=== PATIENT | male | born 1940 | race African-American/Black ===

== ENCOUNTER → 2016-05-28 | Outpatient (CLI) | payer MEDICARE, OTHER | LOC: RAD 09:56 | PROVIDERS: ATTEND Family Medicine | DX: Z01.811 Encounter for preprocedural respiratory examination (principal) | CPT/HCPCS: 71020 ==

== ENCOUNTER 2018-01-29 22:33 | Inpatient (IN) | payer MEDICARE, OTHER ==
[2018-01-29] MEDS ORDERED: NORMAL SALINE 1000 ML 1,000 ML IV ONE (23:18)
--- NOTE | 2018-01-29 23:18 | ER Document Report ---
ED Medical Screen (RME) - General Chief Complaint: Abdominal Pain Stated Complaint: ABDOMINAL PAIN Time Seen by Provider: 01/29/18 23:16 Notes: 77-year-old male that comes to the emergency department for chief complaint of right lower quadrant abdominal pain, symptoms started yesterday and have worsened, he states he barely ate anything today because he has no appetite. Denies fevers, vomiting, flank pain, or any other locations of pain. No abdominal surgeries. TRAVEL OUTSIDE OF THE [place] IN LAST 30 DAYS: No - Related Data Allergies/Adverse Reactions: No Known Allergies Allergy (Verified 05/19/15 09:19) Past Medical History - Past Medical History Cardiac Medical History: Reports: Hx Hypertension Denies: Hx Coronary Artery Disease, Hx Heart Attack Pulmonary Medical History: Reports: Hx Asthma Denies: Hx Bronchitis, Hx COPD, Hx Pneumonia Neurological Medical History: Denies: Hx Cerebrovascular Accident, Hx Seizures Musculoskeltal Medical History: Denies Hx Arthritis - Immunizations Hx Diphtheria, Pertussis, Tetanus Vaccination: No Physical Exam - Vital signs Vitals: Temp Pulse Resp BP Pulse Ox 97.9 F 86 18 100/65 98 01/29/18 23:02 01/29/18 23:02 01/29/18 23:02 01/29/18 23:02 01/29/18 23:02 - Abdominal Tenderness: Tender - Tender in the mid right lower abdomen, exam limited by sitting position Course - Re-evaluation Re-evalutation: Patient is calm, well-appearing, however he does have right lower quadrant tenderness on exam although this is limited by sitting position. Initiating workup. Rechecked blood pressure in triage, systolic 104, diastolic 60s. - Vital Signs Vital signs: Temp Pulse Resp BP Pulse Ox 97.9 F 86 18 100/65 98 01/29/18 23:02 01/29/18 23:02 01/29/18 23:02 01/29/18 23:02 01/29/18 23:02 Doctor's Discharge - Discharge Referrals: YVON STANTON MD [Primary Care Provider] - Follow up as needed
[2018-01-30 00:06] LABS: ABSOLUTE LYMPHOCYTES (AUTO) 1.6 10^3/uL (0.5-4.7); ABSOLUTE MONOCYTES (AUTO) 1.6 10^3/uL (0.1-1.4); BASOPHILS % (AUTO) 0.2 % (0-2); EOSINOPHILS % (AUTO) 0.1 % (0-6); HEMATOCRIT 42.5 % (37.9-51.0); HEMOGLOBIN 14.7 g/dL (13.5-17.0); MEAN CORPUSCULAR HEMOGLOBIN 32.2 pg (27.0-33.4); MEAN CORPUSCULAR HGB CONC 34.6 g/dL (32.0-36.0); MEAN CORPUSCULAR VOLUME 93 fl (80-97); MONOCYTES % (AUTO) 15.4 % (3-13); PLATELET COUNT 197 10^3/uL (150-450); RED BLOOD COUNT 4.55 10^6/uL (4.35-5.55); RED CELL DISTRIBUTION WIDTH 13.7 % (11.5-14.0); SEGMENTED NEUTROPHILS % (AUTO) 68.3 % (42-78); TOTAL CELLS COUNTED % (AUTO) 100 %; WHITE BLOOD COUNT 10.2 10^3/uL (4.0-10.5)
[2018-01-30 00:19] LABS: ALANINE AMINOTRANSFERASE 39 U/L (21-72); ALBUMIN 4.3 g/dL (3.5-5.0); ALKALINE PHOSPHATASE 59 U/L (38-126); ANION GAP 12 (5-19); ASPARTATE AMINO TRANSFERASE 26 U/L (17-59); BILIRUBIN,DIRECT 0.5 mg/dL (0.0-0.4); BILIRUBIN,TOTAL 1.3 mg/dL (0.2-1.3); BLOOD UREA NITROGEN 12 mg/dL (7-20); CALCIUM 9.4 mg/dL (8.4-10.2); CARBON DIOXIDE 24 mmol/L (22-30); CHLORIDE 102 mmol/L (98-107); GLUCOSE 117 mg/dL (75-110); POTASSIUM 4.7 mmol/L (3.6-5.0); SODIUM 137.7 mmol/L (137-145)
[2018-01-30 00:20] LABS: APPEARANCE,URINE CLOUDY; BILIRUBIN,URINE NEGATIVE (NEGATIVE); COLOR,URINE YELLOW; GLUCOSE, URINE NEGATIVE (NEGATIVE); KETONES,URINE TRACE mg/dL (NEGATIVE); LEUKOCYTE ESTERASE,URINE LARGE (NEGATIVE); NITRITE,URINE NEGATIVE (NEGATIVE); PROTEIN,URINE NEGATIVE (NEGATIVE); URINE SPECIFIC GRAVITY 1.017; UROBILINOGEN,URINE NEGATIVE mg/dL (<2.0)
[2018-01-30] MEDS ORDERED: NORMAL SALINE 1000 ML 1,000 ML IV ONE (01:47)
[2018-01-30] MEDS ORDERED: ONDANSETRON HCL INJ/PF 4 MG/2 ML SDV IV ONE (01:47)
[2018-01-30] MEDS ORDERED: MORPHINE SULFATE 10 MG/ML INJ IV ONE (01:48)
--- NOTE | 2018-01-30 01:56 | ER Document Report ---
ED GI/ - General Chief Complaint: Abdominal Pain Stated Complaint: ABDOMINAL PAIN Time Seen by Provider: 01/29/18 23:16 Information source: Patient TRAVEL OUTSIDE OF THE [place] IN LAST 30 DAYS: No - HPI Notes: 01/30/18 01:51 77-year-old male with history of PE on Xarelto presents with right lower quadrant pain starting yesterday. He has a hard time describing it but he states it is not sharp. It presented in the right lower quadrant has not moved. There is no back or flank pain with it and no other radiation. Denies fever nausea or vomiting but he has had significant anorexia. Denies hematuria or dysuria. Denies diarrhea. He is blind so he has not sure if he has had any bleeding. - Related Data Allergies/Adverse Reactions: No Known Allergies Allergy (Verified 05/19/15 09:19) Past Medical History - Social History Smoking Status: Never Smoker Family History: Reviewed & Not Pertinent Patient has suicidal ideation: No Patient has homicidal ideation: No - Past Medical History Cardiac Medical History: Reports: Hx Hypertension Denies: Hx Coronary Artery Disease, Hx Heart Attack Pulmonary Medical History: Reports: Hx Asthma Denies: Hx Bronchitis, Hx COPD, Hx Pneumonia Neurological Medical History: Denies: Hx Cerebrovascular Accident, Hx Seizures Renal/ Medical History: Denies: Hx Peritoneal Dialysis Musculoskeletal Medical History: Denies Hx Arthritis - Immunizations Hx Diphtheria, Pertussis, Tetanus Vaccination: No Review of Systems - Review of Systems -: Yes All other systems reviewed and negative Physical Exam - Vital signs Vitals: Temp Pulse Resp BP Pulse Ox 97.9 F 86 18 100/65 98 01/29/18 23:02 01/29/18 23:02 01/29/18 23:02 01/29/18 23:02 01/29/18 23:02 Interpretation: Normal - Notes Notes: GENERAL: VS as per nursing doc. Well-appearing, well-nourished and in no acute distress. HEAD: Atraumatic, normocephalic. 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 NECK: Normal range of motion, supple without lymphadenopathy. LUNGS: Breath sounds clear to auscultation bilaterally and equal. No wheezes rales or rhonchi. HEART: Regular rate and rhythm without murmurs. ABDOMEN: Soft, No guarding, no rebound but positive Rovsing. No masses appreciated. No [place] sign. BACK: No CVA tenderness. EXTREMITIES: Normal range of motion, no calf tenderness, no edema. NEUROLOGICAL: Cranial nerves grossly intact. Normal speech. Normal sensory and motor exams. No gross cerebellar abnormalities. PSYCH: Normal mood, normal affect. SKIN: Warm, dry, normal turgor, no lesions noted. Course - Re-evaluation Re-evalutation: 01/30/18 02:03 - Vital Signs Vital signs: Temp Pulse Resp BP Pulse Ox 97.9 F 86 18 100/65 98 01/29/18 23:02 01/29/18 23:02 01/29/18 23:02 01/29/18 23:02 01/29/18 23:02 - Laboratory Result Diagrams: 01/29/18 23:40 01/29/18 23:40 Laboratory results interpreted by me: 01/29/18 01/29/18 01/29/18 23:40 23:40 23:40 Monocytes % 15.4 H Absolute Monocytes 1.6 H Creatinine 1.41 H Est GFR ( Amer) 59 L Est GFR (Non-Af Amer) 49 L Glucose 117 H Direct Bilirubin 0.5 H Urine Ketones TRACE H Urine Blood SMALL H Ur Leukocyte Esterase LARGE H Discharge - Discharge Clinical Impression: Diverticulitis large intestine w/o perforation or abscess w/o bleeding Condition: Fair Disposition: ADMITTED INPATIENT Admitting Provider: [facility] Admitted: Medical Floor
--- NOTE | 2018-01-30 02:53 | RADIOLOGY REPORT (SQ) ---
EXAM DESCRIPTION: CT ABDOMEN PELVIS WITH IV CONTRAST COMPLETED DATE/TME: 01/30/2018 00:00 CLINICAL HISTORY: RLQ pain, AFEBRILE, WBC 10.2 COMPARISON: None Available. TECHNIQUE: CT of the abdomen and pelvis performed following IV administration of 100 mL of Omnipaque 350. Portal venous and delayed phase imaging obtained. DLP: 1070.17 mGycm FINDINGS: Lung Bases: The visualized lung bases are clear. Bones: No destructive bone lesions identified. Degenerative change of the spine. Abdomen: Liver: The liver has normal size and density. No intrahepatic mass or biliary dilatation. Gallbladder: No calcified gallstones. Spleen, Pancreas, and Adrenal Glands: The spleen, pancreas, and adrenal glands are unremarkable. Kidneys: The kidneys have normal size and contour without evidence of solid mass or hydronephrosis. Vasculature: Aortoiliac atherosclerosis. IVC is unremarkable. The portal vein is patent. The proximal visceral and renal arteries are patent. Stomach: The stomach and duodenum have normal course. Other: No free intraperitoneal air. Tiny amount of free fluid. Pelvis: Bladder: Urinary bladder is unremarkable. Bowel: Scattered diverticula throughout the colon. There is a large diverticulum arising from the cecum with adjacent inflammatory change. No pericolic abscess formation. Appendix: There is inflammatory change in the proximal aspect of the appendix however the distal appendix is normal caliber and is filled with contrast. Pelvis: Prostate is not enlarged. IMPRESSION: 1. Inflammatory change of the cecum at the site of a cecal diverticulum. Findings most suggestive of cecal diverticulitis. The cecal diverticulum is near the origin of the appendix. The proximal appendix does appear mildly inflamed however the appendix distally has normal caliber and fills with oral contrast. Acute appendicitis is considered less likely. Continued CT follow-up may be helpful. Urgent finding reported to Dr. Kendrick at 01/30/2018 1:51 AM CDT This exam was performed according to our departmental dose-optimization program, which includes automated exposure control, adjustment of the mA and/or kV according to patient size and/or use of iterative reconstruction technique.
[2018-01-30] MEDS ORDERED: CIPROFLOXACIN 400 MG/D5W RTU 400 MG/200 ML RTUPB IV ONE (03:02)
[2018-01-30] MEDS ORDERED: ONDANSETRON HCL INJ/PF 4 MG/2 ML SDV IV PRN (03:07)
[2018-01-30] MEDS ORDERED: METRONIDAZOLE 500 MG/NS RTU 500 MG/100 ML RTUPB IV ONE (03:30)
[2018-01-30] MEDS: MORPHINE SULFATE 10 MG/ML INJ IV PRN ×3 (05:57→22:28)
[2018-01-30] MEDS: NORMAL SALINE 1000 ML 1,000 ML IV PRN (07:30)
[2018-01-30] MEDS: METRONIDAZOLE 500 MG/NS RTU 500 MG/100 ML RTUPB IV SCH ×3 (08:59→20:57)
--- NOTE | 2018-01-30 09:53 | PDOC H&P ---
History of Present Illness Admission Date/PCP: 01/30/18 03:33 YVON STANTON MD Patient complains of: Right lower quadrant pain History of Present Illness: EMELI DAMON is a 77 year old male This is a 77-year-old male with the history of the hypertensions history of postherpetic chronic pain and a history of the pulmonary embolism diagnosed in the May 2017 with Unprovoked Currently on Xarelto 20 mg p.o. dailyCame to the emergency department with a complaint of right lower quadrant pain started yesterday denied any nausea no vomiting denied any blood in the stools or any black stools Initial workup in the emergency department the CT abdomen and pelvis with a possible cecum diverticulitis no Sign of any acute appendicitis as per discussed with your physicians to the Dr. Stovall Suggest no need any surgical intervention at this point When I saw the patient in the emergency department patient was feeling better still having some pain but controlled with the pain medications denied any nausea no vomiting Patient's denied any chest pain denied any shortness of the breath Patient's denied any history of coronary disease in the past Since last colonoscopy was done 3 years back was all stable Past Medical History Cardiac Medical History: Reports: Hypertension Denies: Coronary Artery Disease, Myocardial Infarction Pulmonary Medical History: Reports: Asthma Denies: Bronchitis, Chronic Obstructive Pulmonary Disease (COPD), Pneumonia Neurological Medical History: Denies: Seizures Musculoskeltal Medical History: Denies: Arthritis Hematology: Denies: Anemia Social History Smoking Status: Never Smoker Frequency of Alcohol Use: None Hx Recreational Drug Use: No Hx Prescription Drug Abuse: No Family History Family History: Reviewed & Not Pertinent Parental Family History Reviewed: Yes Children Family History Reviewed: Yes Sibling(s) Family History Reviewed.: Yes Medication/Allergy Allergies/Adverse Reactions: No Known Allergies Allergy (Verified 05/19/15 09:19) Review of Systems Constitutional: ABSENT: chills, fever(s), headache(s), weight gain, weight loss Eyes: ABSENT: visual disturbances Ears: ABSENT: hearing changes Cardiovascular: ABSENT: chest pain, dyspnea on exertion, edema, orthropnea, palpitations Respiratory: ABSENT: cough, hemoptysis Gastrointestinal: PRESENT: abdominal pain. ABSENT: constipation, diarrhea, hematemesis, hematochezia, nausea, vomiting Genitourinary: ABSENT: dysuria, hematuria Musculoskeletal: ABSENT: joint swelling Integumentary: ABSENT: rash, wounds Neurological: ABSENT: abnormal gait, abnormal speech, confusion, dizziness, focal weakness, syncope Psychiatric: ABSENT: anxiety, depression, homidical ideation, suicidal ideation Endocrine: ABSENT: cold intolerance, heat intolerance, menstrual abnormalities, polydipsia, polyuria Hematologic/Lymphatic: ABSENT: easy bleeding, easy bruising, lymphadenopathy Physical Exam Vital Signs: Temp Pulse Resp BP Pulse Ox 98.1 F 74 11 L 116/57 L 97 01/30/18 06:03 01/30/18 06:03 01/30/18 06:03 01/30/18 06:03 01/30/18 06:03 Intake & Output 01/29/18 01/30/18 01/31/18 06:59 06:59 06:59 Intake Total 300 Output Total 400 Balance 300 -400 General appearance: PRESENT: no acute distress, well-developed, well-nourished Head exam: PRESENT: atraumatic, normocephalic Eye exam: PRESENT: conjunctiva pink, EOMI, PERRLA. ABSENT: scleral icterus Ear exam: PRESENT: normal external ear exam Mouth exam: PRESENT: moist, tongue midline Neck exam: PRESENT: full ROM. ABSENT: carotid bruit, JVD, lymphadenopathy, thyromegaly Respiratory exam: PRESENT: clear to auscultation [place] Cardiovascular exam: PRESENT: RRR. ABSENT: diastolic murmur, rubs, systolic murmur Pulses: PRESENT: normal dorsalis pedis pul, +2 pedal pulses bilateral Vascular exam: PRESENT: normal capillary refill GI/Abdominal exam: PRESENT: normal bowel sounds, soft, tenderness. ABSENT: distended, guarding, mass, organolmegaly, rebound Additonal comments: In the right lower quadrant area Rectal exam: PRESENT: deferred Extremities exam: ABSENT: pedal edema Musculoskeletal exam: PRESENT: ambulatory Neurological exam: PRESENT: alert, awake, oriented to person, oriented to place , oriented to time, oriented to situation, CN II-XII grossly intact. ABSENT: motor sensory deficit Psychiatric exam: PRESENT: appropriate affect, normal mood. ABSENT: homicidal ideation, suicidal ideation Skin exam: PRESENT: dry, intact, warm. ABSENT: cyanosis, rash Results Impressions: Abdomen/Pelvis CT 01/30/18 00:00 IMPRESSION: 1. Inflammatory change of the cecum at the site of a cecal diverticulum. Findings most suggestive of cecal diverticulitis. The cecal diverticulum is near the origin of the appendix. The proximal appendix does appear mildly inflamed however the appendix distally has normal caliber and fills with oral contrast. Acute appendicitis is considered less likely. Continued CT follow-up may be helpful. Urgent finding reported to Dr. Kendrick at 01/30/2018 1:51 AM CDT This exam was performed according to our departmental dose-optimization program, which includes automated exposure control, adjustment of the mA and/or kV according to patient size and/or use of iterative reconstruction technique. Assessment & Plan - Diagnosis (1) Diverticulitis large intestine w/o perforation or abscess w/o bleeding Is this a current diagnosis for this admission?: Yes Plan: Continues to IV Cipro and Flagyl continuous IV fluid keep her n.p.o. until the surgical evaluations completely done (2) Hypertension Qualifiers: Hypertension type: essential hypertension Qualified Code(s): I10 - Essential (primary) hypertension Is this a current diagnosis for this admission?: Yes Plan: Continues to current medications (3) Pulmonary embolism Qualifiers: Pulmonary embolism type: other Chronicity: chronic Acute cor pulmonale presence: without acute cor pulmonale Qualified Code(s): I27.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 Is this a current diagnosis for this admission?: Yes Plan: Currently hold the Xarelto and start the patient on Lovenox therapy Patient's first episode was in May 2017 but currently is not visible to stop the Xarelto completely due to the infections possible patients need to reevaluate to stop the medications after 6 week of this episodes (4) Neuralgia, post-herpetic Is this a current diagnosis for this admission?: Yes Plan: Continues to gabapentin - Time Time Spent: 30 to 50 Minutes Medications reviewed and adjusted accordingly: Yes Anticipated discharge: Home Within: Other - Inpatient Certification Based on my medical assessment, after consideration of the patient's comorbidities, presenting symptoms, or acuity I expect that the services needed warrant INPATIENT care.: Yes I certify that my determination is in accordance with my understanding of Medicare's requirements for reasonable and necessary INPATIENT services [42 CFR 412.3e].: Yes Medical Necessity: Need Close Monitoring Due to Risk of Patient Decompensation, Need For IV Fluids, Need for IV Antibiotics Post Hospital Care: D/C Tie Layer Documentation - Plan Summary Plan Summary: Admit in the medical floor see other MD orders consult the surgery continues to IV antibiotic
[2018-01-30] MEDS: FAMOTIDINE INJ/PF 20 MG/2 ML SDV IV SCH ×2 (10:28→21:18)
[2018-01-30] MEDS: CIPROFLOXACIN 400 MG/D5W RTU 400 MG/200 ML RTUPB IV SCH (17:33)
[2018-01-30 17:37] LABS: APPEARANCE,URINE SLIGHTLY-CLOUDY; BILIRUBIN,URINE NEGATIVE (NEGATIVE); COLOR,URINE YELLOW; GLUCOSE, URINE NEGATIVE (NEGATIVE); KETONES,URINE TRACE mg/dL (NEGATIVE); LEUKOCYTE ESTERASE,URINE LARGE (NEGATIVE); NITRITE,URINE NEGATIVE (NEGATIVE); PROTEIN,URINE NEGATIVE (NEGATIVE); UROBILINOGEN,URINE NEGATIVE mg/dL (<2.0)
[2018-01-30] MEDS ORDERED: DORZOLAMIDE OU SCH (18:00)
[2018-01-30] MEDS ORDERED: BRIMONIDINE OU SCH (18:00)
[2018-01-30] MEDS ORDERED: [UNRECOGNIZED DRUG - OTHER] OU SCH (18:00)
[2018-01-30] MEDS: TIMOLOL MALEATE 0.5% OPH SOLN 5 ML OU SCH (18:52)
[2018-01-30] MEDS: ACETAMINOPHEN 325 MG TABLET PO PRN (20:51)
[2018-01-30] MEDS: ENOXAPARIN SODIUM INJ 100 MG/1 ML DISP.SYRIN SUBCUT SCH (21:17)
[2018-01-31] MEDS: ACETAMINOPHEN 325 MG TABLET PO PRN ×2 (00:51→06:22)
[2018-01-31] MEDS: METRONIDAZOLE 500 MG/NS RTU 500 MG/100 ML RTUPB IV SCH ×4 (02:33→21:10)
[2018-01-31] MEDS: CIPROFLOXACIN 400 MG/D5W RTU 400 MG/200 ML RTUPB IV SCH ×2 (05:00→17:06)
[2018-01-31 05:52] LABS: ABSOLUTE LYMPHOCYTES (AUTO) 1.4 10^3/uL (0.5-4.7); ABSOLUTE NEUT (AUTO) 9.8 10^3/uL (1.7-8.2); BASOPHILS % (AUTO) 0.2 % (0-2); EOSINOPHILS % (AUTO) 0.1 % (0-6); HEMATOCRIT 36.9 % (37.9-51.0); LYMPHOCYTES % (AUTO) 10.9 % (13-45); MEAN CORPUSCULAR HEMOGLOBIN 31.8 pg (27.0-33.4); MEAN CORPUSCULAR HGB CONC 33.5 g/dL (32.0-36.0); MEAN CORPUSCULAR VOLUME 95 fl (80-97); MONOCYTES % (AUTO) 14.8 % (3-13); PLATELET COUNT 147 10^3/uL (150-450); RED CELL DISTRIBUTION WIDTH 14.1 % (11.5-14.0); TOTAL CELLS COUNTED % (AUTO) 100 %; WHITE BLOOD COUNT 13.2 10^3/uL (4.0-10.5)
[2018-01-31 06:11] LABS: HEMOGLOBIN 12.4 g/dL (13.5-17.0)
[2018-01-31 06:20] LABS: ALANINE AMINOTRANSFERASE 25 U/L (21-72); ALBUMIN 2.9 g/dL (3.5-5.0); ALKALINE PHOSPHATASE 43 U/L (38-126); ANION GAP 8 (5-19); ASPARTATE AMINO TRANSFERASE 15 U/L (17-59); BILIRUBIN,DIRECT 1.1 mg/dL (0.0-0.4); BILIRUBIN,TOTAL 1.6 mg/dL (0.2-1.3); BLOOD UREA NITROGEN 10 mg/dL (7-20); CALCIUM 7.8 mg/dL (8.4-10.2); CARBON DIOXIDE 22 mmol/L (22-30); CHLORIDE 106 mmol/L (98-107); GLUCOSE 96 mg/dL (75-110); POTASSIUM 3.8 mmol/L (3.6-5.0); SODIUM 135.6 mmol/L (137-145); TOTAL PROTEIN 5.8 g/dL (6.3-8.2)
[2018-01-31] MEDS: ENOXAPARIN SODIUM INJ 100 MG/1 ML DISP.SYRIN SUBCUT SCH ×2 (09:13→21:16)
[2018-01-31] MEDS: AMLODIPINE BESYLATE 5 MG TABLET PO SCH (09:14)
[2018-01-31] MEDS: FAMOTIDINE INJ/PF 20 MG/2 ML SDV IV SCH ×2 (09:14→21:07)
[2018-01-31] MEDS: TIMOLOL MALEATE 0.5% OPH SOLN 5 ML OU SCH ×2 (11:16→17:07)
[2018-01-31] MEDS: MORPHINE SULFATE 10 MG/ML INJ IV PRN ×2 (15:38→20:31)
--- NOTE | 2018-01-31 18:13 | PDOC PROGRESS REPORT ---
Subjective Progress Note for:: 01/31/18 Subjective:: Patient seen by the bedside, admitted for acute diverticulitis of the colon, complaining of pain in the right lower quadrant Reason For Visit: ABD PAIN Physical Exam Vital Signs: Temp Pulse Resp BP Pulse Ox 99.9 F 92 20 127/64 H 95 01/31/18 15:16 01/31/18 15:16 01/31/18 15:16 01/31/18 15:16 01/31/18 15:16 Intake & Output 01/30/18 01/31/18 02/01/18 06:59 06:59 06:59 Intake Total 300 1800 200 Output Total 1375 425 Balance 300 425 -225 Weight 96.3 kg General appearance: PRESENT: no acute distress Eye exam: PRESENT: PERRLA Respiratory exam: PRESENT: clear to auscultation [place] Cardiovascular exam: PRESENT: +S1, +S2 GI/Abdominal exam: PRESENT: tenderness - RLQ abdomen Neurological exam: PRESENT: alert Results Laboratory Results: 01/31/18 04:39 01/31/18 04:39 01/31/18 01/31/18 04:39 04:39 WBC 13.2 H RBC 3.90 L Hgb 12.4 L D Hct 36.9 L MCV 95 MCH 31.8 MCHC 33.5 RDW 14.1 H Plt Count 147 L Seg Neutrophils % 74.0 Lymphocytes % 10.9 L Monocytes % 14.8 H Eosinophils % 0.1 Basophils % 0.2 Absolute Neutrophils 9.8 H Absolute Lymphocytes 1.4 Absolute Monocytes 2.0 H Absolute Eosinophils 0.0 Absolute Basophils 0.0 Sodium 135.6 L Potassium 3.8 Chloride 106 Carbon Dioxide 22 Anion Gap 8 BUN 10 Creatinine 1.19 Est GFR ( Amer) > 60 Est GFR (Non-Af Amer) > 60 Glucose 96 Calcium 7.8 L Total Bilirubin 1.6 H AST 15 L ALT 25 Alkaline Phosphatase 43 Total Protein 5.8 L Albumin 2.9 L Impressions: Abdomen/Pelvis CT 01/30/18 00:00 IMPRESSION: 1. Inflammatory change of the cecum at the site of a cecal diverticulum. Findings most suggestive of cecal diverticulitis. The cecal diverticulum is near the origin of the appendix. The proximal appendix does appear mildly inflamed however the appendix distally has normal caliber and fills with oral contrast. Acute appendicitis is considered less likely. Continued CT follow-up may be helpful. Urgent finding reported to Dr. Kendrick at 01/30/2018 1:51 AM CDT This exam was performed according to our departmental dose-optimization program, which includes automated exposure control, adjustment of the mA and/or kV according to patient size and/or use of iterative reconstruction technique. Assessment & Plan - Diagnosis (1) Diverticulitis large intestine w/o perforation or abscess w/o bleeding Is this a current diagnosis for this admission?: Yes Plan: Continue IV antibiotic start clear liquid diet (2) Hypertension Qualifiers: Hypertension type: essential hypertension Qualified Code(s): I10 - Essential (primary) hypertension Is this a current diagnosis for this admission?: Yes (3) Neuralgia, post-herpetic Is this a current diagnosis for this admission?: Yes (4) Pulmonary embolism Qualifiers: Pulmonary embolism type: other Chronicity: chronic Acute cor pulmonale presence: without acute cor pulmonale Qualified Code(s): I27.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 Is this a current diagnosis for this admission?: Yes
[2018-02-01] MEDS: ACETAMINOPHEN 325 MG TABLET PO PRN (02:05)
[2018-02-01] MEDS: METRONIDAZOLE 500 MG/NS RTU 500 MG/100 ML RTUPB IV SCH ×4 (02:05→21:11)
[2018-02-01] MEDS: CIPROFLOXACIN 400 MG/D5W RTU 400 MG/200 ML RTUPB IV SCH ×2 (05:19→17:27)
[2018-02-01 05:49] LABS: HEMOGLOBIN 11.5 g/dL (13.5-17.0); MEAN CORPUSCULAR HEMOGLOBIN 31.7 pg (27.0-33.4); MEAN CORPUSCULAR HGB CONC 33.8 g/dL (32.0-36.0); MEAN CORPUSCULAR VOLUME 94 fl (80-97); PLATELET COUNT 153 10^3/uL (150-450); RED BLOOD COUNT 3.63 10^6/uL (4.35-5.55); RED CELL DISTRIBUTION WIDTH 14.3 % (11.5-14.0)
[2018-02-01 06:08] LABS: ABSOLUTE LYMPHOCYTES# (MANUAL) 0.8 10^3/uL (0.5-4.7); ABSOLUTE MONOCYTES # (MANUAL) 1.9 10^3/uL (0.1-1.4); ABSOLUTE NEUTROPHILS# (MANUAL) 9.2 10^3/uL (1.7-8.2); BAND NEUTROPHILS % (MANUAL) 2 % (3-5); BASOPHILS % (MANUAL) 0 % (0-2); EOSINOPHILS % (MANUAL) 0 % (0-6); LYMPHOCYTES % (MANUAL) 7 % (13-45); MONOCYTES % (MANUAL) 16 % (3-13); SEGMENTED NEUTROPHILS % (MAN) 75 % (42-78); TOTAL CELLS COUNTED 100
[2018-02-01 06:09] LABS: ANISOCYTOSIS SLIGHT; PLATELET CLUMPS PRESENT; PLATELET COMMENT ADEQUATE; TOXIC GRANULATION 1+; TOXIC VACUOLATION PRESENT
[2018-02-01 06:18] LABS: ANION GAP 7 (5-19); BLOOD UREA NITROGEN 9 mg/dL (7-20); CALCIUM 7.6 mg/dL (8.4-10.2); CARBON DIOXIDE 22 mmol/L (22-30); CHLORIDE 106 mmol/L (98-107); GLUCOSE 108 mg/dL (75-110); POTASSIUM 3.7 mmol/L (3.6-5.0); SODIUM 134.6 mmol/L (137-145)
[2018-02-01] MEDS: FAMOTIDINE INJ/PF 20 MG/2 ML SDV IV SCH ×2 (09:31→21:11)
[2018-02-01] MEDS: ENOXAPARIN SODIUM INJ 100 MG/1 ML DISP.SYRIN SUBCUT SCH ×2 (09:31→21:11)
[2018-02-01] MEDS: AMLODIPINE BESYLATE 5 MG TABLET PO SCH (09:31)
[2018-02-01] MEDS: TIMOLOL MALEATE 0.5% OPH SOLN 5 ML OU SCH ×2 (14:15→17:28)
[2018-02-01] MEDS: NORMAL SALINE 1000 ML 1,000 ML IV PRN (14:29)
--- NOTE | 2018-02-01 19:32 | PDOC PROGRESS REPORT ---
Subjective Progress Note for:: 02/01/18 Subjective:: Patient was seen by the bedside, he is responding to treatment, he has less pain in the right lower quadrant today, yesterday he was started on clear liquid diet, the food would be advanced to soft diet today Reason For Visit: ABD PAIN Physical Exam Vital Signs: Temp Pulse Resp BP Pulse Ox 98.1 F 76 18 118/62 98 02/01/18 16:00 02/01/18 16:00 02/01/18 16:00 02/01/18 16:00 02/01/18 16:00 Intake & Output 01/31/18 02/01/18 02/02/18 06:59 06:59 06:59 Intake Total 1800 1023 1500 Output Total 1375 925 500 Balance 803 88 3817 Weight 96.3 kg 96.4 kg General appearance: PRESENT: no acute distress Eye exam: PRESENT: PERRLA Respiratory exam: PRESENT: clear to auscultation [place] Cardiovascular exam: PRESENT: +S1, +S2 GI/Abdominal exam: PRESENT: soft Neurological exam: PRESENT: alert Results Laboratory Results: 02/01/18 04:44 02/01/18 04:44 02/01/18 02/01/18 04:44 04:44 WBC 12.0 H RBC 3.63 L Hgb 11.5 L Hct 34.0 L MCV 94 MCH 31.7 MCHC 33.8 RDW 14.3 H Plt Count 153 Seg Neutrophils % Not Reportable Lymphocytes % Not Reportable Monocytes % Not Reportable Eosinophils % Not Reportable Basophils % Not Reportable Absolute Neutrophils Not Reportable Absolute Lymphocytes Not Reportable Absolute Monocytes Not Reportable Absolute Eosinophils Not Reportable Absolute Basophils Not Reportable Sodium 134.6 L Potassium 3.7 Chloride 106 Carbon Dioxide 22 Anion Gap 7 BUN 9 Creatinine 1.16 Est GFR ( Amer) > 60 Est GFR (Non-Af Amer) > 60 Glucose 108 Calcium 7.6 L Impressions: Abdomen/Pelvis CT 01/30/18 00:00 IMPRESSION: 1. Inflammatory change of the cecum at the site of a cecal diverticulum. Findings most suggestive of cecal diverticulitis. The cecal diverticulum is near the origin of the appendix. The proximal appendix does appear mildly inflamed however the appendix distally has normal caliber and fills with oral contrast. Acute appendicitis is considered less likely. Continued CT follow-up may be helpful. Urgent finding reported to Dr. Kendrick at 01/30/2018 1:51 AM CDT This exam was performed according to our departmental dose-optimization program, which includes automated exposure control, adjustment of the mA and/or kV according to patient size and/or use of iterative reconstruction technique. Assessment & Plan - Diagnosis (1) Diverticulitis large intestine w/o perforation or abscess w/o bleeding Is this a current diagnosis for this admission?: Yes Plan: Continue IV antibiotic advance diet to soft diet (2) Hypertension Qualifiers: Hypertension type: essential hypertension Qualified Code(s): I10 - Essential (primary) hypertension Is this a current diagnosis for this admission?: Yes (3) Neuralgia, post-herpetic Is this a current diagnosis for this admission?: Yes (4) Pulmonary embolism Qualifiers: Pulmonary embolism type: other Chronicity: chronic Acute cor pulmonale presence: without acute cor pulmonale Qualified Code(s): I27.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 Is this a current diagnosis for this admission?: Yes
[2018-02-02] MEDS: METRONIDAZOLE 500 MG/NS RTU 500 MG/100 ML RTUPB IV SCH ×4 (02:01→22:40)
[2018-02-02] MEDS: CIPROFLOXACIN 400 MG/D5W RTU 400 MG/200 ML RTUPB IV SCH ×2 (05:04→17:29)
[2018-02-02 06:16] LABS: HEMATOCRIT 34.8 % (37.9-51.0); MEAN CORPUSCULAR HEMOGLOBIN 32.1 pg (27.0-33.4); MEAN CORPUSCULAR HGB CONC 34.6 g/dL (32.0-36.0); MEAN CORPUSCULAR VOLUME 93 fl (80-97); PLATELET COUNT 180 10^3/uL (150-450); RED BLOOD COUNT 3.75 10^6/uL (4.35-5.55); RED CELL DISTRIBUTION WIDTH 14.4 % (11.5-14.0); WHITE BLOOD COUNT 10.3 10^3/uL (4.0-10.5)
[2018-02-02 06:44] LABS: ANION GAP 7 (5-19); BLOOD UREA NITROGEN 6 mg/dL (7-20); CALCIUM 7.6 mg/dL (8.4-10.2); CARBON DIOXIDE 22 mmol/L (22-30); CHLORIDE 106 mmol/L (98-107); GLUCOSE 101 mg/dL (75-110); POTASSIUM 3.6 mmol/L (3.6-5.0); SODIUM 135.3 mmol/L (137-145)
[2018-02-02] MEDS ORDERED: NORMAL SALINE 1000 ML 1,000 ML IV PRN (08:11)
[2018-02-02] MEDS: ENOXAPARIN SODIUM INJ 100 MG/1 ML DISP.SYRIN SUBCUT SCH (09:37)
[2018-02-02] MEDS: AMLODIPINE BESYLATE 5 MG TABLET PO SCH (09:37)
[2018-02-02] MEDS: FAMOTIDINE INJ/PF 20 MG/2 ML SDV IV SCH ×2 (09:37→22:40)
--- NOTE | 2018-02-02 09:41 | PDOC PROGRESS REPORT ---
Subjective Progress Note for:: 02/02/18 Subjective:: Patient is feeling much better Tolerate the soft diet without any problems and desired to go home Patient's denied any abdominal pain no nausea no vomiting No fever and no chills Reason For Visit: ABD PAIN Physical Exam Vital Signs: Temp Pulse Resp BP Pulse Ox 99.1 F 81 18 138/66 H 95 02/02/18 07:26 02/02/18 07:26 02/02/18 07:26 02/02/18 07:26 02/02/18 07:26 Intake & Output 02/01/18 02/02/18 02/03/18 06:59 06:59 06:59 Intake Total 1023 3144 Output Total 925 500 Balance 98 2644 Weight 96.4 kg 95.5 kg General appearance: PRESENT: no acute distress, well-developed, well-nourished Head exam: PRESENT: atraumatic, normocephalic Eye exam: PRESENT: conjunctiva pink, EOMI, PERRLA. ABSENT: scleral icterus Ear exam: PRESENT: normal external ear exam Mouth exam: PRESENT: moist, tongue midline Neck exam: PRESENT: full ROM. ABSENT: carotid bruit, JVD, lymphadenopathy, thyromegaly Respiratory exam: PRESENT: clear to auscultation chadwick Cardiovascular exam: PRESENT: RRR. ABSENT: diastolic murmur, rubs, systolic murmur Pulses: PRESENT: normal dorsalis pedis pul, +2 pedal pulses bilateral Vascular exam: PRESENT: normal capillary refill GI/Abdominal exam: PRESENT: normal bowel sounds, soft. ABSENT: distended, guarding, mass, organolmegaly, rebound, tenderness Rectal exam: PRESENT: deferred Extremities exam: ABSENT: pedal edema Musculoskeletal exam: PRESENT: ambulatory Neurological exam: PRESENT: alert, awake, oriented to person, oriented to place , oriented to time, oriented to situation, CN II-XII grossly intact. ABSENT: motor sensory deficit Psychiatric exam: PRESENT: appropriate affect, normal mood. ABSENT: homicidal ideation, suicidal ideation Skin exam: PRESENT: dry, intact, warm. ABSENT: cyanosis, rash Results Laboratory Results: 02/02/18 04:30 02/02/18 04:30 02/02/18 02/02/18 04:30 04:30 WBC 10.3 RBC 3.75 L Hgb 12.0 L Hct 34.8 L MCV 93 MCH 32.1 MCHC 34.6 RDW 14.4 H Plt Count 180 Sodium 135.3 L Potassium 3.6 Chloride 106 Carbon Dioxide 22 Anion Gap 7 BUN 6 L Creatinine 0.99 Est GFR ( Amer) > 60 Est GFR (Non-Af Amer) > 60 Glucose 101 Calcium 7.6 L Impressions: Abdomen/Pelvis CT 01/30/18 00:00 IMPRESSION: 1. Inflammatory change of the cecum at the site of a cecal diverticulum. Findings most suggestive of cecal diverticulitis. The cecal diverticulum is near the origin of the appendix. The proximal appendix does appear mildly inflamed however the appendix distally has normal caliber and fills with oral contrast. Acute appendicitis is considered less likely. Continued CT follow-up may be helpful. Urgent finding reported to Dr. Kendrick at 01/30/2018 1:51 AM CDT This exam was performed according to our departmental dose-optimization program, which includes automated exposure control, adjustment of the mA and/or kV according to patient size and/or use of iterative reconstruction technique. Assessment & Plan - Diagnosis (1) Diverticulitis large intestine w/o perforation or abscess w/o bleeding Is this a current diagnosis for this admission?: Yes Plan: Patient is currently doing well will continue Cipro and Flagyl (2) Hypertension Qualifiers: Hypertension type: essential hypertension Qualified Code(s): I10 - Essential (primary) hypertension Is this a current diagnosis for this admission?: Yes Plan: Continues to current medications (3) Pulmonary embolism Qualifiers: Pulmonary embolism type: other Chronicity: chronic Acute cor pulmonale presence: without acute cor pulmonale Qualified Code(s): I27.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 Is this a current diagnosis for this admission?: Yes Plan: Currently hold the Xarelto and start the patient on Lovenox therapy Patient's first episode was in May 2017 but currently is not visible to stop the Xarelto completely due to the infections possible patients need to reevaluate to stop the medications after 6 week of this episodes (4) Neuralgia, post-herpetic Is this a current diagnosis for this admission?: Yes Plan: Continues to gabapentin - Time Time Spent with patient: 15-24 minutes Medications reviewed and adjusted accordingly: Yes Anticipated discharge: Home Within: within 24 hours, Other - Inpatient Certification Medical Necessity: Need Close Monitoring Due to Risk of Patient Decompensation, Need for IV Antibiotics 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
[2018-02-02] MEDS ORDERED: RIVAROXABAN 10 MG TABLET PO SCH (10:00)
[2018-02-02] MEDS: TIMOLOL MALEATE 0.5% OPH SOLN 5 ML OU SCH ×2 (10:46→17:31)
--- NOTE | 2018-02-02 16:18 | RADIOLOGY REPORT (SQ) ---
EXAM DESCRIPTION: CT ABD/PELVIS NO ORAL OR IV COMPLETED DATE/TIME: 02/02/2018 3:55 pm REASON FOR STUDY: Right-sided diverticulitis persistent right lower quadrant pain COMPARISON: CT abdomen pelvis 01/30/2018 TECHNIQUE: CT scan of the abdomen and pelvis performed without intravenous contrast. Patient drank oral contrast Images reviewed with lung, soft tissue, and bone windows. Reconstructed coronal and sagittal MPR imag es reviewed. All images stored on PACS. All CT scanners at this facility use dose modulation, iterative reconstruction, and/or weight based d osing when appropriate to reduce radiation dose to as low as reasonably achievable (ALARA). [facility]: Dose Right [facility]: CareDose [facility]: Dose Right [facility]: Teradose 4D [facility]: [employer] RADIATION DOSE: CT Rad equipment meets quality standard of care and radiation dose reduction techniq ues were employed. CTDIvol: 11.3 mGy. DLP: 597 mGy-cm.mGy. LIMITATIONS: None. FINDINGS: Prior CT 01/30/2018 was reviewed in conjunction with the current exam. On the current study, there is inflammation around the cecum, extending down through the appendix and along the right iliopsoas. Cecum is thick walled. Appendix is distended, with an at appendicolith present. Adjacent to the appendix tip, a 3 cm rim enhancing abscess is present with air bubbles. Th is is worrisome for perforated appendicitis with abscess formation. This result was discussed with Dr. Stanton, 1600 hours 02/02/2018. There is oral contrast throughout the remainder of the gastrointestinal tract without evidence of bow el obstruction. There are scattered descending colon diverticuli without CT signs of acute diverticu litis left colon. No free cul-de-sac pelvic fluid. No free intraperitoneal air. LOWER CHEST: Trace right pleural effusion with bibasilar minimal atelectasis. NON-CONTRASTED LIVER, SPLEEN, ADRENALS: Evaluation limited by lack of IV contrast. No identified sign ificant masses. PANCREAS: No masses. No peripancreatic inflammatory changes. GALLBLADDER: No identified stones by CT criteria. No inflammatory changes to suggest cholecystitis. RIGHT KIDNEY AND URETER: No suspicious masses. Assessment limited by lack of IV contrast. No signif icant calcifications. No hydronephrosis or hydroureter. LEFT KIDNEY AND URETER: No suspicious masses. Assessment limited by lack of IV contrast. No signifi cant calcifications. No hydronephrosis or hydroureter. AORTA AND RETROPERITONEUM: No aneurysm. No retroperitoneal masses or adenopathy. BOWEL AND PERITONEAL CAVITY: As above APPENDIX: As above PELVIS, BLADDER, AND ABDOMINAL WALL:No abnormal masses. No free fluid. Bladder normal. BONES: No significant findings. OTHER: No other significant finding. IMPRESSION: Findings worrisome for perforated appendicitis with 3 cm abscess at the appendiceal tip. There is inflammation of the cecum with inflammation in the mesenteric fat along the right iliopsoa s region. COMMENT: Pertinent findings on the imaging study reported as a CRITICAL RESULT to YVON STANTON MD at16:00 on 02/02/2018. Category of Critical Result: Perforated appendicitis Quality ID # [id number]: Final reports with documentation of one or more dose reduction techniques (e.g., Au tomated exposure control, adjustment of the mA and/or kV according to patient size, use of iterative reconstruction technique) TECHNICAL DOCUMENTATION: JOB ID: [id number] [employer]- All Rights Reserved Reading location - IP/workstation name: [facility]
[2018-02-02] MEDS ORDERED: DEXTROSE 40% GEL 15 GM TUBE PO PRN ×2 (20:38)
[2018-02-02] MEDS ORDERED: GLUCAGON,HUMAN RECOMB 1 MG INJ SUBCUT PRN (20:38)
[2018-02-02] MEDS ORDERED: DEXTROSE 50%-WATER 25 GM/50 ML DISP.SYRIN IV PRN ×2 (20:38)
--- NOTE | 2018-02-02 20:58 | PDOC CONSULTATION ---
Consultation Consult Date: 02/02/18 Attending physician:: YVON CASH Consult reason:: Acute appendicitis History of Present Illness Admission Date/PCP: 01/30/18 03:33 YVON CASH MD History of Present Illness: EMELI DAMON is a 77 year old male Who was admitted to the hospital under the care of Dr. Cash approximately 4 days ago for right lower quadrant abdominal pain anorexia bloating and low- grade fever and chills as well as weakness. The patient was seen in the emergency department via ground rescue, evaluated and felt to have acute inflammatory process involving the cecum. CT scan of the abdomen and pelvis with oral contrast revealed possible cecal diverticulitis with localized perforation. Opinion was rendered by surgeon adult education teacher who recommended nonoperative management, intravenous antibiotics and close follow-up. He was initially kept n.p.o., started on IV ciprofloxacin and Flagyl, clinically improved, diet advanced and today wanted to be discharged home. Dr. Cash reexamined the patient this afternoon and found to have significant right lower quadrant tenderness with bloating. A repeat CT scan of the abdomen and pelvis revealed consolidated right lower quadrant abscess adjacent to the appendix, anterior to the cecum. This was interpreted by Dr. Jackson as contained, perforated appendicitis. Surgery was reconsulted and the patient was evaluated by Dr. Blancas this evening. According the patient other than not having a bowel movement and feeling bloated and somewhat uncomfortable, he has felt better since admission. Patient denies history of trauma, previous GI problems or knowledge of any colonic issues. He underwent colonoscopy by Dr. Cook approximate 4 years ago, reportedly no abnormal findings. He is status post EGD approximately [address] Olivier for gastritis and duodenitis. There is no known family history of colon cancer. Furthermore the patient states prior to last week, he was doing well tolerating a diet and having no gastrointestinal problems or any constitutional symptoms. 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, blind right eye; history of pulmonary embolus May 2017 on 10 a inhibitor Cardiac Medical History: Reports: Hypertension Denies: Coronary Artery Disease, Myocardial Infarction Pulmonary Medical History: Reports: Asthma Denies: Bronchitis, Chronic Obstructive Pulmonary Disease (COPD), Pneumonia Neurological Medical History: Denies: Seizures Musculoskeltal Medical History: Denies: Arthritis Hematology: Denies: Anemia Past Surgical History Past Surgical History: History of eye surgery Social History Smoking Status: Former Smoker Frequency of Alcohol Use: Occasional Hx Recreational Drug Use: No Hx Prescription Drug Abuse: No - Advance Directive Resuscitation Status: Full Code Family History Family History: Reviewed & Not Pertinent Parental Family History Reviewed: Yes Children Family History Reviewed: Yes Sibling(s) Family History Reviewed.: Yes Medication/Allergy Home Medications: Amlodipine Besylate [Norvasc 5 mg Tablet] 5 mg PO DAILY 01/30/18 Brimonidine/Dorzolamide/Pf [Brimonidine 0.15%-Dorzolam 2%] 1 drop OU BID Ergocalciferol (Vitamin D2) [Vitamin D2] 50,000 unit PO MO@1000 01/30/18 Rivaroxaban [Xarelto] 20 mg PO DAILY 01/30/18 Sildenafil Citrate [Viagra] 50 mg PO DAILYP PRN 01/30/18 Timolol Maleate [Timoptic 0.5% Oph Soln 5 ml] 1 drop OU BID 01/30/18 Allergies/Adverse Reactions: No Known Allergies Allergy (Verified 05/19/15 09:19) Review of Systems Constitutional: PRESENT: as per HPI Eyes: PRESENT: visual disturbances - Blindness right eye; partial blindness left eye Ears: ABSENT: hearing changes Cardiovascular: ABSENT: chest pain, dyspnea on exertion, edema, orthropnea, palpitations Respiratory: PRESENT: as per HPI Gastrointestinal: PRESENT: other - Difficulty having bowel movements the last week Genitourinary: ABSENT: dysuria, hematuria Musculoskeletal: ABSENT: joint swelling Physical Exam Vital Signs: Temp Pulse Resp BP Pulse Ox 98.8 F 73 18 127/69 H 95 02/02/18 16:00 02/02/18 16:00 02/02/18 16:00 02/02/18 16:00 02/02/18 16:00 Intake & Output 02/01/18 02/02/18 02/03/18 06:59 06:59 06:59 Intake Total 1023 3144 706 Output Total 925 500 300 Balance 98 2644 406 Weight 96.4 kg 95.5 kg General appearance: PRESENT: no acute distress Head exam: PRESENT: normocephalic Eye exam: PRESENT: other - Opacities both eyes right greater than left Teeth exam: PRESENT: poor dentation Neck exam: PRESENT: full ROM Respiratory exam: PRESENT: clear to auscultation chadwick Cardiovascular exam: PRESENT: RRR Pulses: PRESENT: normal carotid pulses, normal radial pulses, normal femoral pulses, normal dorsalis pedis pul Vascular exam: PRESENT: normal capillary refill GI/Abdominal exam: PRESENT: other - Slightly distended, tympanitic; guarding right lower quadrant; no rigidity; no scars; no hernias Rectal exam: PRESENT: deferred Extremities exam: PRESENT: full ROM Neurological exam: PRESENT: alert, awake, oriented to person, oriented to place Psychiatric exam: PRESENT: appropriate affect Results Laboratory Results: 02/02/18 04:30 02/02/18 04:30 02/02/18 02/02/18 04:30 04:30 WBC 10.3 RBC 3.75 L Hgb 12.0 L Hct 34.8 L MCV 93 MCH 32.1 MCHC 34.6 RDW 14.4 H Plt Count 180 Sodium 135.3 L Potassium 3.6 Chloride 106 Carbon Dioxide 22 Anion Gap 7 BUN 6 L Creatinine 0.99 Est GFR ( Amer) > 60 Est GFR (Non-Af Amer) > 60 Glucose 101 Calcium 7.6 L Impressions: Abdomen/Pelvis CT 02/02/18 00:00 IMPRESSION: Findings worrisome for perforated appendicitis with 3 cm abscess at the appendiceal tip. There is inflammation of the cecum with inflammation in the mesenteric fat along the right iliopsoas region. Assessment & Plan - Diagnosis (1) Acute perforated appendicitis Is this a current diagnosis for this admission?: Yes Plan: Impression: Acute appendicitis in retrospect: Patient clinically improved over several day period with intravenous antibiotics however remains tender right lower quadrant. Given the CT scan findings today, intervention in addition to intravenous antibiotics recommended; options including percutaneous drainage, with subsequent interval appendectomy versus early appendectomy, laparoscopic versus open discussed with patient, and family. Patient is not in any extremis and does not require an operation this evening. Recommendations: 1. Keep patient n.p.o. after midnight 2. Permit team to discuss management options in the morning in conjunction with radiology; additionally the patient would like consider the options discussed this evening and weigh in on the final decision. I have discussed the above with Dr. Cash, patient's primary care physician. 3. We will plan to perform an intervention tomorrow with a high probability of laparoscopic, possible open appendectomy as I believe this would be the safest, most direct, definitive management for this patient. Will check an EKG and a chest x-ray; his Xarelto has been held. (3) Hypertension Qualifiers: Hypertension type: essential hypertension Qualified Code(s): I10 - Essential (primary) hypertension Is this a current diagnosis for this admission?: Yes (4) Neuralgia, post-herpetic Is this a current diagnosis for this admission?: Yes (5) Pulmonary embolism Qualifiers: Pulmonary embolism type: other Chronicity: chronic Acute cor pulmonale presence: without acute cor pulmonale Qualified Code(s): I27.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 Is this a current diagnosis for this admission?: Yes - Time Time Spent: 50 to 70 Minutes Smoking Cessation Education: over 10 minutes Medications reviewed and adjusted accordingly: Yes Anticipated discharge: Home - Inpatient Certification Based on my medical assessment, after consideration of the patient's comorbidities, presenting symptoms, or acuity I expect that the services needed warrant INPATIENT care.: Yes I certify that my determination is in accordance with my understanding of Medicare's requirements for reasonable and necessary INPATIENT services [42 CFR 412.3e].: Yes Medical Necessity: Need For IV Fluids, Need for Pain Control, Need for IV Antibiotics, Need for Surgery
--- NOTE | 2018-02-02 21:58 | EKG REPORT ---
SEVERITY:- ABNORMAL ECG - SINUS RHYTHM PROBABLE LEFT ATRIAL ABNORMALITY PROBABLE INFERIOR INFARCT, AGE INDETERMINATE BORDERLINE R WAVE PROGRESSION, ANTERIOR LEADS : Confirmed by: Keri Dixon MD 02-Feb-2018 21:57:25
--- NOTE | 2018-02-02 22:48 | RADIOLOGY REPORT (SQ) ---
EXAM DESCRIPTION: XR CHEST 1 VIEW COMPLETED DATE/TME: 02/02/2018 20:47 CLINICAL HISTORY: 77 years Male, Preop screening COMPARISON: 1.17.17 NUMBER OF VIEWS/TECHNIQUE: 1/AP FINDINGS: Adequate lung volume, clear parenchyma, normal cardiac silhouette, and intact bony thorax. IMPRESSION: No acute cardiopulmonary findings.
[2018-02-03] MEDS: METRONIDAZOLE 500 MG/NS RTU 500 MG/100 ML RTUPB IV SCH ×3 (02:24→17:56)
[2018-02-03 05:02] LABS: ABSOLUTE EOSINOPHILS # (AUTO) 0.1 10^3/uL (0.0-0.6); ABSOLUTE LYMPHOCYTES (AUTO) 1.4 10^3/uL (0.5-4.7); ABSOLUTE MONOCYTES (AUTO) 1.4 10^3/uL (0.1-1.4); BASOPHILS % (AUTO) 0.4 % (0-2); EOSINOPHILS % (AUTO) 1.7 % (0-6); HEMATOCRIT 35.6 % (37.9-51.0); HEMOGLOBIN 12.2 g/dL (13.5-17.0); LYMPHOCYTES % (AUTO) 17.9 % (13-45); MEAN CORPUSCULAR HEMOGLOBIN 31.9 pg (27.0-33.4); MEAN CORPUSCULAR HGB CONC 34.2 g/dL (32.0-36.0); MEAN CORPUSCULAR VOLUME 94 fl (80-97); MONOCYTES % (AUTO) 17.8 % (3-13); PLATELET COUNT 188 10^3/uL (150-450); RED BLOOD COUNT 3.81 10^6/uL (4.35-5.55); RED CELL DISTRIBUTION WIDTH 14.2 % (11.5-14.0); SEGMENTED NEUTROPHILS % (AUTO) 62.2 % (42-78); TOTAL CELLS COUNTED % (AUTO) 100 %
[2018-02-03 05:23] LABS: ANION GAP 7 (5-19); BLOOD UREA NITROGEN 7 mg/dL (7-20); CALCIUM 7.8 mg/dL (8.4-10.2); CARBON DIOXIDE 23 mmol/L (22-30); CHLORIDE 106 mmol/L (98-107); GLUCOSE 103 mg/dL (75-110); POTASSIUM 3.5 mmol/L (3.6-5.0); SODIUM 135.8 mmol/L (137-145)
[2018-02-03] MEDS: CIPROFLOXACIN 400 MG/D5W RTU 400 MG/200 ML RTUPB IV SCH ×2 (06:08→22:50)
[2018-02-03] MEDS ORDERED: ROCURONIUM BROMIDE INJ 50 MG/5 ML VIAL IV ONE (07:48)
[2018-02-03] MEDS ORDERED: SUCCINYLCHOLINE CHLORIDE INJ 200 MG/10 ML VIAL ONE (07:48)
--- NOTE | 2018-02-03 08:38 | PDOC PROGRESS REPORT ---
Subjective Progress Note for:: 02/03/18 Subjective:: Patient had a repeat CT scan done yesterday suggest the patient have some appendicitis with perforation and possible abscess in the discussed with the surgery patient's currently keep her n.p.o. possible going for the surgical evaluations today Patient's currently denied any chest pain denied any shortness of the breath Patient's feeling better Since denied any fever overnight Patients otherwise doing well Reason For Visit: ABD PAIN Physical Exam Vital Signs: Temp Pulse Resp BP Pulse Ox 98.6 F 81 22 H 139/72 H 99 02/03/18 00:15 02/03/18 00:15 02/03/18 00:15 02/03/18 00:15 02/03/18 00:15 Intake & Output 02/02/18 02/03/18 02/04/18 06:59 06:59 06:59 Intake Total 3144 806 Output Total 500 300 Balance 2644 506 Weight 95.5 kg General appearance: PRESENT: no acute distress, well-developed, well-nourished Head exam: PRESENT: atraumatic, normocephalic Eye exam: PRESENT: conjunctiva pink, EOMI, PERRLA. ABSENT: scleral icterus Ear exam: PRESENT: normal external ear exam Mouth exam: PRESENT: moist, tongue midline Neck exam: PRESENT: full ROM. ABSENT: carotid bruit, JVD, lymphadenopathy, thyromegaly Respiratory exam: PRESENT: clear to auscultation chadwick Cardiovascular exam: PRESENT: RRR. ABSENT: diastolic murmur, rubs, systolic murmur Pulses: PRESENT: normal dorsalis pedis pul, +2 pedal pulses bilateral Vascular exam: PRESENT: normal capillary refill GI/Abdominal exam: PRESENT: normal bowel sounds, soft, tenderness. ABSENT: distended, guarding, mass, organolmegaly, rebound Additonal comments: Tenderness is present on the right lower quadrant Rectal exam: PRESENT: deferred Extremities exam: ABSENT: pedal edema Musculoskeletal exam: PRESENT: ambulatory Neurological exam: PRESENT: alert, awake, oriented to person, oriented to place , oriented to time, oriented to situation, CN II-XII grossly intact. ABSENT: motor sensory deficit Psychiatric exam: PRESENT: appropriate affect, normal mood. ABSENT: homicidal ideation, suicidal ideation Skin exam: PRESENT: dry, intact, warm. ABSENT: cyanosis, rash Results Laboratory Results: 02/03/18 04:29 02/03/18 04:29 02/03/18 02/03/18 04:29 04:29 WBC 8.0 RBC 3.81 L Hgb 12.2 L Hct 35.6 L MCV 94 MCH 31.9 MCHC 34.2 RDW 14.2 H Plt Count 188 Seg Neutrophils % 62.2 Lymphocytes % 17.9 Monocytes % 17.8 H Eosinophils % 1.7 Basophils % 0.4 Absolute Neutrophils 5.0 Absolute Lymphocytes 1.4 Absolute Monocytes 1.4 Absolute Eosinophils 0.1 Absolute Basophils 0.0 Sodium 135.8 L Potassium 3.5 L Chloride 106 Carbon Dioxide 23 Anion Gap 7 BUN 7 Creatinine 0.90 Est GFR ( Amer) > 60 Est GFR (Non-Af Amer) > 60 Glucose 103 Calcium 7.8 L Impressions: Abdomen/Pelvis CT 02/02/18 00:00 IMPRESSION: Findings worrisome for perforated appendicitis with 3 cm abscess at the appendiceal tip. There is inflammation of the cecum with inflammation in the mesenteric fat along the right iliopsoas region. Chest X-Ray 02/02/18 20:47 IMPRESSION: No acute cardiopulmonary findings. Assessment & Plan - Diagnosis (1) Diverticulitis large intestine w/o perforation or abscess w/o bleeding Is this a current diagnosis for this admission?: Yes Plan: Patient is currently doing well will continue Cipro and Flagyl (2) Hypertension Qualifiers: Hypertension type: essential hypertension Qualified Code(s): I10 - Essential (primary) hypertension Is this a current diagnosis for this admission?: Yes Plan: Continues to current medications (3) Pulmonary embolism Qualifiers: Pulmonary embolism type: other Chronicity: chronic Acute cor pulmonale presence: without acute cor pulmonale Qualified Code(s): I27.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 Is this a current diagnosis for this admission?: Yes Plan: After the surgery we restart the Lovenox for the next 48 hours on discharge restart the Xarelto per surgery if it is okay (4) Neuralgia, post-herpetic Is this a current diagnosis for this admission?: Yes Plan: Continues to gabapentin (5) Acute perforated appendicitis Is this a current diagnosis for this admission?: Yes Plan: Follow with the surgery - Time Time Spent with patient: 15-24 minutes Medications reviewed and adjusted accordingly: Yes Anticipated discharge: Home Within: Other - Inpatient Certification Based on my medical assessment, after consideration of the patient's comorbidities, presenting symptoms, or acuity I expect that the services needed warrant INPATIENT care.: Yes I certify that my determination is in accordance with my understanding of Medicare's requirements for reasonable and necessary INPATIENT services [42 CFR 412.3e].: Yes Medical Necessity: Need For IV Fluids, Need for IV Antibiotics, Need for Surgery 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
--- NOTE | 2018-02-03 08:44 | PDOC PROGRESS REPORT ---
Subjective Progress Note for:: 02/03/18 Subjective:: RLQ pain Reason For Visit: ABD PAIN Physical Exam Vital Signs: Temp Pulse Resp BP Pulse Ox 98.6 F 81 22 H 139/72 H 99 02/03/18 00:15 02/03/18 00:15 02/03/18 00:15 02/03/18 00:15 02/03/18 00:15 Intake & Output 02/02/18 02/03/18 02/04/18 06:59 06:59 06:59 Intake Total 3144 806 Output Total 500 300 Balance 2644 506 Weight 95.5 kg General appearance: PRESENT: mild distress GI/Abdominal exam: PRESENT: soft, tenderness - RLQ tenderness with grimacing Results Laboratory Results: 02/03/18 04:29 02/03/18 04:29 02/03/18 02/03/18 04:29 04:29 WBC 8.0 RBC 3.81 L Hgb 12.2 L Hct 35.6 L MCV 94 MCH 31.9 MCHC 34.2 RDW 14.2 H Plt Count 188 Seg Neutrophils % 62.2 Lymphocytes % 17.9 Monocytes % 17.8 H Eosinophils % 1.7 Basophils % 0.4 Absolute Neutrophils 5.0 Absolute Lymphocytes 1.4 Absolute Monocytes 1.4 Absolute Eosinophils 0.1 Absolute Basophils 0.0 Sodium 135.8 L Potassium 3.5 L Chloride 106 Carbon Dioxide 23 Anion Gap 7 BUN 7 Creatinine 0.90 Est GFR ( Amer) > 60 Est GFR (Non-Af Amer) > 60 Glucose 103 Calcium 7.8 L Impressions: Abdomen/Pelvis CT 02/02/18 00:00 IMPRESSION: Findings worrisome for perforated appendicitis with 3 cm abscess at the appendiceal tip. There is inflammation of the cecum with inflammation in the mesenteric fat along the right iliopsoas region. Chest X-Ray 02/02/18 20:47 IMPRESSION: No acute cardiopulmonary findings. Assessment & Plan - Diagnosis (1) Acute perforated appendicitis Is this a current diagnosis for this admission?: Yes - Plan Summary Plan Summary: A/ Perforated appendicitis VSS, AF WBC normal K 3.5 RLQ pain on PE P/ NPO continue IVF Replace K Plan laparoscopic appendectomy, possible open Procedure, risks, benefits, complications explained to patient and family, they understand all the above, their questions were answered and they decided to proceed
[2018-02-03] MEDS ORDERED: RIVAROXABAN 10 MG TABLET PO SCH (10:00)
[2018-02-03] MEDS: AMLODIPINE BESYLATE 5 MG TABLET PO SCH (10:38)
[2018-02-03] MEDS: POTASSI CL 20 MEQ/50 ML RIDER 20 MEQ/50 ML RTUPB IV SCH ×2 (10:39→19:04)
[2018-02-03] MEDS: FAMOTIDINE INJ/PF 20 MG/2 ML SDV IV SCH ×2 (10:39→22:50)
[2018-02-03] MEDS: TIMOLOL MALEATE 0.5% OPH SOLN 5 ML OU SCH (10:45)
[2018-02-03] MEDS ORDERED: BUPIVACAINE HCL 0.5%-EPI 1:200000 INJ/PF 30 ML VIAL ONE (12:05)
[2018-02-03] MEDS ORDERED: PROPOFOL INJ 200 MG/20 ML VIAL IV ONE (12:31)
[2018-02-03] MEDS ORDERED: FENTANYL CITRATE INJ/PF 100 MCG/2 ML AMPUL ONE (12:31)
[2018-02-03] MEDS ORDERED: LIDOCAINE 2% INJ-PF (100 MG/5 ML) SYRINGE ONE (12:31)
[2018-02-03] MEDS ORDERED: MIDAZOLAM 2 MG/2 ML INJ ONE (12:31)
[2018-02-03] MEDS ORDERED: EPHEDRINE SULFATE INJ 50 MG/1 ML AMPULE ONE (13:16)
[2018-02-03] MEDS ORDERED: HYDROMORPHONE HCL INJ/PF 2 MG/ML AMPULE ONE (14:05)
[2018-02-03] MEDS ORDERED: SUGAMMADEX SODIUM 200 MG/2 ML SDV IV ONE (14:49)
[2018-02-03] MEDS ORDERED: FENTANYL CITRATE INJ/PF 100 MCG/2 ML AMPUL IV PRN ×3 (14:58)
[2018-02-03] MEDS ORDERED: PROMETHAZINE HCL INJ 25 MG/1 ML VIAL IV PRN (14:58)
[2018-02-03] MEDS ORDERED: DIPHENHYDRAMINE HCL 50 MG/ML VIAL IV PRN (14:58)
[2018-02-03] MEDS ORDERED: ACETAMINOPHEN 1,000 MG/100 ML RTUPB IV ONE (15:42)
--- NOTE | 2018-02-03 15:49 | Operative Report ---
Nonrecallable Operative Report DATE OF SURGERY: 02/03/18 PREOPERATIVE DIAGNOSIS: ruptured appendicitis. 3.0 cm periappendiceal abscess POSTOPERATIVE DIAGNOSIS: same OPERATION: exploratoiry laparoscopy. exploratory laparotomy. open appendectomy SURGEON: AARON FLORES ANESTHESIA: GA - plus 30 mL 0.5% lidocaine plus epinephrine TISSUE REMOVED OR ALTERED: appendix COMPLICATIONS: none INTRAOPERATIVE FINDINGS: severely distended loops of terminal ileum, cecum. right colon, and sigmoid colon. inflammatory changes between right colon/cecum and right lateral peritoneum. purulent drainage between right colon, base of the appendix, and lateral peritoneum. necrotic distal half of the appendix PROCEDURE: see dictation
[2018-02-03] MEDS: FENTANYL CITRATE INJ/PF 100 MCG/2 ML AMPUL ONE ×2 (15:56→16:01)
[2018-02-03] MEDS ORDERED: NORMAL SALINE 1000 ML 1,000 ML IV PRN (16:06)
[2018-02-03] MEDS: HYDROMORPHONE HCL INJ/PF 2 MG/ML AMPULE ONE ×3 (16:13→16:33)
[2018-02-03] MEDS ORDERED: NORMAL SALINE 1000 ML 1,000 ML IV ONE (17:45)
[2018-02-03] MEDS ORDERED: POTASSI CL 20 MEQ/50 ML RIDER 20 MEQ/50 ML RTUPB IV ONE (18:55)
[2018-02-03] MEDS: MORPHINE SULFATE 10 MG/ML INJ IV PRN (20:54)
--- NOTE | 2018-02-03 23:10 | OPERATIVE REPORT E ---
Operative Report NAME: EMELI DAMON : 1940 AGE: 77Y DATE OF SURGERY: 02/03/2018 ROOM: 533 PREOPERATIVE DIAGNOSIS: RUPTURED APPENDICITIS WITH PERIAPPENDICEAL ABSCESS. POSTOPERATIVE DIAGNOSIS: RUPTURED APPENDICITIS WITH APPENDICEAL ABSCESS. OPERATION: 1. Attempted laparoscopic appendectomy. 2. Exploratory laparotomy. 3. Open appendectomy. SURGEON: AARON FLORES M.D. SILICA DRY PRESS HELPER: None. ESTIMATED BLOOD LOSS: Less than 30 mL. COMPLICATIONS: None. ANESTHESIA: General plus 20 mL of 0.5% lidocaine with epinephrine. FLUIDS: 1700 mL of crystalloid. URINE OUTPUT: 175 mL. DRAINS: One 15-Thai round Manuel drain. INDICATION AND FINDINGS: This is a 77-year-old male who presented to the hospital a few days ago complaining of abdominal pain and intense nausea. A CAT scan was done revealing inflammatory change in right lower quadrant. The patient was admitted for pain control and his diet was slowly advanced to regular. Yesterday, the patient went for a repeat CT scan of the abdomen and pelvis because of persistent abdominal pain. The CT scan demonstrated a ruptured appendicitis with a periappendiceal abscess about 3 cm. in diameter. Therefore, following surgical consultation a decision was made to take the patient to surgery today to undergo a laparoscopic appendectomy possibly open. Procedure, risks, benefits, complications including possibility of injury to bowel and/or undergoing exploratory laparotomy to remove the appendix were explained to the patient. He understood all the above and decided to proceed. PROCEDURE: The procedure was done in the operating room. Patient was placed in supine position. General anesthesia induced by endotracheal intubation. A Owen catheter was inserted. Abdomen shaved, prepped and draped in the usual sterile fashion. Incision was made just above the umbilicus. The skin was tented with towel clips. A 5-mm port with Optiview adapter and 30-degree scope was inserted through the abdominal wall into the peritoneal cavity and CO2 pneumoperitoneum was established. Under direct visualization, a 5-mm port was inserted in the right lower quadrant of the abdomen and left lower quadrant of the abdomen. The patient was placed in a Trendelenburg position with the right side elevated. A large amount of inflammatory changes were noted in the right lateral quadrant of the abdomen with fluid present in the peritoneal cavity as well. Using 2 peanut dissectors the right colon was identified and was from the right anterolateral peritoneum and a moderate amount of pus was obtained. This was aspirated and sent for aerobic, anaerobic culture and Gram stain. After this, continued dissection of the right colon revealed additional inflammatory changes at the level of the cecum and positive identification of the base of appendix. However, the severe inflammation of the colon and appendix precluded safe dissection of the appendix; in addition, rupture of the appendix during dissection had become a concern. Because of these coinsideration, the procedure was aborted. The patient was returned in a supine position and a midline incision was made from just below the umbilicus down to the symphysis pubis. The peritoneal cavity was entered without difficulty. A small amount of purulent fluid was then aspirated. A Argyle retractor was then applied and the small bowel was packed in the left upper quadrant. The hand was inserted in right lower quadrant of the abdomen and the cecum was prepared together with the appendix. This was gently pulled and from the sigmoid colon and it was found that the distal half of the appendix was necrotic and perforated. The proximal half appeared to be within normal limits. The appendix was then stretched, stapled at the base with a 45-mm long ROBERTO stapler with blue load, and after the mesoappendix was divided in between hemostats, the specimen was removed from the surgical field. A 2-0 suture tie was placed around the stump of the mesoappendix and the appendiceal artery and an additional 3-0 silk [id number] suture was placed through the stump of the appendix. This was found to be longer than expected and divided again just up to the cecum and removed from the surgical field. An additional free-hand 3-0 silk tie was placed around the base of the appendix and the mucosa of the appendix was cauterized. The cecum was then replaced inside the peritoneal cavity. However, after this part of the procedure, the nurse inspector metal fabricating reported that the urine appeared to be slightly tinted with blood. Close examination of the retroperitoneum and cecum revealed the retroperitoneal was not entered and that the cecum was not elevated from the retroperitoneum as well. At this point, the retroperitoneal cavity was irrigated with a total of 3 liters of warm normal saline until clear. All the packs were removed. A small bowel rubber protector sheath was placed. The abdominal wall was closed with #1 looped PDS suture in a running fashion. Before tying the suture, the small bowel rubber protector was removed. The suture was then tied. The subcutaneous fat was then irrigated with normal saline and dried. The two 5-mm port skin incisions were then closed with 4-0 subcuticular suture with Dermabond Steri-Strips applied. A piece of WoundVac wadsworth foam was placed on the open wound, cutto length, and secured in place with Tegaderm. Prior to closure of abdominal wall, one 15-Thai round Manuel drain was placed in right lower quadrant in the pelvis through the skin, secured with a 2-0 nylon suture, and connected to bulb suction. An opening was made in the middle portion of WoundVac Tegaderm, a suction cap was then attached on top of it, and connected to the wound VAC machine with a 125 mmHg negative pressure. Good vacuum was identified. The patient was then extubated and transferred to recovery room in satisfactory condition. DICTATING PHYSICIAN: AARON FLORES M.D. [id number] PHY#: [id number] ID: [id number] JOB#: [id number] ACCT: [id number] cc:AARON FLORES M.D. > MTDD
[2018-02-04] MEDS: METRONIDAZOLE 500 MG/NS RTU 500 MG/100 ML RTUPB IV SCH ×5 (00:09→21:50)
[2018-02-04] MEDS: MORPHINE SULFATE 10 MG/ML INJ IV PRN ×6 (00:55→23:21)
[2018-02-04 04:39] LABS: MEAN CORPUSCULAR HEMOGLOBIN 31.6 pg (27.0-33.4); MEAN CORPUSCULAR HGB CONC 34.3 g/dL (32.0-36.0); MEAN CORPUSCULAR VOLUME 92 fl (80-97); PLATELET COUNT 254 10^3/uL (150-450); RED BLOOD COUNT 4.12 10^6/uL (4.35-5.55); RED CELL DISTRIBUTION WIDTH 14.5 % (11.5-14.0); WHITE BLOOD COUNT 8.8 10^3/uL (4.0-10.5)
[2018-02-04] MEDS: TIMOLOL MALEATE 0.5% OPH SOLN 5 ML OU SCH ×3 (04:51→17:29)
[2018-02-04 05:01] LABS: ANION GAP 6 (5-19); BLOOD UREA NITROGEN 7 mg/dL (7-20); CALCIUM 7.7 mg/dL (8.4-10.2); CARBON DIOXIDE 23 mmol/L (22-30); CHLORIDE 107 mmol/L (98-107); GLUCOSE 123 mg/dL (75-110); POTASSIUM 3.9 mmol/L (3.6-5.0); SODIUM 136.4 mmol/L (137-145)
[2018-02-04] MEDS: CIPROFLOXACIN 400 MG/D5W RTU 400 MG/200 ML RTUPB IV SCH ×2 (06:37→17:27)
--- NOTE | 2018-02-04 08:29 | PDOC PROGRESS REPORT ---
Subjective Progress Note for:: 02/04/18 Subjective:: c/o back pain Reason For Visit: ABD PAIN Physical Exam Vital Signs: Temp Pulse Resp BP Pulse Ox 98.8 F 83 18 115/73 100 02/04/18 08:00 02/04/18 08:00 02/04/18 08:00 02/04/18 08:00 02/04/18 08:00 Intake & Output 02/03/18 02/04/18 02/05/18 06:59 06:59 06:59 Intake Total 906 7938 Output Total 300 4540 Balance 606 3398 Weight 110.2 kg General appearance: PRESENT: no acute distress Respiratory exam: PRESENT: chest wall tenderness Cardiovascular exam: PRESENT: RRR GI/Abdominal exam: PRESENT: distended, soft, other - incision covered with Woundvac, no erythema or drainage, ROGER with clear fluid Results Laboratory Results: 02/04/18 04:06 02/04/18 04:06 02/04/18 02/04/18 04:06 04:06 WBC 8.8 RBC 4.12 L Hgb 13.0 L Hct 38.0 MCV 92 MCH 31.6 MCHC 34.3 RDW 14.5 H Plt Count 254 Sodium 136.4 L Potassium 3.9 Chloride 107 Carbon Dioxide 23 Anion Gap 6 BUN 7 Creatinine 0.83 Est GFR ( Amer) > 60 Est GFR (Non-Af Amer) > 60 Glucose 123 H Calcium 7.7 L 01/30/18 04:13 Blood Blood Culture - Final NO GROWTH IN 5 DAYS Impressions: Abdomen/Pelvis CT 02/02/18 00:00 IMPRESSION: Findings worrisome for perforated appendicitis with 3 cm abscess at the appendiceal tip. There is inflammation of the cecum with inflammation in the mesenteric fat along the right iliopsoas region. Chest X-Ray 02/02/18 20:47 IMPRESSION: No acute cardiopulmonary findings. Assessment & Plan - Diagnosis (1) Acute perforated appendicitis Is this a current diagnosis for this admission?: Yes - Plan Summary Plan Summary: A/ POD #1 after laparotomy, open appendectomy for perforated appendicitis VSS, AF moderate ROGER output Good UO Blood work WNL PE demonstrates postop ileus P/ Continues NPO except for ice chips IVF IV Abx waiting for intraperitoneal cx results OOB up in chair keep Owen
--- NOTE | 2018-02-04 09:29 | PDOC PROGRESS REPORT ---
Subjective Progress Note for:: 02/04/18 Subjective:: Patient underwent for the laparotomy in the remote the appendix and drain the abscess postop day #1 Patient is complaining from abdominal bloating most likely due to the postop ileus but the pain is under control Owen catheter urine output is appropriate No fever Chills No chest pain no short of breath This with the on the bedside Reason For Visit: ABD PAIN Physical Exam Vital Signs: Temp Pulse Resp BP Pulse Ox 98.8 F 83 18 115/73 100 02/04/18 08:00 02/04/18 08:00 02/04/18 08:00 02/04/18 08:00 02/04/18 08:00 Intake & Output 02/03/18 02/04/18 02/05/18 06:59 06:59 06:59 Intake Total 906 7938 Output Total 300 4540 Balance 606 3398 Weight 110.2 kg General appearance: PRESENT: no acute distress, well-developed, well-nourished Head exam: PRESENT: atraumatic, normocephalic Eye exam: PRESENT: conjunctiva pink, EOMI, PERRLA. ABSENT: scleral icterus Ear exam: PRESENT: normal external ear exam Mouth exam: PRESENT: moist, tongue midline Neck exam: PRESENT: full ROM. ABSENT: carotid bruit, JVD, lymphadenopathy, thyromegaly Respiratory exam: PRESENT: clear to auscultation [place]wick Cardiovascular exam: PRESENT: RRR. ABSENT: diastolic murmur, rubs, systolic murmur Pulses: PRESENT: normal dorsalis pedis pul, +2 pedal pulses bilateral Vascular exam: PRESENT: normal capillary refill GI/Abdominal exam: ABSENT: distended, guarding, mass, organolmegaly, rebound, tenderness Additonal comments: Surgical scar and the wound VAC is present bowel sounds very hypoactive Rectal exam: PRESENT: deferred Neurological exam: PRESENT: alert, awake, oriented to person, oriented to place , oriented to time, oriented to situation, CN II-XII grossly intact. ABSENT: motor sensory deficit Psychiatric exam: PRESENT: appropriate affect, normal mood. ABSENT: homicidal ideation, suicidal ideation Skin exam: PRESENT: dry, intact, warm. ABSENT: cyanosis, rash Results Laboratory Results: 02/04/18 04:06 02/04/18 04:06 02/04/18 02/04/18 04:06 04:06 WBC 8.8 RBC 4.12 L Hgb 13.0 L Hct 38.0 MCV 92 MCH 31.6 MCHC 34.3 RDW 14.5 H Plt Count 254 Sodium 136.4 L Potassium 3.9 Chloride 107 Carbon Dioxide 23 Anion Gap 6 BUN 7 Creatinine 0.83 Est GFR ( Amer) > 60 Est GFR (Non-Af Amer) > 60 Glucose 123 H Calcium 7.7 L 01/30/18 04:13 Blood Blood Culture - Final NO GROWTH IN 5 DAYS Impressions: Abdomen/Pelvis CT 02/02/18 00:00 IMPRESSION: Findings worrisome for perforated appendicitis with 3 cm abscess at the appendiceal tip. There is inflammation of the cecum with inflammation in the mesenteric fat along the right iliopsoas region. Chest X-Ray 02/02/18 20:47 IMPRESSION: No acute cardiopulmonary findings. Assessment & Plan - Diagnosis (1) Diverticulitis large intestine w/o perforation or abscess w/o bleeding Is this a current diagnosis for this admission?: Yes Plan: Patient is currently doing well will continue Cipro and Flagyl (2) Hypertension Qualifiers: Hypertension type: essential hypertension Qualified Code(s): I10 - Essential (primary) hypertension Is this a current diagnosis for this admission?: Yes Plan: Continues to current medications (3) Pulmonary embolism Qualifiers: Pulmonary embolism type: other Chronicity: chronic Acute cor pulmonale presence: without acute cor pulmonale Qualified Code(s): I27.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 Is this a current diagnosis for this admission?: Yes Plan: Currently in the Lovenox subcu for DVT prophylaxis 1 surgery okay we increase the Lovenox twice a day and may be a restart the Xarelto on discharge is okay with the surgery (4) Neuralgia, post-herpetic Is this a current diagnosis for this admission?: Yes Plan: Continues to gabapentin (5) Acute perforated appendicitis Is this a current diagnosis for this admission?: Yes Plan: Status post laparotomy postop day #1 - Time Time Spent with patient: 15-24 minutes Medications reviewed and adjusted accordingly: Yes Anticipated discharge: Home Within: Other - Inpatient Certification Based on my medical assessment, after consideration of the patient's comorbidities, presenting symptoms, or acuity I expect that the services needed warrant INPATIENT care.: Yes I certify that my determination is in accordance with my understanding of Medicare's requirements for reasonable and necessary INPATIENT services [42 CFR 412.3e].: Yes Medical Necessity: Need For IV Fluids, Need for IV Antibiotics Post Hospital Care: D/C Audio Visual Secretary Documentation - Plan Summary Plan Summary: Continues to IV fluid and continuous IV antibiotic will wait for the wound culture and follow with the surgery
[2018-02-04] MEDS: FAMOTIDINE INJ/PF 20 MG/2 ML SDV IV SCH ×2 (10:44→21:51)
[2018-02-04] MEDS: AMLODIPINE BESYLATE 5 MG TABLET PO SCH (10:44)
[2018-02-04] MEDS: NORMAL SALINE 1000 ML 1,000 ML IV PRN (10:53)
[2018-02-04 14:03] LABS: APPEARANCE,URINE CLEAR; BILIRUBIN,URINE NEGATIVE (NEGATIVE); COLOR,URINE AMBER; GLUCOSE, URINE NEGATIVE (NEGATIVE); KETONES,URINE TRACE mg/dL (NEGATIVE); LEUKOCYTE ESTERASE,URINE SMALL (NEGATIVE); NITRITE,URINE NEGATIVE (NEGATIVE); PROTEIN,URINE 30 mg/dL (NEGATIVE); URINE SPECIFIC GRAVITY 1.025
[2018-02-04] MEDS: ONDANSETRON HCL INJ/PF 4 MG/2 ML SDV IV PRN (14:27)
[2018-02-04] MEDS: ACETAMINOPHEN 325 MG TABLET PO PRN (17:27)
[2018-02-05] MEDS: METRONIDAZOLE 500 MG/NS RTU 500 MG/100 ML RTUPB IV SCH ×4 (02:45→21:20)
[2018-02-05] MEDS: MORPHINE SULFATE 10 MG/ML INJ IV PRN ×4 (02:53→20:18)
[2018-02-05 04:47] LABS: HEMATOCRIT 34.4 % (37.9-51.0); HEMOGLOBIN 11.8 g/dL (13.5-17.0); MEAN CORPUSCULAR HEMOGLOBIN 31.5 pg (27.0-33.4); MEAN CORPUSCULAR HGB CONC 34.2 g/dL (32.0-36.0); MEAN CORPUSCULAR VOLUME 92 fl (80-97); PLATELET COUNT 268 10^3/uL (150-450); RED BLOOD COUNT 3.73 10^6/uL (4.35-5.55); RED CELL DISTRIBUTION WIDTH 14.2 % (11.5-14.0); WHITE BLOOD COUNT 11.1 10^3/uL (4.0-10.5)
[2018-02-05 05:04] LABS: ANION GAP 5 (5-19); BLOOD UREA NITROGEN 9 mg/dL (7-20); CALCIUM 7.7 mg/dL (8.4-10.2); CARBON DIOXIDE 25 mmol/L (22-30); CHLORIDE 107 mmol/L (98-107); GLUCOSE 111 mg/dL (75-110); POTASSIUM 3.9 mmol/L (3.6-5.0); SODIUM 136.5 mmol/L (137-145)
[2018-02-05 05:14] LABS: ABSOLUTE LYMPHOCYTES# (MANUAL) 1.3 10^3/uL (0.5-4.7); ABSOLUTE MONOCYTES # (MANUAL) 1.9 10^3/uL (0.1-1.4); ABSOLUTE NEUTROPHILS# (MANUAL) 7.9 10^3/uL (1.7-8.2); ANISOCYTOSIS SLIGHT; BASOPHILS % (MANUAL) 0 % (0-2); EOSINOPHILS % (MANUAL) 0 % (0-6); LYMPHOCYTES % (MANUAL) 12 % (13-45); MONOCYTES % (MANUAL) 17 % (3-13); PLATELET COMMENT ADEQUATE; SCHISTOCYTES SLIGHT; SEGMENTED NEUTROPHILS % (MAN) 71 % (42-78); TOTAL CELLS COUNTED 100; TOXIC GRANULATION 1+
[2018-02-05] MEDS: CIPROFLOXACIN 400 MG/D5W RTU 400 MG/200 ML RTUPB IV SCH ×2 (05:22→17:22)
[2018-02-05] MEDS: ENOXAPARIN SODIUM INJ 40 MG/0.4 ML DISP.SYRIN SUBCUT SCH (05:22)
[2018-02-05] MEDS: NORMAL SALINE 1000 ML 1,000 ML IV PRN (05:31)
--- NOTE | 2018-02-05 08:53 | PDOC PROGRESS REPORT ---
Subjective Progress Note for:: 02/05/18 Subjective:: Patient is currently doing well except still abdomen is bloating Patient does not passing any gas Denied any chest pain denied any shortness of the breath Reason For Visit: ABD PAIN Physical Exam Vital Signs: Temp Pulse Resp BP Pulse Ox 98.4 F 43 L 16 111/64 98 02/05/18 07:52 02/05/18 07:52 02/05/18 07:52 02/05/18 07:52 02/05/18 07:52 Intake & Output 02/04/18 02/05/18 02/06/18 06:59 06:59 06:59 Intake Total 7938 2360 Output Total 4540 900 20 Balance 3398 1460 -20 Weight 110.2 kg 110.2 kg General appearance: PRESENT: no acute distress, well-developed, well-nourished Head exam: PRESENT: atraumatic, normocephalic Eye exam: PRESENT: conjunctiva pink, EOMI, PERRLA. ABSENT: scleral icterus Ear exam: PRESENT: normal external ear exam Mouth exam: PRESENT: moist, tongue midline Neck exam: PRESENT: full ROM. ABSENT: carotid bruit, JVD, lymphadenopathy, thyromegaly Respiratory exam: PRESENT: clear to auscultation chadwick Cardiovascular exam: PRESENT: RRR. ABSENT: diastolic murmur, rubs, systolic murmur Pulses: PRESENT: normal dorsalis pedis pul, +2 pedal pulses bilateral Vascular exam: PRESENT: normal capillary refill GI/Abdominal exam: PRESENT: distended, hypoactive bowel sounds, soft. ABSENT: guarding, mass, organolmegaly, rebound, tenderness Additonal comments: Dressing is intact and wound VAC is intact Rectal exam: PRESENT: deferred Extremities exam: ABSENT: pedal edema Neurological exam: PRESENT: alert, awake, oriented to person, oriented to place , oriented to time, oriented to situation, CN II-XII grossly intact. ABSENT: motor sensory deficit Psychiatric exam: PRESENT: appropriate affect, normal mood. ABSENT: homicidal ideation, suicidal ideation Skin exam: PRESENT: dry, intact, warm. ABSENT: cyanosis, rash Results Laboratory Results: 02/05/18 04:18 02/05/18 04:18 02/04/18 02/05/18 02/05/18 13:06 04:18 04:18 WBC 11.1 H RBC 3.73 L Hgb 11.8 L Hct 34.4 L MCV 92 MCH 31.5 MCHC 34.2 RDW 14.2 H Plt Count 268 Seg Neutrophils % Not Reportable Lymphocytes % Not Reportable Monocytes % Not Reportable Eosinophils % Not Reportable Basophils % Not Reportable Absolute Neutrophils Not Reportable Absolute Lymphocytes Not Reportable Absolute Monocytes Not Reportable Absolute Eosinophils Not Reportable Absolute Basophils Not Reportable Sodium 136.5 L Potassium 3.9 Chloride 107 Carbon Dioxide 25 Anion Gap 5 BUN 9 Creatinine 0.89 Est GFR ( Amer) > 60 Est GFR (Non-Af Amer) > 60 Glucose 111 H Calcium 7.7 L Urine Color ZACHARY Urine Appearance CLEAR Urine pH 5.0 Ur Specific [place] 1.025 Urine Protein 30 H Urine Glucose (UA) NEGATIVE Urine Ketones TRACE H Urine Blood SMALL H Urine Nitrite NEGATIVE Ur Leukocyte Esterase SMALL H Urine WBC (Auto) 4 Urine RBC (Auto) 71 Impressions: Abdomen/Pelvis CT 02/02/18 00:00 IMPRESSION: Findings worrisome for perforated appendicitis with 3 cm abscess at the appendiceal tip. There is inflammation of the cecum with inflammation in the mesenteric fat along the right iliopsoas region. Chest X-Ray 02/02/18 20:47 IMPRESSION: No acute cardiopulmonary findings. Assessment & Plan - Diagnosis (1) Diverticulitis large intestine w/o perforation or abscess w/o bleeding Is this a current diagnosis for this admission?: Yes (2) Hypertension Qualifiers: Hypertension type: essential hypertension Qualified Code(s): I10 - Essential (primary) hypertension Is this a current diagnosis for this admission?: Yes Plan: Continues to current medications (3) Pulmonary embolism Qualifiers: Pulmonary embolism type: other Chronicity: chronic Acute cor pulmonale presence: without acute cor pulmonale Qualified Code(s): I27.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 Is this a current diagnosis for this admission?: Yes Plan: Currently in the Lovenox subcu for DVT prophylaxis 1 surgery okay we increase the Lovenox twice a day and may be a restart the Xarelto on discharge is okay with the surgery (4) Neuralgia, post-herpetic Is this a current diagnosis for this admission?: Yes Plan: Continues to gabapentin (5) Acute perforated appendicitis Is this a current diagnosis for this admission?: Yes Plan: Status post laparotomy postop day #1 - Time Time Spent with patient: 15-24 minutes Medications reviewed and adjusted accordingly: Yes Anticipated discharge: Home Within: Other - Inpatient Certification Medical Necessity: Need Close Monitoring Due to Risk of Patient Decompensation, Need for IV Antibiotics Post Hospital Care: D/C Warp Picker Documentation - Plan Summary Plan Summary: Will change the antibiotic well patient still n.p.o. with D5 one half normal saline Continues to follow with the surgery Postop ileus Discussed with the patient and the in the bedside regarding the patient's current conditions Continues to physical therapy
[2018-02-05] MEDS: DEXTROSE 5%-1/2 NORMAL SALINE 1,000 ML IV PRN (09:34)
[2018-02-05] MEDS: AMLODIPINE BESYLATE 5 MG TABLET PO SCH (09:34)
[2018-02-05] MEDS: FAMOTIDINE INJ/PF 20 MG/2 ML SDV IV SCH ×2 (09:35→21:21)
--- NOTE | 2018-02-05 12:28 | PDOC PROGRESS REPORT ---
Subjective Progress Note for:: 02/05/18 Subjective:: Some pain but under fair control. No nausea or vomiting but not passing any gas. Reason For Visit: ABD PAIN Physical Exam Vital Signs: Temp Pulse Resp BP Pulse Ox 98.4 F 43 L 16 111/64 98 02/05/18 07:52 02/05/18 07:52 02/05/18 07:52 02/05/18 07:52 02/05/18 07:52 Intake & Output 02/04/18 02/05/18 02/06/18 06:59 06:59 06:59 Intake Total 7938 2360 100 Output Total 4540 900 20 Balance 3398 1460 80 Weight 110.2 kg 110.2 kg General appearance: PRESENT: no acute distress, cooperative Respiratory exam: PRESENT: clear to auscultation chadwick Cardiovascular exam: PRESENT: RRR GI/Abdominal exam: PRESENT: other - Soft but moderately distended with no bowel sounds. Very mild diffuse abdominal tenderness. Wound VAC in place. No surrounding erythema. Extremities exam: PRESENT: other - No swelling and no tenderness Results Laboratory Results: 02/05/18 04:18 02/05/18 04:18 02/04/18 02/05/18 02/05/18 13:06 04:18 04:18 WBC 11.1 H RBC 3.73 L Hgb 11.8 L Hct 34.4 L MCV 92 MCH 31.5 MCHC 34.2 RDW 14.2 H Plt Count 268 Seg Neutrophils % Not Reportable Lymphocytes % Not Reportable Monocytes % Not Reportable Eosinophils % Not Reportable Basophils % Not Reportable Absolute Neutrophils Not Reportable Absolute Lymphocytes Not Reportable Absolute Monocytes Not Reportable Absolute Eosinophils Not Reportable Absolute Basophils Not Reportable Sodium 136.5 L Potassium 3.9 Chloride 107 Carbon Dioxide 25 Anion Gap 5 BUN 9 Creatinine 0.89 Est GFR ( Amer) > 60 Est GFR (Non-Af Amer) > 60 Glucose 111 H Calcium 7.7 L Urine Color ZACHARY Urine Appearance CLEAR Urine pH 5.0 Ur Specific [place] 1.025 Urine Protein 30 H Urine Glucose (UA) NEGATIVE Urine Ketones TRACE H Urine Blood SMALL H Urine Nitrite NEGATIVE Ur Leukocyte Esterase SMALL H Urine WBC (Auto) 4 Urine RBC (Auto) 71 Impressions: Abdomen/Pelvis CT 02/02/18 00:00 IMPRESSION: Findings worrisome for perforated appendicitis with 3 cm abscess at the appendiceal tip. There is inflammation of the cecum with inflammation in the mesenteric fat along the right iliopsoas region. Chest X-Ray 02/02/18 20:47 IMPRESSION: No acute cardiopulmonary findings. Assessment & Plan - Diagnosis (1) Acute perforated appendicitis Is this a current diagnosis for this admission?: Yes Plan: Status post open appendectomy. Patient looks reasonably well but he has an ileus. No nausea or vomiting at this time. Will encourage ambulation. Await bowel function. Hold off NG tube for now.
[2018-02-05] MEDS: TIMOLOL MALEATE 0.5% OPH SOLN 5 ML OU SCH ×2 (14:37→17:23)
[2018-02-06] MEDS: MORPHINE SULFATE 10 MG/ML INJ IV PRN ×4 (00:56→13:41)
[2018-02-06] MEDS: METRONIDAZOLE 500 MG/NS RTU 500 MG/100 ML RTUPB IV SCH ×4 (03:07→20:13)
[2018-02-06] MEDS: DEXTROSE 5%-1/2 NORMAL SALINE 1,000 ML IV PRN (04:46)
[2018-02-06] MEDS: CIPROFLOXACIN 400 MG/D5W RTU 400 MG/200 ML RTUPB IV SCH ×2 (05:15→17:47)
[2018-02-06 07:30] LABS: HEMATOCRIT 33.9 % (37.9-51.0); HEMOGLOBIN 11.5 g/dL (13.5-17.0); MEAN CORPUSCULAR HEMOGLOBIN 31.7 pg (27.0-33.4); MEAN CORPUSCULAR VOLUME 93 fl (80-97); PLATELET COUNT 351 10^3/uL (150-450); RED BLOOD COUNT 3.63 10^6/uL (4.35-5.55); RED CELL DISTRIBUTION WIDTH 14.4 % (11.5-14.0); WHITE BLOOD COUNT 10.2 10^3/uL (4.0-10.5)
[2018-02-06 07:53] LABS: BLOOD UREA NITROGEN 9 mg/dL (7-20); CALCIUM 7.6 mg/dL (8.4-10.2); CARBON DIOXIDE 26 mmol/L (22-30); GLUCOSE 128 mg/dL (75-110); POTASSIUM 3.5 mmol/L (3.6-5.0)
[2018-02-06 07:58] LABS: ANION GAP 5 (5-19); CHLORIDE 104 mmol/L (98-107)
[2018-02-06] MEDS: AMLODIPINE BESYLATE 5 MG TABLET PO SCH (09:17)
[2018-02-06] MEDS: FAMOTIDINE INJ/PF 20 MG/2 ML SDV IV SCH ×2 (09:18→21:00)
[2018-02-06] MEDS: ENOXAPARIN SODIUM INJ 40 MG/0.4 ML DISP.SYRIN SUBCUT SCH (09:18)
[2018-02-06] MEDS: POTASSI CL 20 MEQ/D5-1/2NS 1L 1000 ML IV PRN (10:51)
--- NOTE | 2018-02-06 12:48 | PDOC PROGRESS REPORT ---
Subjective Progress Note for:: 02/06/18 Subjective:: Patient is currently doing fair Still complaining of bloating abdomen Patient still n.p.o. Denied any chest pain denied any shortness of the breath Reason For Visit: ABD PAIN Physical Exam Vital Signs: Temp Pulse Resp BP Pulse Ox 97.5 F 69 15 114/63 94 02/06/18 08:00 02/06/18 08:00 02/06/18 08:00 02/06/18 08:00 02/06/18 08:00 Intake & Output 02/05/18 02/06/18 02/07/18 06:59 06:59 06:59 Intake Total 2360 2306 Output Total 900 1090 Balance 1460 1216 Weight 110.2 kg 110.1 kg General appearance: PRESENT: no acute distress, well-developed, well-nourished Head exam: PRESENT: atraumatic, normocephalic Eye exam: PRESENT: conjunctiva pink, EOMI, PERRLA. ABSENT: scleral icterus Ear exam: PRESENT: normal external ear exam Mouth exam: PRESENT: moist, tongue midline Neck exam: PRESENT: full ROM. ABSENT: carotid bruit, JVD, lymphadenopathy, thyromegaly Respiratory exam: PRESENT: clear to auscultation chadwick Cardiovascular exam: PRESENT: RRR. ABSENT: diastolic murmur, rubs, systolic murmur Pulses: PRESENT: normal dorsalis pedis pul, +2 pedal pulses bilateral Vascular exam: PRESENT: normal capillary refill GI/Abdominal exam: PRESENT: distended, hypoactive bowel sounds, tenderness. ABSENT: guarding, mass, organolmegaly, rebound Rectal exam: PRESENT: deferred Neurological exam: PRESENT: alert, awake, oriented to person, oriented to place , oriented to time, oriented to situation, CN II-XII grossly intact. ABSENT: motor sensory deficit Psychiatric exam: PRESENT: appropriate affect, normal mood. ABSENT: homicidal ideation, suicidal ideation Skin exam: PRESENT: dry, intact, warm. ABSENT: cyanosis, rash Results Laboratory Results: 02/06/18 06:50 02/06/18 06:50 02/06/18 02/06/18 06:50 06:50 WBC 10.2 RBC 3.63 L Hgb 11.5 L Hct 33.9 L MCV 93 MCH 31.7 MCHC 34.0 RDW 14.4 H Plt Count 351 Sodium 135.0 L Potassium 3.5 L Chloride 104 Carbon Dioxide 26 Anion Gap 5 BUN 9 Creatinine 0.91 Est GFR ( Amer) > 60 Est GFR (Non-Af Amer) > 60 Glucose 128 H Calcium 7.6 L Impressions: Abdomen/Pelvis CT 02/02/18 00:00 IMPRESSION: Findings worrisome for perforated appendicitis with 3 cm abscess at the appendiceal tip. There is inflammation of the cecum with inflammation in the mesenteric fat along the right iliopsoas region. Chest X-Ray 02/02/18 20:47 IMPRESSION: No acute cardiopulmonary findings. Assessment & Plan - Diagnosis (1) Diverticulitis large intestine w/o perforation or abscess w/o bleeding Is this a current diagnosis for this admission?: Yes Plan: Patient is currently doing well will continue Cipro and Flagyl (2) Hypertension Qualifiers: Hypertension type: essential hypertension Qualified Code(s): I10 - Essential (primary) hypertension Is this a current diagnosis for this admission?: Yes Plan: Continues to current medications (3) Pulmonary embolism Qualifiers: Pulmonary embolism type: other Chronicity: chronic Acute cor pulmonale presence: without acute cor pulmonale Qualified Code(s): I27.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 Is this a current diagnosis for this admission?: Yes Plan: As per discussed with the surgery okay to restart the full dose of Lovenox (4) Neuralgia, post-herpetic Is this a current diagnosis for this admission?: Yes Plan: Continues to gabapentin (5) Acute perforated appendicitis Is this a current diagnosis for this admission?: Yes Plan: Postop number day 3 status post ileus currently follow with the surgery discussed with the Dr. Blancas - Time Time Spent with patient: 15-24 minutes Medications reviewed and adjusted accordingly: Yes Anticipated discharge: Home Within: Other - Inpatient Certification Medical Necessity: Need Close Monitoring Due to Risk of Patient Decompensation, Need For IV Fluids, Need for IV Antibiotics Post Hospital Care: D/C [employer] Documentation - Plan Summary Plan Summary: Continues current medications
[2018-02-06] MEDS: TIMOLOL MALEATE 0.5% OPH SOLN 5 ML OU SCH ×2 (13:48→17:48)
--- NOTE | 2018-02-06 18:02 | PDOC PROGRESS REPORT ---
Subjective Progress Note for:: 02/06/18 Subjective:: Patient has not been up much; he is required to person left with physical therapy; Owen catheter still in drains still in VAC on. Minimal clear liquid intake. Reason For Visit: ABD PAIN Physical Exam Vital Signs: Temp Pulse Resp BP Pulse Ox 98.8 F 71 16 118/63 95 02/06/18 17:33 02/06/18 17:33 02/06/18 17:33 02/06/18 17:33 02/06/18 17:33 Intake & Output 02/05/18 02/06/18 02/07/18 06:59 06:59 06:59 Intake Total 2360 2306 100 Output Total 900 1090 Balance 1460 1216 100 Weight 110.2 kg 110.1 kg General appearance: PRESENT: no acute distress GI/Abdominal exam: PRESENT: other - Abdomen slightly distended VAC in place; quadrant drain removed. Results Laboratory Results: 02/06/18 06:50 02/06/18 06:50 02/06/18 02/06/18 06:50 06:50 WBC 10.2 RBC 3.63 L Hgb 11.5 L Hct 33.9 L MCV 93 MCH 31.7 MCHC 34.0 RDW 14.4 H Plt Count 351 Sodium 135.0 L Potassium 3.5 L Chloride 104 Carbon Dioxide 26 Anion Gap 5 BUN 9 Creatinine 0.91 Est GFR ( Amer) > 60 Est GFR (Non-Af Amer) > 60 Glucose 128 H Calcium 7.6 L Impressions: Abdomen/Pelvis CT 02/02/18 00:00 IMPRESSION: Findings worrisome for perforated appendicitis with 3 cm abscess at the appendiceal tip. There is inflammation of the cecum with inflammation in the mesenteric fat along the right iliopsoas region. Chest X-Ray 02/02/18 20:47 IMPRESSION: No acute cardiopulmonary findings. Assessment & Plan - Diagnosis (1) Acute perforated appendicitis Is this a current diagnosis for this admission?: Yes Plan: Impression: Postoperative day 3, slow to go, limited GI function; more aggressive pulmonary toilet; Plan: 1. Discontinue drain-done 2. Get patient up 3. Continue intravenous antibiotics 4. Discontinue narcotics; start Toradol 5. Anticipate discontinuing Owen catheter in the morning (3) Hypertension Qualifiers: Hypertension type: essential hypertension Qualified Code(s): I10 - Essential (primary) hypertension Is this a current diagnosis for this admission?: Yes (4) Neuralgia, post-herpetic Is this a current diagnosis for this admission?: Yes (5) Pulmonary embolism Qualifiers: Pulmonary embolism type: other Chronicity: chronic Acute cor pulmonale presence: without acute cor pulmonale Qualified Code(s): I27.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 Is this a current diagnosis for this admission?: Yes
[2018-02-06] MEDS: KETOROLAC TROMETHAMINE INJ/PF 30 MG/1 ML SDV IV PRN (20:59)
[2018-02-06] MEDS: ENOXAPARIN SODIUM INJ 100 MG/1 ML DISP.SYRIN SUBCUT SCH (22:05)
[2018-02-07] MEDS: POTASSI CL 20 MEQ/D5-1/2NS 1L 1000 ML IV PRN (02:46)
[2018-02-07] MEDS: METRONIDAZOLE 500 MG/NS RTU 500 MG/100 ML RTUPB IV SCH ×4 (02:46→20:44)
[2018-02-07] MEDS: KETOROLAC TROMETHAMINE INJ/PF 30 MG/1 ML SDV IV PRN ×4 (02:51→20:44)
[2018-02-07] MEDS: CIPROFLOXACIN 400 MG/D5W RTU 400 MG/200 ML RTUPB IV SCH ×2 (05:20→17:16)
[2018-02-07 05:48] LABS: ABSOLUTE EOSINOPHILS # (AUTO) 0.2 10^3/uL (0.0-0.6); ABSOLUTE LYMPHOCYTES (AUTO) 1.4 10^3/uL (0.5-4.7); ABSOLUTE MONOCYTES (AUTO) 1.5 10^3/uL (0.1-1.4); ABSOLUTE NEUT (AUTO) 6.7 10^3/uL (1.7-8.2); BASOPHILS % (AUTO) 0.3 % (0-2); EOSINOPHILS % (AUTO) 1.8 % (0-6); HEMATOCRIT 34.7 % (37.9-51.0); HEMOGLOBIN 11.8 g/dL (13.5-17.0); LYMPHOCYTES % (AUTO) 14.6 % (13-45); MEAN CORPUSCULAR HEMOGLOBIN 31.7 pg (27.0-33.4); MEAN CORPUSCULAR HGB CONC 34.1 g/dL (32.0-36.0); MEAN CORPUSCULAR VOLUME 93 fl (80-97); MONOCYTES % (AUTO) 15.6 % (3-13); PLATELET COUNT 379 10^3/uL (150-450); RED BLOOD COUNT 3.74 10^6/uL (4.35-5.55); RED CELL DISTRIBUTION WIDTH 14.5 % (11.5-14.0); SEGMENTED NEUTROPHILS % (AUTO) 67.7 % (42-78); TOTAL CELLS COUNTED % (AUTO) 100 %; WHITE BLOOD COUNT 9.9 10^3/uL (4.0-10.5)
[2018-02-07 06:10] LABS: ANION GAP 5 (5-19); BLOOD UREA NITROGEN 10 mg/dL (7-20); CALCIUM 7.5 mg/dL (8.4-10.2); CARBON DIOXIDE 25 mmol/L (22-30); CHLORIDE 106 mmol/L (98-107); GLUCOSE 113 mg/dL (75-110); POTASSIUM 3.7 mmol/L (3.6-5.0); SODIUM 136.1 mmol/L (137-145)
[2018-02-07] MEDS: ACETAMINOPHEN 325 MG TABLET PO PRN (08:17)
[2018-02-07] MEDS: AMLODIPINE BESYLATE 5 MG TABLET PO SCH (09:01)
[2018-02-07] MEDS: ENOXAPARIN SODIUM INJ 100 MG/1 ML DISP.SYRIN SUBCUT SCH ×2 (09:02→21:00)
[2018-02-07] MEDS: FAMOTIDINE INJ/PF 20 MG/2 ML SDV IV SCH ×2 (09:02→21:00)
--- NOTE | 2018-02-07 11:06 | PDOC PROGRESS REPORT ---
Subjective Progress Note for:: 02/07/18 Subjective:: Patient remain NPO. No flatus or bowel movement. No chest pain or difficulty with breathing. No fever or chills. Reason For Visit: ABD PAIN Physical Exam Vital Signs: Temp Pulse Resp BP Pulse Ox 99.0 F 72 16 123/70 91 L 02/07/18 07:50 02/07/18 07:50 02/07/18 07:50 02/07/18 07:50 02/07/18 07:50 Intake & Output 02/06/18 02/07/18 02/08/18 06:59 06:59 06:59 Intake Total 2306 1780 Output Total 1090 700 Balance 1216 1080 Weight 110.1 kg 111.1 kg General appearance: PRESENT: no acute distress Head exam: PRESENT: atraumatic, normocephalic Eye exam: PRESENT: other - blind Ear exam: PRESENT: normal external ear exam Mouth exam: PRESENT: moist Respiratory exam: PRESENT: clear to auscultation chadwick, decreased breath sounds - at lung bases Cardiovascular exam: PRESENT: RRR. ABSENT: diastolic murmur, rubs, systolic murmur Vascular exam: ABSENT: pallor GI/Abdominal exam: PRESENT: distended, hypoactive bowel sounds, other - wound vac okay. Extremities exam: ABSENT: pedal edema Neurological exam: PRESENT: alert, awake, oriented to person, oriented to place , oriented to time, oriented to situation, CN II-XII grossly intact. ABSENT: motor sensory deficit Psychiatric exam: PRESENT: appropriate affect, normal mood. ABSENT: homicidal ideation, suicidal ideation Skin exam: PRESENT: dry, warm, other - surgical wound site satisfactory. Results Laboratory Results: 02/07/18 05:30 02/07/18 05:30 02/07/18 02/07/18 05:30 05:30 WBC 9.9 RBC 3.74 L Hgb 11.8 L Hct 34.7 L MCV 93 MCH 31.7 MCHC 34.1 RDW 14.5 H Plt Count 379 Seg Neutrophils % 67.7 Lymphocytes % 14.6 Monocytes % 15.6 H Eosinophils % 1.8 Basophils % 0.3 Absolute Neutrophils 6.7 Absolute Lymphocytes 1.4 Absolute Monocytes 1.5 H Absolute Eosinophils 0.2 Absolute Basophils 0.0 Sodium 136.1 L Potassium 3.7 Chloride 106 Carbon Dioxide 25 Anion Gap 5 BUN 10 Creatinine 0.90 Est GFR ( Amer) > 60 Est GFR (Non-Af Amer) > 60 Glucose 113 H Calcium 7.5 L Magnesium 2.6 H Impressions: Abdomen/Pelvis CT 02/02/18 00:00 IMPRESSION: Findings worrisome for perforated appendicitis with 3 cm abscess at the appendiceal tip. There is inflammation of the cecum with inflammation in the mesenteric fat along the right iliopsoas region. Chest X-Ray 02/02/18 20:47 IMPRESSION: No acute cardiopulmonary findings. Assessment & Plan - Diagnosis (1) Acute perforated appendicitis Is this a current diagnosis for this admission?: Yes Plan: s/p appendectomy. Continue IV Flagyl and Ciprofloxacin coverage. Monitor CBC indices. (2) Diverticulitis large intestine w/o perforation or abscess w/o bleeding Is this a current diagnosis for this admission?: Yes Plan: Continue IV Flagyl and Ciprofloxacin coverage. Monitor CBC indices. (3) Hypertension Qualifiers: Hypertension type: essential hypertension Qualified Code(s): I10 - Essential (primary) hypertension Is this a current diagnosis for this admission?: Yes Plan: Continue current medication management with oral Amlodipine. - Time Time Spent with patient: 25-34 minutes Medications reviewed and adjusted accordingly: Yes Anticipated discharge: SNF - for short term rehabilitation. Within: Other - Inpatient Certification Based on my medical assessment, after consideration of the patient's comorbidities, presenting symptoms, or acuity I expect that the services needed warrant INPATIENT care.: Yes I certify that my determination is in accordance with my understanding of Medicare's requirements for reasonable and necessary INPATIENT services [42 CFR 412.3e].: Yes Medical Necessity: Need Close Monitoring Due to Risk of Patient Decompensation, Need For IV Fluids, Need For Continuous Telemetry Monitoring, Need for IV Antibiotics, Need for Surgery, Risk of Complication if Not Cared For in Hospital Post Hospital Care: D/C or Transfer Summary - Plan Summary Plan Summary: See covering attending physician coverage. Continue NPO status except for ice chips and medication administration.
[2018-02-07] MEDS: TIMOLOL MALEATE 0.5% OPH SOLN 5 ML OU SCH ×2 (12:49→17:16)
[2018-02-07 13:40] LABS: APPEARANCE,URINE SLIGHTLY-CLOUDY; BILIRUBIN,URINE NEGATIVE (NEGATIVE); COLOR,URINE AMBER; GLUCOSE, URINE NEGATIVE (NEGATIVE); KETONES,URINE NEGATIVE (NEGATIVE); LEUKOCYTE ESTERASE,URINE SMALL (NEGATIVE); NITRITE,URINE NEGATIVE (NEGATIVE); PROTEIN,URINE 30 mg/dL (NEGATIVE); URINE SPECIFIC GRAVITY 1.028
[2018-02-07] MEDS: NORMAL SALINE 1000 ML 1,000 ML IV PRN (20:44)
--- NOTE | 2018-02-07 23:01 | PDOC PROGRESS REPORT ---
Subjective Progress Note for:: 02/07/18 Subjective:: abd pains Reason For Visit: ABD PAIN Physical Exam Vital Signs: Temp Pulse Resp BP Pulse Ox 97.5 F 68 19 125/70 98 02/07/18 19:38 02/07/18 19:38 02/07/18 19:38 02/07/18 19:38 02/07/18 19:38 Intake & Output 02/06/18 02/07/18 02/08/18 06:59 06:59 06:59 Intake Total 2306 1980 400 Output Total 1090 700 130 Balance 1216 1280 270 Weight 110.1 kg 111.1 kg Exam: abd is soft with mild distention due to ileus Abd wound vac in place. No inflammation around wound vac Appears very weak Results Laboratory Results: 02/07/18 05:30 02/07/18 05:30 02/07/18 02/07/18 02/07/18 05:30 05:30 13:04 WBC 9.9 RBC 3.74 L Hgb 11.8 L Hct 34.7 L MCV 93 MCH 31.7 MCHC 34.1 RDW 14.5 H Plt Count 379 Seg Neutrophils % 67.7 Lymphocytes % 14.6 Monocytes % 15.6 H Eosinophils % 1.8 Basophils % 0.3 Absolute Neutrophils 6.7 Absolute Lymphocytes 1.4 Absolute Monocytes 1.5 H Absolute Eosinophils 0.2 Absolute Basophils 0.0 Sodium 136.1 L Potassium 3.7 Chloride 106 Carbon Dioxide 25 Anion Gap 5 BUN 10 Creatinine 0.90 Est GFR ( Amer) > 60 Est GFR (Non-Af Amer) > 60 Glucose 113 H Calcium 7.5 L Magnesium 2.6 H Urine Color ZACHARY Urine Appearance SLIGHTLY-CLOUDY Urine pH 6.0 Ur Specific [place] 1.028 Urine Protein 30 H Urine Glucose (UA) NEGATIVE Urine Ketones NEGATIVE Urine Blood SMALL H Urine Nitrite NEGATIVE Ur Leukocyte Esterase SMALL H Urine WBC (Auto) 8 Urine RBC (Auto) 119 Impressions: Abdomen/Pelvis CT 02/02/18 00:00 IMPRESSION: Findings worrisome for perforated appendicitis with 3 cm abscess at the appendiceal tip. There is inflammation of the cecum with inflammation in the mesenteric fat along the right iliopsoas region. Chest X-Ray 02/02/18 20:47 IMPRESSION: No acute cardiopulmonary findings. Assessment & Plan - Time Time Spent with patient: 15-24 minutes - Inpatient Certification Medical Necessity: Significant Comorbidiites Make Outpatient Treatment Too Risky , Need For IV Fluids, Need for IV Antibiotics, Risk of Complication if Not Cared For in Hospital - Plan Summary Plan Summary: Continue IVF and Antibiotics Continue NPO except Ice chips Physical therapy
[2018-02-08] MEDS ORDERED: BISACODYL 10 MG SUPP.RECT PR ONE (02:00)
[2018-02-08] MEDS: METRONIDAZOLE 500 MG/NS RTU 500 MG/100 ML RTUPB IV SCH ×4 (02:00→22:20)
[2018-02-08] MEDS: KETOROLAC TROMETHAMINE INJ/PF 30 MG/1 ML SDV IV PRN ×3 (02:55→22:19)
[2018-02-08 05:50] LABS: ABSOLUTE EOSINOPHILS # (AUTO) 0.2 10^3/uL (0.0-0.6); ABSOLUTE LYMPHOCYTES (AUTO) 1.5 10^3/uL (0.5-4.7); ABSOLUTE MONOCYTES (AUTO) 1.6 10^3/uL (0.1-1.4); ABSOLUTE NEUT (AUTO) 8.6 10^3/uL (1.7-8.2); BASOPHILS % (AUTO) 0.2 % (0-2); EOSINOPHILS % (AUTO) 1.3 % (0-6); HEMATOCRIT 37.9 % (37.9-51.0); HEMOGLOBIN 12.9 g/dL (13.5-17.0); LYMPHOCYTES % (AUTO) 12.7 % (13-45); MEAN CORPUSCULAR HEMOGLOBIN 31.1 pg (27.0-33.4); MEAN CORPUSCULAR HGB CONC 33.9 g/dL (32.0-36.0); MEAN CORPUSCULAR VOLUME 92 fl (80-97); MONOCYTES % (AUTO) 13.8 % (3-13); PLATELET COUNT 471 10^3/uL (150-450); RED BLOOD COUNT 4.14 10^6/uL (4.35-5.55); RED CELL DISTRIBUTION WIDTH 14.6 % (11.5-14.0); TOTAL CELLS COUNTED % (AUTO) 100 %; WHITE BLOOD COUNT 11.9 10^3/uL (4.0-10.5)
[2018-02-08 06:11] LABS: ANION GAP 9 (5-19); BLOOD UREA NITROGEN 11 mg/dL (7-20); CALCIUM 7.6 mg/dL (8.4-10.2); CARBON DIOXIDE 21 mmol/L (22-30); CHLORIDE 106 mmol/L (98-107); GLUCOSE 105 mg/dL (75-110); POTASSIUM 3.8 mmol/L (3.6-5.0); SODIUM 135.9 mmol/L (137-145)
[2018-02-08] MEDS: CIPROFLOXACIN 400 MG/D5W RTU 400 MG/200 ML RTUPB IV SCH (06:58)
[2018-02-08] MEDS: NORMAL SALINE 1000 ML 1,000 ML IV PRN ×2 (06:58→23:44)
[2018-02-08] MEDS ORDERED: PHARMACY COMMUNICATION ORDER MC NR (09:45)
[2018-02-08] MEDS: ENOXAPARIN SODIUM INJ 100 MG/1 ML DISP.SYRIN SUBCUT SCH (09:53)
[2018-02-08] MEDS: AMLODIPINE BESYLATE 5 MG TABLET NG SCH (09:54)
[2018-02-08] MEDS: FAMOTIDINE INJ/PF 20 MG/2 ML SDV IV SCH ×2 (09:55→22:20)
--- NOTE | 2018-02-08 09:55 | PDOC PROGRESS REPORT ---
Subjective Progress Note for:: 02/08/18 Subjective:: Episodes of recurrent bilious vomiting since last clinical evaluation necessitating NGT placement. Patient reported pass gas. No abdominal pain. No chest pain or difficulty with breathing. Low grade fever. Patient reported difficulty with urinating but refusing straight catheterization. Reason For Visit: ABD PAIN Physical Exam Vital Signs: Temp Pulse Resp BP Pulse Ox 98.6 F 81 17 132/82 H 93 02/08/18 08:06 02/08/18 08:06 02/08/18 08:06 02/08/18 08:06 02/08/18 08:06 Intake & Output 02/07/18 02/08/18 02/09/18 06:59 06:59 06:59 Intake Total 1980 2780 200 Output Total 700 330 Balance 1280 2450 200 Weight 111.1 kg 107.4 kg Physical Exam: General appearance: PRESENT: no acute distress Head exam: PRESENT: atraumatic, normocephalic Eye exam: PRESENT: other - blind Ear exam: PRESENT: normal external ear exam Mouth exam: PRESENT: moist Respiratory exam: PRESENT: clear to auscultation chadwick, decreased breath sounds - at lung bases Cardiovascular exam: PRESENT: RRR. ABSENT: diastolic murmur, rubs, systolic murmur Vascular exam: ABSENT: pallor GI/Abdominal exam: PRESENT: distended, hypoactive bowel sounds, other - wound vac okay. Extremities exam: ABSENT: pedal edema Neurological exam: PRESENT: alert, awake, oriented to person, oriented to place , oriented to time, oriented to situation, CN II-XII grossly intact. ABSENT: motor sensory deficit Psychiatric exam: PRESENT: appropriate affect, normal mood. ABSENT: homicidal ideation, suicidal ideation Skin exam: PRESENT: dry, warm, other - surgical wound site satisfactory. Results Laboratory Results: 02/08/18 05:30 02/08/18 05:30 02/07/18 02/08/18 02/08/18 13:04 05:30 05:30 WBC 11.9 H RBC 4.14 L Hgb 12.9 L Hct 37.9 MCV 92 MCH 31.1 MCHC 33.9 RDW 14.6 H Plt Count 471 H Seg Neutrophils % 72.0 Lymphocytes % 12.7 L Monocytes % 13.8 H Eosinophils % 1.3 Basophils % 0.2 Absolute Neutrophils 8.6 H Absolute Lymphocytes 1.5 Absolute Monocytes 1.6 H Absolute Eosinophils 0.2 Absolute Basophils 0.0 Sodium 135.9 L Potassium 3.8 Chloride 106 Carbon Dioxide 21 L Anion Gap 9 BUN 11 Creatinine 0.86 Est GFR ( Amer) > 60 Est GFR (Non-Af Amer) > 60 Glucose 105 Calcium 7.6 L Urine Color ZACHARY Urine Appearance SLIGHTLY-CLOUDY Urine pH 6.0 Ur Specific [place] 1.028 Urine Protein 30 H Urine Glucose (UA) NEGATIVE Urine Ketones NEGATIVE Urine Blood SMALL H Urine Nitrite NEGATIVE Ur Leukocyte Esterase SMALL H Urine WBC (Auto) 8 Urine RBC (Auto) 119 Impressions: Abdomen/Pelvis CT 02/02/18 00:00 IMPRESSION: Findings worrisome for perforated appendicitis with 3 cm abscess at the appendiceal tip. There is inflammation of the cecum with inflammation in the mesenteric fat along the right iliopsoas region. Chest X-Ray 02/02/18 20:47 IMPRESSION: No acute cardiopulmonary findings. Assessment & Plan - Diagnosis (1) Acute perforated appendicitis Is this a current diagnosis for this admission?: Yes (2) Diverticulitis large intestine w/o perforation or abscess w/o bleeding Is this a current diagnosis for this admission?: Yes Plan: Continue IV Flagyl coverage. (3) Hypertension Qualifiers: Hypertension type: essential hypertension Qualified Code(s): I10 - Essential (primary) hypertension Is this a current diagnosis for this admission?: Yes (4) UTI (urinary tract infection), bacterial Is this a current diagnosis for this admission?: Yes Plan: D/C Ciprofloxacin. Start on Levofloxacin based on culture report to broaden coverage. (5) Bacterial peritonitis Is this a current diagnosis for this admission?: Yes Plan: D/C Ciprofloxacin. Start on Levofloxacin based on culture report to broaden coverage. (6) Urinary retention Is this a current diagnosis for this admission?: Yes Plan: There is difficulty with bladder scan due to surgical wound management with wound vac placement. Recommend indwelling Owen cath placement at this time. - Time Time Spent with patient: 25-34 minutes Medications reviewed and adjusted accordingly: Yes Anticipated discharge: SNF Within: Other - Inpatient Certification Based on my medical assessment, after consideration of the patient's comorbidities, presenting symptoms, or acuity I expect that the services needed warrant INPATIENT care.: Yes I certify that my determination is in accordance with my understanding of Medicare's requirements for reasonable and necessary INPATIENT services [42 CFR 412.3e].: Yes Medical Necessity: Need Close Monitoring Due to Risk of Patient Decompensation, Need For IV Fluids, Need For Continuous Telemetry Monitoring, Need for Pain Control, Need for IV Antibiotics, Need for Surgery, Risk of Complication if Not Cared For in Hospital Post Hospital Care: D/C or Transfer Summary - Plan Summary Plan Summary: See covering attending physician orders. I had update discussion with daughter at bedside.
[2018-02-08] MEDS: TIMOLOL MALEATE 0.5% OPH SOLN 5 ML OU SCH ×2 (09:56→17:31)
--- NOTE | 2018-02-08 10:31 | RADIOLOGY REPORT (SQ) ---
EXAM DESCRIPTION: KUB/ABDOMEN (SINGLE VIEW) COMPLETED DATE/TIME: 02/08/2018 10:16 am REASON FOR STUDY: Check Placement of NG Tube COMPARISON: CT and chest radiographs from 02/02/2018. FINDINGS: AP portable supine image of the lower chest and abdomen. Nasogastric tube down with tip appropriately positioned within the stomach. Mild enteric contrast in the colon. Mild gaseous distension of upper abdominal small bowel loops. IMPRESSION: Appropriate NG tube location. TECHNICAL DOCUMENTATION: JOB ID: [id number] Reading location - IP/workstation name: [email or web address]
--- NOTE | 2018-02-08 15:40 | PDOC PROGRESS REPORT ---
Subjective Progress Note for:: 02/08/18 Subjective:: More comfortable with NGT and berry Reason For Visit: ABD PAIN Physical Exam Vital Signs: Temp Pulse Resp BP Pulse Ox 97.5 F 76 17 133/80 H 97 02/08/18 11:34 02/08/18 11:34 02/08/18 11:34 02/08/18 11:34 02/08/18 11:34 Intake & Output 02/07/18 02/08/18 02/09/18 06:59 06:59 06:59 Intake Total 1980 2780 300 Output Total 700 330 Balance 1280 2450 300 Weight 111.1 kg 107.4 kg Exam: NGT draining 200 ccs of greenish fuid since placed early am. Abd slightly distended but non tender Berry draining 3-400 ccs of highly colored urine since this am. Patient refuses serial stright caths. KUB shows ileus Results Laboratory Results: 02/08/18 05:30 02/08/18 05:30 02/08/18 02/08/18 05:30 05:30 WBC 11.9 H RBC 4.14 L Hgb 12.9 L Hct 37.9 MCV 92 MCH 31.1 MCHC 33.9 RDW 14.6 H Plt Count 471 H Seg Neutrophils % 72.0 Lymphocytes % 12.7 L Monocytes % 13.8 H Eosinophils % 1.3 Basophils % 0.2 Absolute Neutrophils 8.6 H Absolute Lymphocytes 1.5 Absolute Monocytes 1.6 H Absolute Eosinophils 0.2 Absolute Basophils 0.0 Sodium 135.9 L Potassium 3.8 Chloride 106 Carbon Dioxide 21 L Anion Gap 9 BUN 11 Creatinine 0.86 Est GFR ( Amer) > 60 Est GFR (Non-Af Amer) > 60 Glucose 105 Calcium 7.6 L 02/03/18 14:01 Appendix Gram Stain - Final 02/03/18 14:01 Appendix Wound Culture - Final Pseudomonas Aeruginosa Streptococcus Salivarius Prevotella Species Impressions: Abdomen/Pelvis CT 02/02/18 00:00 IMPRESSION: Findings worrisome for perforated appendicitis with 3 cm abscess at the appendiceal tip. There is inflammation of the cecum with inflammation in the mesenteric fat along the right iliopsoas region. Chest X-Ray 02/02/18 20:47 IMPRESSION: No acute cardiopulmonary findings. KUB X-Ray 09/30/18 09:45 IMPRESSION: Appropriate NG tube location. Assessment & Plan - Diagnosis (1) Postoperative ileus Is this a current diagnosis for this admission?: Yes - Time Time Spent with patient: 15-24 minutes - Inpatient Certification Medical Necessity: Need For IV Fluids, Need for Pain Control, Need for IV Antibiotics, Risk of Complication if Not Cared For in Hospital - Plan Summary Plan Summary: Keep NGT and berry for now Continue IV antibiotics Monitor lytes and wbc Hydrate POD #5 Subcu Heparin
[2018-02-08] MEDS: HEPARIN SOD (PORCINE) 5,000 UNIT/ML 1 ML SYRINGE SUBCUT SCH (17:30)
[2018-02-08] MEDS ORDERED: LEVOFLOXACIN 500 MG/D5W RTU 500 MG/100 ML RTUPB IV SCH (18:00)
[2018-02-09] MEDS: METRONIDAZOLE 500 MG/NS RTU 500 MG/100 ML RTUPB IV SCH ×2 (03:59→09:15)
[2018-02-09] MEDS: KETOROLAC TROMETHAMINE INJ/PF 30 MG/1 ML SDV IV PRN ×3 (04:18→23:10)
[2018-02-09 06:06] LABS: ABSOLUTE EOSINOPHILS # (AUTO) 0.1 10^3/uL (0.0-0.6); ABSOLUTE LYMPHOCYTES (AUTO) 1.4 10^3/uL (0.5-4.7); ABSOLUTE MONOCYTES (AUTO) 1.4 10^3/uL (0.1-1.4); ABSOLUTE NEUT (AUTO) 8.5 10^3/uL (1.7-8.2); BASOPHILS % (AUTO) 0.4 % (0-2); EOSINOPHILS % (AUTO) 0.8 % (0-6); HEMATOCRIT 37.1 % (37.9-51.0); HEMOGLOBIN 12.6 g/dL (13.5-17.0); LYMPHOCYTES % (AUTO) 12.3 % (13-45); MEAN CORPUSCULAR HEMOGLOBIN 31.1 pg (27.0-33.4); MEAN CORPUSCULAR VOLUME 92 fl (80-97); PLATELET COUNT 514 10^3/uL (150-450); RED BLOOD COUNT 4.05 10^6/uL (4.35-5.55); RED CELL DISTRIBUTION WIDTH 14.7 % (11.5-14.0); SEGMENTED NEUTROPHILS % (AUTO) 74.5 % (42-78); TOTAL CELLS COUNTED % (AUTO) 100 %; WHITE BLOOD COUNT 11.4 10^3/uL (4.0-10.5)
[2018-02-09 06:27] LABS: ALANINE AMINOTRANSFERASE 31 U/L (21-72); ALBUMIN 2.4 g/dL (3.5-5.0); ALKALINE PHOSPHATASE 47 U/L (38-126); ANION GAP 10 (5-19); ASPARTATE AMINO TRANSFERASE 16 U/L (17-59); BILIRUBIN,DIRECT 0.4 mg/dL (0.0-0.4); BILIRUBIN,TOTAL 0.5 mg/dL (0.2-1.3); BLOOD UREA NITROGEN 12 mg/dL (7-20); CALCIUM 7.6 mg/dL (8.4-10.2); CARBON DIOXIDE 19 mmol/L (22-30); CHLORIDE 109 mmol/L (98-107); GLUCOSE 93 mg/dL (75-110); POTASSIUM 3.8 mmol/L (3.6-5.0); SODIUM 137.7 mmol/L (137-145); TOTAL PROTEIN 5.3 g/dL (6.3-8.2)
[2018-02-09] MEDS: HEPARIN SOD (PORCINE) 5,000 UNIT/ML 1 ML SYRINGE SUBCUT SCH (06:31)
--- NOTE | 2018-02-09 09:35 | PDOC PROGRESS REPORT ---
Subjective Progress Note for:: 02/09/18 Subjective:: Patient remains bedridden with nasogastric tube drainage and Owen catheter inserted. Uncertain if he has passed flatus. Reason For Visit: ABD PAIN Physical Exam Vital Signs: Temp Pulse Resp BP Pulse Ox 97.6 F 76 16 138/70 H 92 02/09/18 07:47 02/09/18 07:47 02/09/18 07:47 02/09/18 07:47 02/09/18 07:47 Intake & Output 02/08/18 02/09/18 02/10/18 06:59 06:59 06:59 Intake Total 2780 1880 Output Total 330 600 Balance 2450 1280 Weight 107.4 kg 110 kg General appearance: PRESENT: no acute distress GI/Abdominal exam: PRESENT: other - Abdomen remains slightly distended, tympanitic, without peritoneal signs or rigidity. Wound VAC in place. No drainage from drain site. Results Laboratory Results: 02/09/18 05:28 02/09/18 05:28 02/09/18 02/09/18 05:28 05:28 WBC 11.4 H RBC 4.05 L Hgb 12.6 L Hct 37.1 L MCV 92 MCH 31.1 MCHC 34.0 RDW 14.7 H Plt Count 514 H Seg Neutrophils % 74.5 Lymphocytes % 12.3 L Monocytes % 12.0 Eosinophils % 0.8 Basophils % 0.4 Absolute Neutrophils 8.5 H Absolute Lymphocytes 1.4 Absolute Monocytes 1.4 Absolute Eosinophils 0.1 Absolute Basophils 0.0 Sodium 137.7 Potassium 3.8 Chloride 109 H Carbon Dioxide 19 L Anion Gap 10 BUN 12 Creatinine 0.83 Est GFR ( Amer) > 60 Est GFR (Non-Af Amer) > 60 Glucose 93 Calcium 7.6 L Total Bilirubin 0.5 AST 16 L ALT 31 Alkaline Phosphatase 47 Total Protein 5.3 L Albumin 2.4 L 02/03/18 14:01 Appendix Gram Stain - Final 02/03/18 14:01 Appendix Wound Culture - Final Pseudomonas Aeruginosa Streptococcus Salivarius Prevotella Species Impressions: Abdomen/Pelvis CT 02/02/18 00:00 IMPRESSION: Findings worrisome for perforated appendicitis with 3 cm abscess at the appendiceal tip. There is inflammation of the cecum with inflammation in the mesenteric fat along the right iliopsoas region. Chest X-Ray 02/02/18 20:47 IMPRESSION: No acute cardiopulmonary findings. KUB X-Ray 02/08/18 09:45 IMPRESSION: Appropriate NG tube location. Assessment & Plan - Diagnosis (1) Acute perforated appendicitis Is this a current diagnosis for this admission?: Yes Plan: Impression: Patient is 6 days status post laparoscopic conversion to open appendectomy, drainage of pelvis, slowed ago, persisting ileus; unremarkable labs; mild dehydration recommendations: 1. Continue IV fluids; 2. And, pulmonary toilet; this was discussed at length with patient's daughter at bedside. 3. We will discontinue IV antibiotics, in light of essentially normal white blood count and no fever, as he has had 10 days worth and is at risk for developing superinfection, fungal infection etc. (3) Hypertension Qualifiers: Hypertension type: essential hypertension Qualified Code(s): I10 - Essential (primary) hypertension Is this a current diagnosis for this admission?: Yes (4) Neuralgia, post-herpetic Is this a current diagnosis for this admission?: Yes (5) Pulmonary embolism Qualifiers: Pulmonary embolism type: other Chronicity: chronic Acute cor pulmonale presence: without acute cor pulmonale Qualified Code(s): I27.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 Is this a current diagnosis for this admission?: Yes
[2018-02-09] MEDS: FAMOTIDINE INJ/PF 20 MG/2 ML SDV IV SCH ×2 (09:39→23:11)
[2018-02-09] MEDS: AMLODIPINE BESYLATE 5 MG TABLET NG SCH (09:39)
[2018-02-09] MEDS: TIMOLOL MALEATE 0.5% OPH SOLN 5 ML OU SCH ×2 (09:40→17:02)
--- NOTE | 2018-02-09 13:04 | PDOC PROGRESS REPORT ---
Subjective Progress Note for:: 02/09/18 Subjective:: Patient is currently doing still the same Patient still n.p.o. with this postop ileus As per discussed with the general surgery encourage more ambulatory Continues on NG tube No fever no chills This with the patient's family and the bedside Reason For Visit: ABD PAIN Physical Exam Vital Signs: Temp Pulse Resp BP Pulse Ox 97.4 F 67 16 138/68 H 99 02/09/18 11:45 02/09/18 11:45 02/09/18 11:45 02/09/18 11:45 02/09/18 11:45 Intake & Output 02/08/18 02/09/18 02/10/18 06:59 06:59 06:59 Intake Total 2780 1880 Output Total 330 600 Balance 2450 1280 Weight 107.4 kg 110 kg General appearance: PRESENT: no acute distress, well-developed, well-nourished Head exam: PRESENT: atraumatic, normocephalic Eye exam: PRESENT: conjunctiva pink, EOMI, PERRLA. ABSENT: scleral icterus Ear exam: PRESENT: normal external ear exam Mouth exam: PRESENT: moist, tongue midline Neck exam: PRESENT: full ROM. ABSENT: carotid bruit, JVD, lymphadenopathy, thyromegaly Respiratory exam: PRESENT: clear to auscultation chadwick Cardiovascular exam: PRESENT: RRR. ABSENT: diastolic murmur, rubs, systolic murmur Pulses: PRESENT: normal dorsalis pedis pul, +2 pedal pulses bilateral Vascular exam: PRESENT: normal capillary refill GI/Abdominal exam: PRESENT: distended, hypoactive bowel sounds. ABSENT: guarding, mass, organolmegaly, rebound, tenderness Rectal exam: PRESENT: deferred Extremities exam: ABSENT: pedal edema Neurological exam: PRESENT: alert, awake, oriented to person, oriented to place , oriented to time, oriented to situation, CN II-XII grossly intact. ABSENT: motor sensory deficit Psychiatric exam: PRESENT: appropriate affect, normal mood. ABSENT: homicidal ideation, suicidal ideation Skin exam: PRESENT: dry, intact, warm. ABSENT: cyanosis, rash Results Laboratory Results: 02/09/18 05:28 02/09/18 05:28 02/09/18 02/09/18 05:28 05:28 WBC 11.4 H RBC 4.05 L Hgb 12.6 L Hct 37.1 L MCV 92 MCH 31.1 MCHC 34.0 RDW 14.7 H Plt Count 514 H Seg Neutrophils % 74.5 Lymphocytes % 12.3 L Monocytes % 12.0 Eosinophils % 0.8 Basophils % 0.4 Absolute Neutrophils 8.5 H Absolute Lymphocytes 1.4 Absolute Monocytes 1.4 Absolute Eosinophils 0.1 Absolute Basophils 0.0 Sodium 137.7 Potassium 3.8 Chloride 109 H Carbon Dioxide 19 L Anion Gap 10 BUN 12 Creatinine 0.83 Est GFR ( Amer) > 60 Est GFR (Non-Af Amer) > 60 Glucose 93 Calcium 7.6 L Total Bilirubin 0.5 AST 16 L ALT 31 Alkaline Phosphatase 47 Total Protein 5.3 L Albumin 2.4 L 02/03/18 14:01 Appendix Gram Stain - Final 02/03/18 14:01 Appendix Wound Culture - Final Pseudomonas Aeruginosa Streptococcus Salivarius Prevotella Species Impressions: Abdomen/Pelvis CT 02/02/18 00:00 IMPRESSION: Findings worrisome for perforated appendicitis with 3 cm abscess at the appendiceal tip. There is inflammation of the cecum with inflammation in the mesenteric fat along the right iliopsoas region. Chest X-Ray 02/02/18 20:47 IMPRESSION: No acute cardiopulmonary findings. KUB X-Ray 02/08/18 09:45 IMPRESSION: Appropriate NG tube location. Assessment & Plan - Diagnosis (1) Diverticulitis large intestine w/o perforation or abscess w/o bleeding Is this a current diagnosis for this admission?: Yes (2) Hypertension Qualifiers: Hypertension type: essential hypertension Qualified Code(s): I10 - Essential (primary) hypertension Is this a current diagnosis for this admission?: Yes Plan: Continues to current medications (3) Pulmonary embolism Qualifiers: Pulmonary embolism type: other Chronicity: chronic Acute cor pulmonale presence: without acute cor pulmonale Qualified Code(s): I27.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 Is this a current diagnosis for this admission?: Yes Plan: As per general surgery somehow the medicines Lovenox was discontinued is and was started on a heparin subcu but discussed with the general surgery was patient still immobile restart the full dose of Lovenox (4) Neuralgia, post-herpetic Is this a current diagnosis for this admission?: Yes Plan: Continues to gabapentin (5) Acute perforated appendicitis Is this a current diagnosis for this admission?: Yes Plan: Follow with the general surgery with postop ileus - Time Time Spent with patient: 15-24 minutes Medications reviewed and adjusted accordingly: Yes Anticipated discharge: Other Within: Other - Inpatient Certification Based on my medical assessment, after consideration of the patient's comorbidities, presenting symptoms, or acuity I expect that the services needed warrant INPATIENT care.: Yes I certify that my determination is in accordance with my understanding of Medicare's requirements for reasonable and necessary INPATIENT services [42 CFR 412.3e].: Yes Medical Necessity: Need Close Monitoring Due to Risk of Patient Decompensation, Need For IV Fluids, Need for IV Antibiotics Post Hospital Care: 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
[2018-02-09] MEDS: BRIMONIDINE 0.15% OU SCH ×2 (13:11→17:04)
[2018-02-09] MEDS ORDERED: ENOXAPARIN SODIUM INJ 100 MG/1 ML DISP.SYRIN SUBCUT SCH (13:30)
[2018-02-09] MEDS: NORMAL SALINE 1000 ML 1,000 ML IV PRN (17:02)
[2018-02-09] MEDS: ENOXAPARIN SODIUM INJ 100 MG/1 ML DISP.SYRIN SUBCUT SCH (23:11)
[2018-02-10 04:53] LABS: ANION GAP 9 (5-19); BLOOD UREA NITROGEN 13 mg/dL (7-20); CALCIUM 7.4 mg/dL (8.4-10.2); CARBON DIOXIDE 20 mmol/L (22-30); CHLORIDE 111 mmol/L (98-107); GLUCOSE 92 mg/dL (75-110); POTASSIUM 3.7 mmol/L (3.6-5.0); SODIUM 139.8 mmol/L (137-145)
[2018-02-10] MEDS: ENOXAPARIN SODIUM INJ 100 MG/1 ML DISP.SYRIN SUBCUT SCH ×2 (10:29→21:35)
[2018-02-10] MEDS: AMLODIPINE BESYLATE 5 MG TABLET NG SCH (10:30)
[2018-02-10] MEDS: BRIMONIDINE 0.15% OU SCH ×3 (10:30→17:49)
[2018-02-10] MEDS: FAMOTIDINE INJ/PF 20 MG/2 ML SDV IV SCH ×2 (10:30→21:36)
[2018-02-10] MEDS: TIMOLOL MALEATE 0.5% OPH SOLN 5 ML OU SCH ×2 (10:30→17:49)
[2018-02-10] MEDS: DEXTROSE 5%-1/2 NORMAL SALINE 1,000 ML IV PRN (10:31)
--- NOTE | 2018-02-10 10:50 | PDOC PROGRESS REPORT ---
Subjective Progress Note for:: 02/10/18 Reason For Visit: ABD PAIN Physical Exam Vital Signs: Temp Pulse Resp BP Pulse Ox 98.8 F 75 18 127/66 H 95 02/10/18 07:25 02/10/18 07:25 02/10/18 07:25 02/10/18 07:25 02/10/18 07:25 Intake & Output 02/09/18 02/10/18 02/11/18 06:59 06:59 06:59 Intake Total 1880 2360 Output Total 600 750 Balance 1280 1610 Weight 110 kg 113.9 kg Results Laboratory Results: 02/09/18 05:28 02/10/18 04:17 02/10/18 04:17 Sodium 139.8 Potassium 3.7 Chloride 111 H Carbon Dioxide 20 L Anion Gap 9 BUN 13 Creatinine 0.79 Est GFR ( Amer) > 60 Est GFR (Non-Af Amer) > 60 Glucose 92 Calcium 7.4 L Impressions: Abdomen/Pelvis CT 02/02/18 00:00 IMPRESSION: Findings worrisome for perforated appendicitis with 3 cm abscess at the appendiceal tip. There is inflammation of the cecum with inflammation in the mesenteric fat along the right iliopsoas region. Chest X-Ray 02/02/18 20:47 IMPRESSION: No acute cardiopulmonary findings. KUB X-Ray 02/08/18 09:45 IMPRESSION: Appropriate NG tube location. Assessment & Plan - Diagnosis (1) Acute perforated appendicitis Is this a current diagnosis for this admission?: Yes - Plan Summary Plan Summary: This is a 77-year-old male status post laparotomy for perforated acute appendicitis. The patient reports feeling well this morning. He is afebrile. He is feeling less distended. He reports passing flatus. He has minimal output from his NG tube. The patient denies bowel movement at present. His wound VAC is still in place. I will discontinue the patient's NG tube, as it has not been productive over the last 24 hours. I will start the patient on ice chips. I will obtain an abdominal x-ray today to evaluate the patient's bowel gas pattern. The patient has an indwelling Owen catheter due to urinary retention. I will start the patient on Flomax and plan for catheter removal possibly tomorrow. I will consult physical therapy and psychiatric social worker for mobilization and discharge planning. I will remove the patient's wound VAC today and plan for loose approximation of his skin. This will facilitate his discharge (placement versus home health).
--- NOTE | 2018-02-10 11:20 | RADIOLOGY REPORT (SQ) ---
EXAM DESCRIPTION: KUB/ABDOMEN (SINGLE VIEW) COMPLETED DATE/TIME: 02/10/2018 11:06 am REASON FOR STUDY: distention COMPARISON: CT abdomen pelvis 01/30/2018, 02/02/2018 KUB 02/08/2018 NUMBER OF VIEWS: One view. TECHNIQUE: Supine radiographic image of the abdomen acquired. LIMITATIONS: None. FINDINGS: BOWEL GAS PATTERN: Oral contrast given for CT exam 01/30/2018 and 02/02/2018 is present in t he colon. There are persistent air-filled dilated loops of small bowel in the mid abdomen. This is an abnormal but nonspecific bowel gas pattern. CALCIFICATIONS: No suspicious calcifications. SOFT TISSUES: No gross mass or suggestion of organomegaly. HARDWARE: Owen catheter in the bladder BONES: No acute fracture. No worrisome bone lesions. OTHER: No other significant finding. IMPRESSION: Nonspecific bowel gas pattern likely represents an ileus, with a air filled mildly diste nded small bowel loops in the mid abdomen, and oral contrast from prior CT exams in the colon on toda y's study. TECHNICAL DOCUMENTATION: JOB ID: [id number] [employer]- All Rights Reserved Reading location - IP/workstation name: [email or web address]
--- NOTE | 2018-02-10 16:54 | PDOC PROGRESS REPORT ---
Subjective Progress Note for:: 02/10/18 Subjective:: Patient is currently doing still the same Patient still n.p.o. with this postop ileus As per discussed with the general surgery encourage more ambulatory Continues on NG tube No fever no chills This with the patient's family and the bedside Reason For Visit: ABD PAIN Physical Exam Vital Signs: Temp Pulse Resp BP Pulse Ox 98.4 F 66 17 142/69 H 97 02/10/18 16:00 02/10/18 16:00 02/10/18 16:00 02/10/18 16:00 02/10/18 16:00 Intake & Output 02/09/18 02/10/18 02/11/18 06:59 06:59 06:59 Intake Total 1880 2360 Output Total 600 750 Balance 1280 1610 Weight 110 kg 113.9 kg General appearance: PRESENT: no acute distress, well-developed, well-nourished Head exam: PRESENT: atraumatic, normocephalic Eye exam: PRESENT: conjunctiva pink, EOMI, PERRLA. ABSENT: scleral icterus Ear exam: PRESENT: normal external ear exam Mouth exam: PRESENT: moist, tongue midline Neck exam: PRESENT: full ROM. ABSENT: carotid bruit, JVD, lymphadenopathy, thyromegaly Respiratory exam: PRESENT: decreased breath sounds Cardiovascular exam: PRESENT: RRR. ABSENT: diastolic murmur, rubs, systolic murmur Pulses: PRESENT: normal dorsalis pedis pul, +2 pedal pulses bilateral Vascular exam: PRESENT: normal capillary refill GI/Abdominal exam: PRESENT: hypoactive bowel sounds, normal bowel sounds. ABSENT: distended, guarding, mass, organolmegaly, rebound, tenderness Additonal comments: surgical wound stable Rectal exam: PRESENT: deferred Extremities exam: PRESENT: pedal edema Neurological exam: PRESENT: alert, awake, oriented to person, oriented to place , oriented to time, oriented to situation, CN II-XII grossly intact. ABSENT: motor sensory deficit Psychiatric exam: PRESENT: appropriate affect, normal mood. ABSENT: homicidal ideation, suicidal ideation Skin exam: PRESENT: dry, intact, warm. ABSENT: cyanosis, rash Results Laboratory Results: 02/09/18 05:28 02/10/18 04:17 02/10/18 04:17 Sodium 139.8 Potassium 3.7 Chloride 111 H Carbon Dioxide 20 L Anion Gap 9 BUN 13 Creatinine 0.79 Est GFR ( Amer) > 60 Est GFR (Non-Af Amer) > 60 Glucose 92 Calcium 7.4 L Impressions: Abdomen/Pelvis CT 02/02/18 00:00 IMPRESSION: Findings worrisome for perforated appendicitis with 3 cm abscess at the appendiceal tip. There is inflammation of the cecum with inflammation in the mesenteric fat along the right iliopsoas region. Chest X-Ray 02/02/18 20:47 IMPRESSION: No acute cardiopulmonary findings. KUB X-Ray 02/10/18 00:00 IMPRESSION: Nonspecific bowel gas pattern likely represents an ileus, with a air filled mildly distended small bowel loops in the mid abdomen, and oral contrast from prior CT exams in the colon on today's study. Assessment & Plan - Diagnosis (1) Diverticulitis large intestine w/o perforation or abscess w/o bleeding Is this a current diagnosis for this admission?: Yes Plan: Patient is currently doing well will continue Cipro and Flagyl (2) Hypertension Qualifiers: Hypertension type: essential hypertension Qualified Code(s): I10 - Essential (primary) hypertension Is this a current diagnosis for this admission?: Yes Plan: Continues to current medications (3) Pulmonary embolism Qualifiers: Pulmonary embolism type: other Chronicity: chronic Acute cor pulmonale presence: without acute cor pulmonale Qualified Code(s): I27.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 Is this a current diagnosis for this admission?: Yes Plan: As per general surgery somehow the medicines Lovenox was discontinued is and was started on a heparin subcu but discussed with the general surgery was patient still immobile restart the full dose of Lovenox (4) Neuralgia, post-herpetic Is this a current diagnosis for this admission?: Yes Plan: Continues to gabapentin (5) Acute perforated appendicitis Is this a current diagnosis for this admission?: Yes Plan: Follow with the general surgery with postop ileus - Time Time Spent with patient: 25-34 minutes Medications reviewed and adjusted accordingly: Yes Anticipated discharge: Other Within: Other - Inpatient Certification Medical Necessity: Need Close Monitoring Due to Risk of Patient Decompensation Post Hospital Care: D/C Final Finisher Documentation - Plan Summary Plan Summary: cont curr med f/u surgery
--- NOTE | 2018-02-10 20:36 | Operative Report ---
Nonrecallable Operative Report DATE OF SURGERY: 02/10/18 PREOPERATIVE DIAGNOSIS: Open abdominal incision POSTOPERATIVE DIAGNOSIS: Same as above OPERATION: Delayed primary closure of open abdominal incision SURGEON: MALU ECKERT ANESTHESIA: Local TISSUE REMOVED OR ALTERED: None COMPLICATIONS: None apparent ESTIMATED BLOOD LOSS: Minimal PROCEDURE: Drains/implants: Wound VAC on top of skin/incision. Procedure in detail: After informed consent was obtained from the patient, he was sat in the semi-upright position in his hospital room. The area of the abdominal incision was prepped and draped in a normal sterile fashion. 1% lidocaine was used to anesthetize the skin of the abdominal wall. After this was completed, 2-0 nylon suture was used to loosely approximate the skin of the anterior abdominal wall. Once this was completed, Xeroform was placed over the wound and the wound VAC was placed over the Xeroform. A good seal was noted. At this time the procedure was concluded. All sponge, instrument, and needle counts were correct. Condition: Stable.
[2018-02-10] MEDS: KETOROLAC TROMETHAMINE INJ/PF 30 MG/1 ML SDV IV PRN (21:35)
[2018-02-11 05:23] LABS: HEMATOCRIT 38.8 % (37.9-51.0); HEMOGLOBIN 12.9 g/dL (13.5-17.0); MEAN CORPUSCULAR HEMOGLOBIN 31.2 pg (27.0-33.4); MEAN CORPUSCULAR HGB CONC 33.3 g/dL (32.0-36.0); MEAN CORPUSCULAR VOLUME 94 fl (80-97); PLATELET COUNT 564 10^3/uL (150-450); RED BLOOD COUNT 4.14 10^6/uL (4.35-5.55); WHITE BLOOD COUNT 8.3 10^3/uL (4.0-10.5)
[2018-02-11 05:42] LABS: ANION GAP 8 (5-19); BLOOD UREA NITROGEN 12 mg/dL (7-20); CALCIUM 7.9 mg/dL (8.4-10.2); CARBON DIOXIDE 22 mmol/L (22-30); CHLORIDE 109 mmol/L (98-107); GLUCOSE 84 mg/dL (75-110); POTASSIUM 4.2 mmol/L (3.6-5.0); SODIUM 138.5 mmol/L (137-145)
[2018-02-11] MEDS: KETOROLAC TROMETHAMINE INJ/PF 30 MG/1 ML SDV IV PRN ×2 (06:09→17:41)
--- NOTE | 2018-02-11 08:29 | PDOC PROGRESS REPORT ---
Subjective Progress Note for:: 02/11/18 Subjective:: Patient is currently sitting in the chair She does claim he is passing the gas Patient's denied any chest pain denied any shortness of the breath Patient underwent for the wound closure procedure yesterday Start on a clear liquid diet Reason For Visit: ABD PAIN Physical Exam Vital Signs: Temp Pulse Resp BP Pulse Ox 98.6 F 70 17 132/66 H 100 02/11/18 07:40 02/11/18 07:40 02/11/18 07:40 02/11/18 07:40 02/11/18 07:40 Intake & Output 02/10/18 02/11/18 02/12/18 06:59 06:59 06:59 Intake Total 2360 180 Output Total 750 550 Balance 1610 -370 Weight 113.9 kg 113.9 kg General appearance: PRESENT: no acute distress, well-developed, well-nourished Head exam: PRESENT: atraumatic, normocephalic Eye exam: PRESENT: conjunctiva pink, EOMI, PERRLA. ABSENT: scleral icterus Ear exam: PRESENT: normal external ear exam Mouth exam: PRESENT: moist, tongue midline Neck exam: PRESENT: full ROM. ABSENT: carotid bruit, JVD, lymphadenopathy, thyromegaly Respiratory exam: PRESENT: clear to auscultation chadwick Cardiovascular exam: PRESENT: RRR. ABSENT: diastolic murmur, rubs, systolic murmur Pulses: PRESENT: normal dorsalis pedis pul, +2 pedal pulses bilateral Vascular exam: PRESENT: normal capillary refill GI/Abdominal exam: PRESENT: hypoactive bowel sounds. ABSENT: distended, guarding, mass, organolmegaly, rebound, tenderness Additonal comments: Wound VAC is present Rectal exam: PRESENT: deferred Extremities exam: ABSENT: pedal edema Musculoskeletal exam: PRESENT: ambulatory Neurological exam: PRESENT: alert, awake, oriented to person, oriented to place , oriented to time, oriented to situation, CN II-XII grossly intact. ABSENT: motor sensory deficit Psychiatric exam: PRESENT: appropriate affect, normal mood. ABSENT: homicidal ideation, suicidal ideation Skin exam: PRESENT: dry, intact, warm. ABSENT: cyanosis, rash Results Laboratory Results: 02/11/18 04:27 02/11/18 04:27 02/11/18 02/11/18 04:27 04:27 WBC 8.3 RBC 4.14 L Hgb 12.9 L Hct 38.8 MCV 94 MCH 31.2 MCHC 33.3 RDW 15.0 H Plt Count 564 H Sodium 138.5 Potassium 4.2 Chloride 109 H Carbon Dioxide 22 Anion Gap 8 BUN 12 Creatinine 0.78 Est GFR ( Amer) > 60 Est GFR (Non-Af Amer) > 60 Glucose 84 Calcium 7.9 L Impressions: Abdomen/Pelvis CT 02/02/18 00:00 IMPRESSION: Findings worrisome for perforated appendicitis with 3 cm abscess at the appendiceal tip. There is inflammation of the cecum with inflammation in the mesenteric fat along the right iliopsoas region. Chest X-Ray 02/02/18 20:47 IMPRESSION: No acute cardiopulmonary findings. KUB X-Ray 02/10/18 00:00 IMPRESSION: Nonspecific bowel gas pattern likely represents an ileus, with a air filled mildly distended small bowel loops in the mid abdomen, and oral contrast from prior CT exams in the colon on today's study. Assessment & Plan - Diagnosis (1) Diverticulitis large intestine w/o perforation or abscess w/o bleeding Is this a current diagnosis for this admission?: Yes (2) Hypertension Qualifiers: Hypertension type: essential hypertension Qualified Code(s): I10 - Essential (primary) hypertension Is this a current diagnosis for this admission?: Yes Plan: Continues to current medications (3) Pulmonary embolism Qualifiers: Pulmonary embolism type: other Chronicity: chronic Acute cor pulmonale presence: without acute cor pulmonale Qualified Code(s): I27.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 Is this a current diagnosis for this admission?: Yes Plan: Currently on a full dose of Lovenox (4) Neuralgia, post-herpetic Is this a current diagnosis for this admission?: Yes Plan: Continues to gabapentin (5) Acute perforated appendicitis Is this a current diagnosis for this admission?: Yes Plan: Status post surgery currently postop ileus and delayed wound closure currently started on a clear liquid Remove the Owne catheter repeat the urine culture Patient still having difficulty in urination will start the Flomax - Time Time Spent with patient: 15-24 minutes Medications reviewed and adjusted accordingly: Yes Anticipated discharge: SNF Within: Other - Inpatient Certification Medical Necessity: Need Close Monitoring Due to Risk of Patient Decompensation Post Hospital Care: D/C 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
[2018-02-11] MEDS: TIMOLOL MALEATE 0.5% OPH SOLN 5 ML OU SCH ×2 (09:44→17:42)
[2018-02-11] MEDS: AMLODIPINE BESYLATE 5 MG TABLET NG SCH (09:45)
[2018-02-11] MEDS: FAMOTIDINE INJ/PF 20 MG/2 ML SDV IV SCH ×2 (09:45→21:15)
[2018-02-11] MEDS: ENOXAPARIN SODIUM INJ 100 MG/1 ML DISP.SYRIN SUBCUT SCH ×2 (09:46→21:16)
[2018-02-11] MEDS: BRIMONIDINE 0.15% OU SCH ×3 (09:46→17:49)
[2018-02-11] MEDS ORDERED: BISACODYL 10 MG SUPP.RECT PR ONE (11:00)
[2018-02-11] MEDS ORDERED: BISACODYL 10 MG SUPP.RECT PR PRN (13:40)
--- NOTE | 2018-02-11 18:58 | PDOC PROGRESS REPORT ---
Subjective Progress Note for:: 02/11/18 Subjective:: feels fairly comfortable Tolerating clears Reason For Visit: ABD PAIN Physical Exam Vital Signs: Temp Pulse Resp BP Pulse Ox 98.1 F 69 17 134/63 H 99 02/11/18 14:57 02/11/18 14:57 02/11/18 14:57 02/11/18 14:57 02/11/18 14:57 Intake & Output 02/10/18 02/11/18 02/12/18 06:59 06:59 06:59 Intake Total 2360 180 118 Output Total 750 550 Balance 1610 -370 118 Weight 113.9 kg 113.9 kg Exam: Abd slightly distended non tender Results Laboratory Results: 02/11/18 04:27 02/11/18 04:27 02/11/18 02/11/18 04:27 04:27 WBC 8.3 RBC 4.14 L Hgb 12.9 L Hct 38.8 MCV 94 MCH 31.2 MCHC 33.3 RDW 15.0 H Plt Count 564 H Sodium 138.5 Potassium 4.2 Chloride 109 H Carbon Dioxide 22 Anion Gap 8 BUN 12 Creatinine 0.78 Est GFR ( Amer) > 60 Est GFR (Non-Af Amer) > 60 Glucose 84 Calcium 7.9 L Impressions: Abdomen/Pelvis CT 02/02/18 00:00 IMPRESSION: Findings worrisome for perforated appendicitis with 3 cm abscess at the appendiceal tip. There is inflammation of the cecum with inflammation in the mesenteric fat along the right iliopsoas region. Chest X-Ray 02/02/18 20:47 IMPRESSION: No acute cardiopulmonary findings. KUB X-Ray 02/10/18 00:00 IMPRESSION: Nonspecific bowel gas pattern likely represents an ileus, with a air filled mildly distended small bowel loops in the mid abdomen, and oral contrast from prior CT exams in the colon on today's study. Assessment & Plan - Diagnosis (1) Postoperative ileus Is this a current diagnosis for this admission?: Yes - Time Time Spent with patient: 15-24 minutes - Inpatient Certification Medical Necessity: Need Close Monitoring Due to Risk of Patient Decompensation, Need for IV Antibiotics, Risk of Complication if Not Cared For in Hospital - Plan Summary Plan Summary: Continue PT for ambulation Rectal suppository to help with ileus Continue IV antibiotics
[2018-02-11] MEDS: DEXTROSE 5%-1/2 NORMAL SALINE 1,000 ML IV PRN (21:15)
[2018-02-11] MEDS: ONDANSETRON HCL INJ/PF 4 MG/2 ML SDV IV PRN (21:15)
[2018-02-11] MEDS: ACETAMINOPHEN 325 MG TABLET NG PRN (23:38)
[2018-02-12 05:29] LABS: ANION GAP 8 (5-19); BLOOD UREA NITROGEN 8 mg/dL (7-20); CALCIUM 7.5 mg/dL (8.4-10.2); CARBON DIOXIDE 21 mmol/L (22-30); CHLORIDE 108 mmol/L (98-107); GLUCOSE 113 mg/dL (75-110); POTASSIUM 3.7 mmol/L (3.6-5.0); SODIUM 136.8 mmol/L (137-145)
[2018-02-12] MEDS ORDERED: BISACODYL 10 MG SUPP.RECT PR ONE ×3 (09:30→12:45)
--- NOTE | 2018-02-12 10:55 | PDOC PROGRESS REPORT ---
Subjective Progress Note for:: 02/12/18 Subjective:: More comfortable today. Good results with suppository yesterday Reason For Visit: ABD PAIN Physical Exam Vital Signs: Temp Pulse Resp BP Pulse Ox 98.5 F 70 16 112/71 98 02/12/18 08:00 02/12/18 08:00 02/12/18 08:00 02/12/18 08:00 02/12/18 08:00 Intake & Output 02/11/18 02/12/18 02/13/18 06:59 06:59 06:59 Intake Total 1180 218 Output Total 550 Balance 630 218 Weight 113.9 kg 112.9 kg Exam: Abd slightly distended but soft and non tender. Wound Vac in place Results Laboratory Results: 02/11/18 04:27 02/12/18 04:20 02/12/18 04:20 Sodium 136.8 L Potassium 3.7 Chloride 108 H Carbon Dioxide 21 L Anion Gap 8 BUN 8 Creatinine 0.68 Est GFR ( Amer) > 60 Est GFR (Non-Af Amer) > 60 Glucose 113 H Calcium 7.5 L Impressions: Abdomen/Pelvis CT 02/02/18 00:00 IMPRESSION: Findings worrisome for perforated appendicitis with 3 cm abscess at the appendiceal tip. There is inflammation of the cecum with inflammation in the mesenteric fat along the right iliopsoas region. Chest X-Ray 02/02/18 20:47 IMPRESSION: No acute cardiopulmonary findings. KUB X-Ray 02/10/18 00:00 IMPRESSION: Nonspecific bowel gas pattern likely represents an ileus, with a air filled mildly distended small bowel loops in the mid abdomen, and oral contrast from prior CT exams in the colon on today's study. Assessment & Plan - Diagnosis (1) Postoperative ileus Is this a current diagnosis for this admission?: Yes - Time Time Spent with patient: 15-24 minutes - Inpatient Certification Medical Necessity: Need For IV Fluids, Risk of Complication if Not Cared For in Hospital - Plan Summary Plan Summary: No Flatus this am. Try suppository again to help ileus. Continue clears and increase to full liquids if good results with suppository Continue PT ambulation
[2018-02-12] MEDS: FAMOTIDINE INJ/PF 20 MG/2 ML SDV IV SCH ×2 (11:12→21:11)
[2018-02-12] MEDS: AMLODIPINE BESYLATE 5 MG TABLET NG SCH (11:12)
[2018-02-12] MEDS: TAMSULOSIN HCL 0.4 MG CAP.SR.24H PO SCH (11:12)
[2018-02-12] MEDS: ENOXAPARIN SODIUM INJ 100 MG/1 ML DISP.SYRIN SUBCUT SCH (11:14)
[2018-02-12] MEDS: TIMOLOL MALEATE 0.5% OPH SOLN 5 ML OU SCH ×2 (11:16→18:06)
[2018-02-12] MEDS: BRIMONIDINE 0.15% OU SCH ×3 (11:21→18:07)
[2018-02-12] MEDS: DEXTROSE 5%-1/2 NORMAL SALINE 1,000 ML IV PRN ×2 (11:25→23:01)
--- NOTE | 2018-02-12 14:34 | PDOC PROGRESS REPORT ---
Subjective Progress Note for:: 02/12/18 Subjective:: Patient is currently doing fair, positive bowel movement in the passing the gas and start taking the clear liquid diets Patient's feeling very weak Denied any chest pain denied any shortness of the breath Patient seen by the general surgery suggests a suppository and may be increased to full liquid diet Reason For Visit: ABD PAIN Physical Exam Vital Signs: Temp Pulse Resp BP Pulse Ox 98.6 F 68 20 101/66 100 02/12/18 12:00 02/12/18 12:00 02/12/18 12:00 02/12/18 12:00 02/12/18 12:00 Intake & Output 02/11/18 02/12/18 02/13/18 06:59 06:59 06:59 Intake Total 1180 218 992 Output Total 550 Balance 630 218 992 Weight 113.9 kg 112.9 kg General appearance: PRESENT: no acute distress, well-developed, well-nourished Head exam: PRESENT: atraumatic, normocephalic Eye exam: PRESENT: conjunctiva pink, EOMI, PERRLA. ABSENT: scleral icterus Ear exam: PRESENT: normal external ear exam Mouth exam: PRESENT: moist, tongue midline Neck exam: PRESENT: full ROM. ABSENT: carotid bruit, JVD, lymphadenopathy, thyromegaly Respiratory exam: PRESENT: clear to auscultation [place] Cardiovascular exam: PRESENT: RRR. ABSENT: diastolic murmur, rubs, systolic murmur Pulses: PRESENT: normal dorsalis pedis pul, +2 pedal pulses bilateral Vascular exam: PRESENT: normal capillary refill GI/Abdominal exam: PRESENT: hypoactive bowel sounds. ABSENT: distended, guarding, mass, organolmegaly, rebound, tenderness Additonal comments: Surgical dressing is intact Rectal exam: PRESENT: deferred Musculoskeletal exam: PRESENT: ambulatory Neurological exam: PRESENT: alert, awake, oriented to person, oriented to place , oriented to time, oriented to situation, CN II-XII grossly intact. ABSENT: motor sensory deficit Psychiatric exam: PRESENT: appropriate affect, normal mood. ABSENT: homicidal ideation, suicidal ideation Skin exam: PRESENT: dry, intact, warm. ABSENT: cyanosis, rash Results Laboratory Results: 02/11/18 04:27 02/12/18 04:20 02/12/18 04:20 Sodium 136.8 L Potassium 3.7 Chloride 108 H Carbon Dioxide 21 L Anion Gap 8 BUN 8 Creatinine 0.68 Est GFR ( Amer) > 60 Est GFR (Non-Af Amer) > 60 Glucose 113 H Calcium 7.5 L Impressions: Abdomen/Pelvis CT 02/02/18 00:00 IMPRESSION: Findings worrisome for perforated appendicitis with 3 cm abscess at the appendiceal tip. There is inflammation of the cecum with inflammation in the mesenteric fat along the right iliopsoas region. Chest X-Ray 02/02/18 20:47 IMPRESSION: No acute cardiopulmonary findings. KUB X-Ray 02/10/18 00:00 IMPRESSION: Nonspecific bowel gas pattern likely represents an ileus, with a air filled mildly distended small bowel loops in the mid abdomen, and oral contrast from prior CT exams in the colon on today's study. Assessment & Plan - Diagnosis (1) Diverticulitis large intestine w/o perforation or abscess w/o bleeding Is this a current diagnosis for this admission?: Yes (2) Hypertension Qualifiers: Hypertension type: essential hypertension Qualified Code(s): I10 - Essential (primary) hypertension Is this a current diagnosis for this admission?: Yes Plan: Continues to current medications (3) Pulmonary embolism Qualifiers: Pulmonary embolism type: other Chronicity: chronic Acute cor pulmonale presence: without acute cor pulmonale Qualified Code(s): I27.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 Is this a current diagnosis for this admission?: Yes Plan: Currently on a full dose of Lovenox (4) Neuralgia, post-herpetic Is this a current diagnosis for this admission?: Yes Plan: Continues to gabapentin (5) Acute perforated appendicitis Is this a current diagnosis for this admission?: Yes Plan: Status post ileus continues to current medications follow with the surgery - Time Time Spent with patient: 15-24 minutes Medications reviewed and adjusted accordingly: Yes Anticipated discharge: SNF Within: Other - Inpatient Certification Based on my medical assessment, after consideration of the patient's comorbidities, presenting symptoms, or acuity I expect that the services needed warrant INPATIENT care.: Yes I certify that my determination is in accordance with my understanding of Medicare's requirements for reasonable and necessary INPATIENT services [42 CFR 412.3e].: Yes Medical Necessity: Need For IV Fluids, Need for Surgery Post Hospital Care: D/C Rehab Trainer Documentation - Plan Summary Plan Summary: Continues to current medication
[2018-02-12] MEDS: ONDANSETRON HCL INJ/PF 4 MG/2 ML SDV IV PRN (16:16)
[2018-02-13] MEDS: ACETAMINOPHEN 325 MG TABLET NG PRN ×2 (00:44→07:44)
[2018-02-13 04:45] LABS: HEMATOCRIT 33.2 % (37.9-51.0); HEMOGLOBIN 11.3 g/dL (13.5-17.0); MEAN CORPUSCULAR HEMOGLOBIN 31.4 pg (27.0-33.4); MEAN CORPUSCULAR HGB CONC 34.1 g/dL (32.0-36.0); MEAN CORPUSCULAR VOLUME 92 fl (80-97); PLATELET COUNT 513 10^3/uL (150-450); RED CELL DISTRIBUTION WIDTH 14.7 % (11.5-14.0); WHITE BLOOD COUNT 5.6 10^3/uL (4.0-10.5)
[2018-02-13 05:14] LABS: ANION GAP 9 (5-19); BLOOD UREA NITROGEN 4 mg/dL (7-20); CALCIUM 7.5 mg/dL (8.4-10.2); CARBON DIOXIDE 20 mmol/L (22-30); CHLORIDE 107 mmol/L (98-107); GLUCOSE 111 mg/dL (75-110); POTASSIUM 3.7 mmol/L (3.6-5.0); SODIUM 136.1 mmol/L (137-145)
--- NOTE | 2018-02-13 09:29 | RADIOLOGY REPORT (SQ) ---
EXAM DESCRIPTION: CT ABD/PELVIS NO ORAL OR IV COMPLETED DATE/TIME: 02/13/2018 9:14 am REASON FOR STUDY: abd pain COMPARISON: 02/02/2018 TECHNIQUE: CT scan of the abdomen and pelvis performed without intravenous contrast. Oral contrast was given. Images reviewed with lung, soft tissue, and bone windows. Reconstructed coronal and sagit izaiah MPR images reviewed. All images stored on PACS. All CT scanners at this facility use dose modulation, iterative reconstruction, and/or weight based d osing when appropriate to reduce radiation dose to as low as reasonably achievable (ALARA). [facility]: Dose Right [facility]: CareDose [facility]: Dose Right [facility]: Teradose 4D [facility]: Smart Enecsys RADIATION DOSE: CT Rad equipment meets quality standard of care and radiation dose reduction techniq ues were employed. CTDIvol: 14.7 mGy. DLP: 846 mGy-cm.mGy. LIMITATIONS: None. FINDINGS: LOWER CHEST: Small bilateral pleural effusions. NON-CONTRASTED LIVER, SPLEEN, ADRENALS: Evaluation limited by lack of IV contrast. No identified sign ificant masses. PANCREAS: No masses. No peripancreatic inflammatory changes. GALLBLADDER: No identified stones by CT criteria. No inflammatory changes to suggest cholecystitis. RIGHT KIDNEY AND URETER: No suspicious masses. Assessment limited by lack of IV contrast. No signif icant calcifications. No hydronephrosis or hydroureter. LEFT KIDNEY AND URETER: No suspicious masses. Assessment limited by lack of IV contrast. No signifi cant calcifications. No hydronephrosis or hydroureter. AORTA AND RETROPERITONEUM: No aneurysm. No retroperitoneal masses or adenopathy. BOWEL AND PERITONEAL CAVITY: There is contrast throughout nondilated colon. Diverticulosis sigmoid c olon. There are gas fluid levels within mildly dilated loops of small bowel with gas fluid levels. No clear transition. Small amount of ascites. No free air. APPENDIX: Not visualized. PELVIS, BLADDER, AND ABDOMINAL WALL:Owen catheter in urinary bladder. BONES: No acute findings. OTHER: No other significant finding. IMPRESSION: 1. Ileus or partial small bowel obstruction. 2. Sigmoid diverticulosis. Small amount of ascites. 3. Small pleural effusions. COMMENT: Quality ID # [id number]: Final reports with documentation of one or more dose reduction techniques (e.g., Automated exposure control, adjustment of the mA and/or kV according to patient size, use of iterative reconstruction technique) TECHNICAL DOCUMENTATION: JOB ID: [id number] [email or web address] / [employer]- All Rights Reserved Reading location - IP/workstation name: [email or web address]
[2018-02-13] MEDS ORDERED: CEFTRIAXONE 1 GM/D5W RTU 1 GM/50 ML RTUPB IV SCH (10:00)
[2018-02-13] MEDS: AMLODIPINE BESYLATE 5 MG TABLET NG SCH (10:16)
[2018-02-13] MEDS: TIMOLOL MALEATE 0.5% OPH SOLN 5 ML OU SCH ×2 (10:16→17:13)
[2018-02-13] MEDS: TAMSULOSIN HCL 0.4 MG CAP.SR.24H PO SCH (10:16)
[2018-02-13] MEDS: FAMOTIDINE INJ/PF 20 MG/2 ML SDV IV SCH ×2 (10:16→21:33)
[2018-02-13] MEDS: CEFEPIME 1 GM/D5W RTU 1 GM/50 ML RTUPB IV SCH ×2 (10:17→21:33)
[2018-02-13] MEDS: BRIMONIDINE 0.15% OU SCH ×3 (10:21→17:14)
--- NOTE | 2018-02-13 10:34 | RADIOLOGY REPORT (SQ) ---
EXAM DESCRIPTION: VENOUS BILATERAL LOWER COMPLETED DATE/TIME: 02/13/2018 10:26 am REASON FOR STUDY: h/o dvt COMPARISON: None. TECHNIQUE: Dynamic and static wadsworth scale and color images acquired of both lower extremity venous sy stems. Selected spectral images acquired with additional compression and augmentation maneuvers. Imag es stored on PACS. LIMITATIONS: None. FINDINGS: RIGHT LEG COMMON FEMORAL AND FEMORAL: Normal phasicity, compression and augmentation. No visualized echogenic m aterial on wadsworth scale. No defects on color images. POPLITEAL: Normal compression and augmentation. No visualized echogenic material on wadsworth scale. No de fects on color images. CALF VESSELS: Normal compression and augmentation. No visualized echogenic material on wadsworth scale. No defects on color image. GSV AND SSV: Normal compression. No visualized echogenic material on wadsworth scale. No defects on color images. ANY DEEP VENOUS INSUFFICIENCY: Not evaluated. ANY EVIDENCE OF POPLITEAL CYST: No. OTHER: No other significant finding. LEFT LEG COMMON FEMORAL AND FEMORAL: Normal phasicity, compression and augmentation. No visualized echogenic m aterial on wadsworth scale. No defects on color images. POPLITEAL: Normal compression and augmentation. No visualized echogenic material on wadsworth scale. No de fects on color images. CALF VESSELS: Normal compression and augmentation. No visualized echogenic material on wadsworth scale. No defects on color images. GSV AND SSV: Normal compression. No visualized echogenic material on wadsworth scale. No defects on color images. ANY DEEP VENOUS INSUFFICIENCY: Not evaluated. ANY EVIDENCE POPLITEAL CYST: No. OTHER: No other significant finding. IMPRESSION: NO EVIDENCE DVT OR SVT IN EITHER LEG. TECHNICAL DOCUMENTATION: JOB ID: [id number] [email or web address]- All Rights Reserved Reading location - IP/workstation name: [email or web address]
[2018-02-13 10:42] LABS: BILIRUBIN,URINE NEGATIVE (NEGATIVE); GLUCOSE, URINE NEGATIVE (NEGATIVE); KETONES,URINE NEGATIVE (NEGATIVE); LEUKOCYTE ESTERASE,URINE NEGATIVE (NEGATIVE); NITRITE,URINE NEGATIVE (NEGATIVE); PROTEIN,URINE >=500 mg/dL (NEGATIVE); URINE SPECIFIC GRAVITY 1.015; UROBILINOGEN,URINE NEGATIVE mg/dL (<2.0)
[2018-02-13 10:43] LABS: APPEARANCE,URINE TURBID; COLOR,URINE RED
[2018-02-13] MEDS: FUROSEMIDE INJ/PF 20 MG/2 ML SDV IV SCH ×2 (11:35→21:33)
--- NOTE | 2018-02-13 13:20 | PDOC PROGRESS REPORT ---
Subjective Progress Note for:: 02/13/18 Subjective:: When I saw the patient in the morning was complaining of very abdominal discomfort especially in the lower abdomen and the patient was put the Owen catheter where almost more than 600 cc urine came out before the Owen catheter patient's white the 400 ccAnd patient have a some blood tinge color Patient was on the Lovenox because of the history of the PVD and recently not able to move much. By the general surgery yesterday Patient was some swelling in the lower extremity and upper extremity ultrasound venous was negative for any DVT most likely related to the fluid She had a CT scan of the abdomen and pelvis was done which showed ileus versus partial small bowel obstructions discussed with the Dr. Diamond general surgery Patient's was given start Lasix IV reduce the IV fluid patient is currently able to take the p.o. intake with some clear liquids Patient's denied any chest pain denied any shortness of the breath Patient still very weak Reason For Visit: ABD PAIN Physical Exam Vital Signs: Temp Pulse Resp BP Pulse Ox 98.4 F 68 18 114/62 100 02/13/18 12:00 02/13/18 12:00 02/13/18 12:00 02/13/18 12:00 02/13/18 12:00 Intake & Output 02/12/18 02/13/18 02/14/18 06:59 06:59 06:59 Intake Total 218 2604 Balance 218 2604 Weight 112.9 kg 114.7 kg General appearance: PRESENT: no acute distress, well-developed, well-nourished Head exam: PRESENT: atraumatic, normocephalic Eye exam: PRESENT: conjunctiva pink, EOMI, PERRLA. ABSENT: scleral icterus Ear exam: PRESENT: normal external ear exam Mouth exam: PRESENT: moist, tongue midline Neck exam: PRESENT: full ROM. ABSENT: carotid bruit, JVD, lymphadenopathy, thyromegaly Respiratory exam: PRESENT: clear to auscultation [place] Cardiovascular exam: PRESENT: RRR. ABSENT: diastolic murmur, rubs, systolic murmur Pulses: PRESENT: normal dorsalis pedis pul, +2 pedal pulses bilateral Vascular exam: PRESENT: normal capillary refill GI/Abdominal exam: PRESENT: hypoactive bowel sounds, soft. ABSENT: distended, guarding, mass, organolmegaly, rebound, tenderness Additonal comments: Wound VAC is present dressing is intact and a Owen catheter was placed with some blood tinge urine color is present Rectal exam: PRESENT: deferred Extremities exam: PRESENT: pedal edema Musculoskeletal exam: PRESENT: ambulatory Neurological exam: PRESENT: alert, awake, oriented to person, oriented to place , oriented to time, oriented to situation, CN II-XII grossly intact. ABSENT: motor sensory deficit Psychiatric exam: PRESENT: appropriate affect, normal mood. ABSENT: homicidal ideation, suicidal ideation Skin exam: PRESENT: dry, intact, warm. ABSENT: cyanosis, rash Results Laboratory Results: 02/13/18 03:53 02/13/18 03:53 02/13/18 02/13/18 02/13/18 03:53 03:53 10:05 WBC 5.6 RBC 3.60 L Hgb 11.3 L Hct 33.2 L MCV 92 MCH 31.4 MCHC 34.1 RDW 14.7 H Plt Count 513 H Sodium 136.1 L Potassium 3.7 Chloride 107 Carbon Dioxide 20 L Anion Gap 9 BUN 4 L Creatinine 0.69 Est GFR ( Amer) > 60 Est GFR (Non-Af Amer) > 60 Glucose 111 H Calcium 7.5 L Urine Color RED Urine Appearance TURBID Urine pH 6.0 Ur Specific [place] 1.015 Urine Protein >=500 H Urine Glucose (UA) NEGATIVE Urine Ketones NEGATIVE Urine Blood LARGE H Urine Nitrite NEGATIVE Ur Leukocyte Esterase NEGATIVE Urine WBC (Auto) >182 Urine RBC (Auto) >182 Impressions: Chest X-Ray 02/02/18 20:47 IMPRESSION: No acute cardiopulmonary findings. KUB X-Ray 02/10/18 00:00 IMPRESSION: Nonspecific bowel gas pattern likely represents an ileus, with a air filled mildly distended small bowel loops in the mid abdomen, and oral contrast from prior CT exams in the colon on today's study. Abdomen/Pelvis CT 02/13/18 00:00 IMPRESSION: 1. Ileus or partial small bowel obstruction. 2. Sigmoid diverticulosis. Small amount of ascites. 3. Small pleural effusions. Venous Doppler Study 02/13/18 00:00 IMPRESSION: NO EVIDENCE DVT OR SVT IN EITHER LEG. Assessment & Plan - Diagnosis (1) Hypertension Qualifiers: Hypertension type: essential hypertension Qualified Code(s): I10 - Essential (primary) hypertension Is this a current diagnosis for this admission?: Yes Plan: Continues to current medications (2) Pulmonary embolism Qualifiers: Pulmonary embolism type: other Chronicity: chronic Acute cor pulmonale presence: without acute cor pulmonale Qualified Code(s): I27.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 Is this a current diagnosis for this admission?: Yes Plan: Currently hold the anticoagulations when ultrasound is negative due to the hematuria (3) Neuralgia, post-herpetic Is this a current diagnosis for this admission?: Yes Plan: Continues to gabapentin (4) Acute perforated appendicitis Is this a current diagnosis for this admission?: Yes Plan: Status post surgery status post ileus repeat CT scans discussed with the Dr. Diamond he will follow (5) Hematuria Qualifiers: Hematuria type: unspecified type Qualified Code(s): R31.9 - Hematuria, unspecified Is this a current diagnosis for this admission?: Yes Plan: Will currently hold the anticoagulations continues to IV fluid and continues to antibiotics send the urine for the culture patient is already put on the Flomax There is no urology on-call available in the hospital will continues to monitor the CBC If it is not getting better in next 24 hours need a urology service evaluations (6) UTI (urinary tract infection), bacterial Is this a current diagnosis for this admission?: Yes Plan: Will send the urine for the culture and start the patient on IV cefepime (7) Generalized weakness Is this a current diagnosis for this admission?: Yes Plan: Get the physical therapy and possible rehab - Time Time Spent with patient: 35 or more minutes Medications reviewed and adjusted accordingly: Yes Anticipated discharge: SNF Within: Other - Inpatient Certification Medical Necessity: Need Close Monitoring Due to Risk of Patient Decompensation, Need for IV Antibiotics Post Hospital Care: D/C Harm Reduction Worker Documentation - Plan Summary Plan Summary: Very extensive discussed with the patient and the patient's I think granddaughter on the bedside regarding the patient's current condition and discussed that with the general surgery Patients of a very slow progress after surgery postop ileus Patient also developed some hematuria unfortunately patients unable to take the anticoagulation Patient's ultrasound is negative for DVT We will start the patient on the Lasix for the next 48 hours and switch to the p.o. Lasix due to the fluid positive balance Patients have a multiple issue at this point's will continues close monitor
[2018-02-13] MEDS ORDERED: ONDANSETRON HCL INJ/PF 4 MG/2 ML SDV IV PRN ×2 (14:43→14:53)
[2018-02-13] MEDS ORDERED: MORPHINE SULFATE 10 MG/ML INJ IV PRN (14:53)
[2018-02-13] MEDS: DEXTROSE 5%-1/2 NORMAL SALINE 1,000 ML IV PRN (16:35)
[2018-02-13 18:06] LABS: ABSOLUTE EOSINOPHILS # (AUTO) 0.1 10^3/uL (0.0-0.6); ABSOLUTE LYMPHOCYTES (AUTO) 0.8 10^3/uL (0.5-4.7); ABSOLUTE MONOCYTES (AUTO) 1.2 10^3/uL (0.1-1.4); ABSOLUTE NEUT (AUTO) 5.4 10^3/uL (1.7-8.2); BASOPHILS % (AUTO) 0.6 % (0-2); EOSINOPHILS % (AUTO) 1.5 % (0-6); HEMATOCRIT 36.7 % (37.9-51.0); HEMOGLOBIN 12.6 g/dL (13.5-17.0); LYMPHOCYTES % (AUTO) 10.1 % (13-45); MEAN CORPUSCULAR HEMOGLOBIN 31.4 pg (27.0-33.4); MEAN CORPUSCULAR HGB CONC 34.3 g/dL (32.0-36.0); MEAN CORPUSCULAR VOLUME 92 fl (80-97); MONOCYTES % (AUTO) 15.4 % (3-13); PLATELET COUNT 637 10^3/uL (150-450); RED BLOOD COUNT 4.01 10^6/uL (4.35-5.55); RED CELL DISTRIBUTION WIDTH 14.7 % (11.5-14.0); SEGMENTED NEUTROPHILS % (AUTO) 72.4 % (42-78); TOTAL CELLS COUNTED % (AUTO) 100 %; WHITE BLOOD COUNT 7.5 10^3/uL (4.0-10.5)
[2018-02-13 18:58] LABS: BLOOD UREA NITROGEN 4 mg/dL (7-20); CALCIUM 8.1 mg/dL (8.4-10.2); GLUCOSE 125 mg/dL (75-110)
[2018-02-13 19:14] LABS: CARBON DIOXIDE 25 mmol/L (22-30); CHLORIDE 105 mmol/L (98-107); POTASSIUM 3.8 mmol/L (3.6-5.0); SODIUM 138.7 mmol/L (137-145)
[2018-02-13 19:22] LABS: ANION GAP 9 (5-19)
--- NOTE | 2018-02-13 19:22 | PDOC PROGRESS REPORT ---
Subjective Progress Note for:: 02/13/18 Subjective:: Denies abdominal pains. No flatus Berry placed. Just voide 400 ccs then another 400ccs from berry Urine is lightly blood tinged. Off Lovenox Reason For Visit: ABD PAIN Physical Exam Vital Signs: Temp Pulse Resp BP Pulse Ox 98.9 F 75 16 124/69 99 02/13/18 14:03 02/13/18 14:03 02/13/18 14:03 02/13/18 14:03 02/13/18 14:03 Intake & Output 02/12/18 02/13/18 02/14/18 06:59 06:59 06:59 Intake Total 218 2604 1050 Output Total 1950 Balance 218 2604 -900 Weight 112.9 kg 114.7 kg Exam: abd is distended but non tender. CT scan today showed ileus vs partial SBO He just had SBFT with gastrograffin and awaiting official reading. Vomitted 300 ccs of greenish fluid when came back from XRAY for SBFT Results Laboratory Results: 02/13/18 17:49 02/13/18 02/13/18 02/13/18 03:53 03:53 10:05 WBC 5.6 RBC 3.60 L Hgb 11.3 L Hct 33.2 L MCV 92 MCH 31.4 MCHC 34.1 RDW 14.7 H Plt Count 513 H Seg Neutrophils % Lymphocytes % Monocytes % Eosinophils % Basophils % Absolute Neutrophils Absolute Lymphocytes Absolute Monocytes Absolute Eosinophils Absolute Basophils Sodium 136.1 L Potassium 3.7 Chloride 107 Carbon Dioxide 20 L Anion Gap 9 BUN 4 L Creatinine 0.69 Est GFR ( Amer) > 60 Est GFR (Non-Af Amer) > 60 Glucose 111 H Calcium 7.5 L Urine Color RED Urine Appearance TURBID Urine pH 6.0 Ur Specific [place] 1.015 Urine Protein >=500 H Urine Glucose (UA) NEGATIVE Urine Ketones NEGATIVE Urine Blood LARGE H Urine Nitrite NEGATIVE Ur Leukocyte Esterase NEGATIVE Urine WBC (Auto) >182 Urine RBC (Auto) >182 02/13/18 17:49 WBC 7.5 RBC 4.01 L Hgb 12.6 L Hct 36.7 L MCV 92 MCH 31.4 MCHC 34.3 RDW 14.7 H Plt Count 637 H Seg Neutrophils % 72.4 Lymphocytes % 10.1 L Monocytes % 15.4 H Eosinophils % 1.5 Basophils % 0.6 Absolute Neutrophils 5.4 Absolute Lymphocytes 0.8 Absolute Monocytes 1.2 Absolute Eosinophils 0.1 Absolute Basophils 0.0 Sodium Potassium Chloride Carbon Dioxide Anion Gap BUN Creatinine Est GFR ( Amer) Est GFR (Non-Af Amer) Glucose Calcium Urine Color Urine Appearance Urine pH Ur Specific [place] Urine Protein Urine Glucose (UA) Urine Ketones Urine Blood Urine Nitrite Ur Leukocyte Esterase Urine WBC (Auto) Urine RBC (Auto) Impressions: Chest X-Ray 02/02/18 20:47 IMPRESSION: No acute cardiopulmonary findings. KUB X-Ray 02/10/18 00:00 IMPRESSION: Nonspecific bowel gas pattern likely represents an ileus, with a air filled mildly distended small bowel loops in the mid abdomen, and oral contrast from prior CT exams in the colon on today's study. Abdomen/Pelvis CT 02/13/18 00:00 IMPRESSION: 1. Ileus or partial small bowel obstruction. 2. Sigmoid diverticulosis. Small amount of ascites. 3. Small pleural effusions. Venous Doppler Study 02/13/18 00:00 IMPRESSION: NO EVIDENCE DVT OR SVT IN EITHER LEG. Assessment & Plan - Diagnosis (1) Postoperative ileus Is this a current diagnosis for this admission?: Yes - Time Time Spent with patient: 25-34 minutes - Inpatient Certification Medical Necessity: Need For IV Fluids, Need for IV Antibiotics, Risk of Complication if Not Cared For in Hospital - Plan Summary Plan Summary: Has persistent ileus. Doubt bowel obstruction NGT for now since he just vomitted. May need TPN. Talked to the family this morning about placing central line so TPN can be started. They would like to hold off since patient apparently tolerating some clear liquids. PMD has ordered IV antibiotics for UTI
--- NOTE | 2018-02-13 19:57 | RADIOLOGY REPORT (SQ) ---
EXAM DESCRIPTION: SMALL BOWEL SERIES COMPLETED DATE/TIME: 02/13/2018 7:45 pm REASON FOR STUDY: check site of possible obstruction, use gasrograff COMPARISON: CT abdomen and pelvis 01/30/2018, 02/02/2018, 02/13/2018 Abdominal films 02/08/2018, 02/10/2018 FLUOROSCOPY TIME: No fluoroscopy 9 KUB images saved to PACS. LIMITATIONS: None. PROCEDURE: Initial drop count associate image of abdomen acquired, followed by administration of oral contrast. Se rial radiographic images acquired. Fluoroscopic images recorded of the terminal ileum and other catherine cated areas. All images stored on PACS. FINDINGS: Extension Course Coordinator film demonstrates diffuse gaseous distension of small bowel out of proportion to col on. Oral contrast given for prior CT exams seen in the colon in a nonobstructive pattern. Patient was given Gastrografin orally. Area was intermittent gastroesophageal reflux. Slow gastric emptying with minimal duodenum all contrast at 30 minutes. Sequential films up to 6 hours was performed. On the 6 hour films, Gastrografin is present in the st omach small bowel colon and rectum. There is persistent distention of stomach and small bowel. IMPRESSION: At 0600 hours, oral contrast is seen throughout the gastrointestinal tract down to the r ectum. There is distention of the stomach and small bowel out of proportion to colon. This could re present an ileus rather than a distal small bowel obstruction. Follow-up KUB in the morning may be u seful. COMMENT: Quality ID [id number]: Final reports for procedures using fluoroscopy that document radiation exp osure indices, or exposure time and number of fluorographic images (if radiation exposure indices are not available) TECHNICAL DOCUMENTATION: JOB ID: [id number] [employer]- All Rights Reserved Reading location - IP/workstation name: [email or web address]
--- NOTE | 2018-02-13 20:55 | PDOC PROGRESS REPORT ---
Subjective Progress Note for:: 02/13/18 Subjective:: Had BM tonite.Hungry Reason For Visit: ABD PAIN Physical Exam Vital Signs: Temp Pulse Resp BP Pulse Ox 98.8 F 74 18 124/66 99 02/13/18 18:37 02/13/18 18:37 02/13/18 18:37 02/13/18 18:37 02/13/18 18:37 Intake & Output 02/12/18 02/13/18 02/14/18 06:59 06:59 06:59 Intake Total 218 2604 1050 Output Total 1950 Balance 218 2604 -900 Weight 112.9 kg 114.7 kg Exam: abd soft and less distended. Results Laboratory Results: 02/13/18 17:49 02/13/18 17:49 02/13/18 02/13/18 02/13/18 03:53 03:53 10:05 WBC 5.6 RBC 3.60 L Hgb 11.3 L Hct 33.2 L MCV 92 MCH 31.4 MCHC 34.1 RDW 14.7 H Plt Count 513 H Seg Neutrophils % Lymphocytes % Monocytes % Eosinophils % Basophils % Absolute Neutrophils Absolute Lymphocytes Absolute Monocytes Absolute Eosinophils Absolute Basophils Sodium 136.1 L Potassium 3.7 Chloride 107 Carbon Dioxide 20 L Anion Gap 9 BUN 4 L Creatinine 0.69 Est GFR ( Amer) > 60 Est GFR (Non-Af Amer) > 60 Glucose 111 H Calcium 7.5 L Urine Color RED Urine Appearance TURBID Urine pH 6.0 Ur Specific [place] 1.015 Urine Protein >=500 H Urine Glucose (UA) NEGATIVE Urine Ketones NEGATIVE Urine Blood LARGE H Urine Nitrite NEGATIVE Ur Leukocyte Esterase NEGATIVE Urine WBC (Auto) >182 Urine RBC (Auto) >182 02/13/18 02/13/18 17:49 17:49 WBC 7.5 RBC 4.01 L Hgb 12.6 L Hct 36.7 L MCV 92 MCH 31.4 MCHC 34.3 RDW 14.7 H Plt Count 637 H Seg Neutrophils % 72.4 Lymphocytes % 10.1 L Monocytes % 15.4 H Eosinophils % 1.5 Basophils % 0.6 Absolute Neutrophils 5.4 Absolute Lymphocytes 0.8 Absolute Monocytes 1.2 Absolute Eosinophils 0.1 Absolute Basophils 0.0 Sodium 138.7 Potassium 3.8 Chloride 105 Carbon Dioxide 25 Anion Gap 9 BUN 4 L Creatinine 0.74 Est GFR ( Amer) > 60 Est GFR (Non-Af Amer) > 60 Glucose 125 H Calcium 8.1 L Urine Color Urine Appearance Urine pH Ur Specific [place] Urine Protein Urine Glucose (UA) Urine Ketones Urine Blood Urine Nitrite Ur Leukocyte Esterase Urine WBC (Auto) Urine RBC (Auto) Impressions: Chest X-Ray 02/02/18 20:47 IMPRESSION: No acute cardiopulmonary findings. KUB X-Ray 02/10/18 00:00 IMPRESSION: Nonspecific bowel gas pattern likely represents an ileus, with a air filled mildly distended small bowel loops in the mid abdomen, and oral contrast from prior CT exams in the colon on today's study. Abdomen/Pelvis CT 02/13/18 00:00 IMPRESSION: 1. Ileus or partial small bowel obstruction. 2. Sigmoid diverticulosis. Small amount of ascites. 3. Small pleural effusions. Small Bowel X-Ray 02/13/18 00:00 IMPRESSION: At 0600 hours, oral contrast is seen throughout the gastrointestinal tract down to the rectum. There is distention of the stomach and small bowel out of proportion to colon. This could represent an ileus rather than a distal small bowel obstruction. Follow-up KUB in the morning may be useful. Venous Doppler Study 02/13/18 00:00 IMPRESSION: NO EVIDENCE DVT OR SVT IN EITHER LEG. Assessment & Plan - Diagnosis (1) Postoperative ileus Is this a current diagnosis for this admission?: Yes - Time Time Spent with patient: 15-24 minutes - Inpatient Certification Medical Necessity: Need For IV Fluids, Need for IV Antibiotics, Risk of Complication if Not Cared For in Hospital - Plan Summary Plan Summary: Hold NGT Resume clear liquids
[2018-02-14] MEDS: DEXTROSE 5%-1/2 NORMAL SALINE 1,000 ML IV PRN ×2 (03:31→12:28)
[2018-02-14 05:34] LABS: ABSOLUTE EOSINOPHILS # (AUTO) 0.1 10^3/uL (0.0-0.6); ABSOLUTE LYMPHOCYTES (AUTO) 1.4 10^3/uL (0.5-4.7); ABSOLUTE MONOCYTES (AUTO) 1.2 10^3/uL (0.1-1.4); ABSOLUTE NEUT (AUTO) 5.3 10^3/uL (1.7-8.2); BASOPHILS % (AUTO) 0.6 % (0-2); EOSINOPHILS % (AUTO) 1.1 % (0-6); HEMATOCRIT 34.7 % (37.9-51.0); HEMOGLOBIN 11.8 g/dL (13.5-17.0); LYMPHOCYTES % (AUTO) 17.7 % (13-45); MEAN CORPUSCULAR HEMOGLOBIN 31.2 pg (27.0-33.4); MEAN CORPUSCULAR HGB CONC 33.9 g/dL (32.0-36.0); MEAN CORPUSCULAR VOLUME 92 fl (80-97); MONOCYTES % (AUTO) 15.4 % (3-13); PLATELET COUNT 654 10^3/uL (150-450); RED BLOOD COUNT 3.77 10^6/uL (4.35-5.55); RED CELL DISTRIBUTION WIDTH 14.7 % (11.5-14.0); SEGMENTED NEUTROPHILS % (AUTO) 65.2 % (42-78); TOTAL CELLS COUNTED % (AUTO) 100 %; WHITE BLOOD COUNT 8.1 10^3/uL (4.0-10.5)
[2018-02-14 05:57] LABS: ANION GAP 7 (5-19); BLOOD UREA NITROGEN 4 mg/dL (7-20); CALCIUM 7.9 mg/dL (8.4-10.2); CARBON DIOXIDE 26 mmol/L (22-30); CHLORIDE 105 mmol/L (98-107); GLUCOSE 117 mg/dL (75-110); POTASSIUM 3.9 mmol/L (3.6-5.0); SODIUM 137.7 mmol/L (137-145)
[2018-02-14] MEDS: TIMOLOL MALEATE 0.5% OPH SOLN 5 ML OU SCH ×2 (10:13→18:40)
[2018-02-14] MEDS: AMLODIPINE BESYLATE 5 MG TABLET NG SCH (10:15)
[2018-02-14] MEDS: FAMOTIDINE INJ/PF 20 MG/2 ML SDV IV SCH ×2 (10:15→21:19)
[2018-02-14] MEDS: FUROSEMIDE INJ/PF 20 MG/2 ML SDV IV SCH ×2 (10:16→21:19)
[2018-02-14] MEDS: TAMSULOSIN HCL 0.4 MG CAP.SR.24H PO SCH (10:16)
[2018-02-14] MEDS: CEFEPIME 1 GM/D5W RTU 1 GM/50 ML RTUPB IV SCH ×2 (10:16→21:17)
[2018-02-14] MEDS: BRIMONIDINE 0.15% OU SCH ×3 (10:23→18:55)
--- NOTE | 2018-02-14 12:00 | PDOC CONSULTATION ---
Consultation Consult Date: 02/14/18 Attending physician:: YVON STANTON Consult reason:: PE History of Present Illness Admission Date/PCP: 01/30/18 03:33 YVON STANTON MD Patient complains of: PE History of Present Illness: EMELI DAMON is a 77 year old male with recent admission for perforated appendix, postop ileus, infection, prolonged healing postoperative. Has history of PE, unprovoked, and 05/2017, was admitted to [facility] for this. He was treated thus far with Xarelto. Over the last few days , he is developed hematuria, so anticoagulation has been held, and we have been asked to give her opinion on the persistent need for chronic anticoagulation in his setting. Past Medical History Cardiac Medical History: Reports: Hypertension Denies: Coronary Artery Disease, Myocardial Infarction Pulmonary Medical History: Reports: Asthma Denies: Bronchitis, Chronic Obstructive Pulmonary Disease (COPD), Pneumonia Neurological Medical History: Denies: Seizures Musculoskeltal Medical History: Denies: Arthritis Hematology: Denies: Anemia Hematology History Note: Pulmonary embolism Past Surgical History Past Surgical History: Reports: Appendectomy Social History Information Source: Patient Smoking Status: Former Smoker Frequency of Alcohol Use: Occasional Hx Recreational Drug Use: No Hx Prescription Drug Abuse: No - Advance Directive Resuscitation Status: Full Code Family History Family History: Reviewed & Not Pertinent Parental Family History Reviewed: Yes Children Family History Reviewed: Yes Sibling(s) Family History Reviewed.: Yes Medication/Allergy Home Medications: Amlodipine Besylate [Norvasc 5 mg Tablet] 5 mg PO DAILY 01/30/18 Ergocalciferol (Vitamin D2) [Vitamin D2] 50,000 unit PO MO@1000 01/30/18 Rivaroxaban [Xarelto] 20 mg PO DAILY 01/30/18 Sildenafil Citrate [Viagra] 50 mg PO DAILYP PRN 01/30/18 Timolol Maleate [Timoptic 0.5% Oph Soln 5 ml] 1 drop OU BID 01/30/18 Brimonidine Tartrate [Alphagan P] 1 drp OU TID 02/09/18 Allergies/Adverse Reactions: No Known Allergies Allergy (Verified 05/19/15 09:19) Review of Systems Constitutional: ABSENT: chills, fever(s), headache(s), weight gain, weight loss Eyes: ABSENT: visual disturbances Ears: ABSENT: hearing changes Cardiovascular: ABSENT: chest pain, dyspnea on exertion, edema, orthropnea, palpitations Respiratory: ABSENT: cough, hemoptysis Gastrointestinal: ABSENT: abdominal pain, constipation, diarrhea, hematemesis, hematochezia, nausea, vomiting Genitourinary: ABSENT: dysuria, hematuria Musculoskeletal: ABSENT: joint swelling Integumentary: ABSENT: rash, wounds Neurological: ABSENT: abnormal gait, abnormal speech, confusion, dizziness, focal weakness, syncope Psychiatric: ABSENT: anxiety, depression, homidical ideation, suicidal ideation Endocrine: ABSENT: cold intolerance, heat intolerance, polydipsia, polyuria Hematologic/Lymphatic: ABSENT: easy bleeding, easy bruising Physical Exam Vital Signs: Temp Pulse Resp BP Pulse Ox 98.0 F 78 18 113/54 L 98 02/14/18 08:00 02/14/18 08:00 02/14/18 08:00 02/14/18 08:00 02/14/18 08:00 Intake & Output 02/13/18 02/14/18 02/15/18 06:59 06:59 06:59 Intake Total 2604 1647 Output Total 2650 Balance 2604 -1003 Weight 114.7 kg 105.4 kg General appearance: PRESENT: no acute distress, well-developed, well-nourished Head exam: PRESENT: atraumatic, normocephalic Eye exam: PRESENT: conjunctiva pink, EOMI, PERRLA. ABSENT: scleral icterus Ear exam: PRESENT: normal external ear exam Mouth exam: PRESENT: moist, tongue midline Neck exam: ABSENT: carotid bruit, JVD, lymphadenopathy, thyromegaly Respiratory exam: PRESENT: clear to auscultation [place]. ABSENT: rales, rhonchi, wheezes Cardiovascular exam: PRESENT: RRR. ABSENT: diastolic murmur, rubs, systolic murmur Pulses: PRESENT: normal dorsalis pedis pul Vascular exam: PRESENT: normal capillary refill GI/Abdominal exam: PRESENT: normal bowel sounds, soft. ABSENT: distended, guarding, mass, organolmegaly, rebound, tenderness Rectal exam: PRESENT: deferred Extremities exam: PRESENT: full ROM. ABSENT: calf tenderness, clubbing, pedal edema Neurological exam: PRESENT: alert, awake, oriented to person, oriented to place , oriented to time, oriented to situation, CN II-XII grossly intact. ABSENT: motor sensory deficit Psychiatric exam: PRESENT: appropriate affect, normal mood. ABSENT: homicidal ideation, suicidal ideation Skin exam: PRESENT: dry, intact, warm. ABSENT: cyanosis, rash Results Laboratory Results: 02/14/18 04:18 02/14/18 04:18 02/13/18 02/13/18 02/13/18 17:49 17:49 20:40 WBC 7.5 RBC 4.01 L Hgb 12.6 L Hct 36.7 L MCV 92 MCH 31.4 MCHC 34.3 RDW 14.7 H Plt Count 637 H Seg Neutrophils % 72.4 Lymphocytes % 10.1 L Monocytes % 15.4 H Eosinophils % 1.5 Basophils % 0.6 Absolute Neutrophils 5.4 Absolute Lymphocytes 0.8 Absolute Monocytes 1.2 Absolute Eosinophils 0.1 Absolute Basophils 0.0 Sodium 138.7 Potassium 3.8 Chloride 105 Carbon Dioxide 25 Anion Gap 9 BUN 4 L Creatinine 0.74 Est GFR ( Amer) > 60 Est GFR (Non-Af Amer) > 60 Glucose 125 H Calcium 8.1 L Magnesium Stool Occult Blood NEGATIVE 02/14/18 02/14/18 04:18 04:18 WBC 8.1 RBC 3.77 L Hgb 11.8 L Hct 34.7 L MCV 92 MCH 31.2 MCHC 33.9 RDW 14.7 H Plt Count 654 H Seg Neutrophils % 65.2 Lymphocytes % 17.7 Monocytes % 15.4 H Eosinophils % 1.1 Basophils % 0.6 Absolute Neutrophils 5.3 Absolute Lymphocytes 1.4 Absolute Monocytes 1.2 Absolute Eosinophils 0.1 Absolute Basophils 0.0 Sodium 137.7 Potassium 3.9 Chloride 105 Carbon Dioxide 26 Anion Gap 7 BUN 4 L Creatinine 0.81 Est GFR ( Amer) > 60 Est GFR (Non-Af Amer) > 60 Glucose 117 H Calcium 7.9 L Magnesium 2.2 Stool Occult Blood Impressions: Chest X-Ray 02/02/18 20:47 IMPRESSION: No acute cardiopulmonary findings. KUB X-Ray 02/10/18 00:00 IMPRESSION: Nonspecific bowel gas pattern likely represents an ileus, with a air filled mildly distended small bowel loops in the mid abdomen, and oral contrast from prior CT exams in the colon on today's study. Abdomen/Pelvis CT 02/13/18 00:00 IMPRESSION: 1. Ileus or partial small bowel obstruction. 2. Sigmoid diverticulosis. Small amount of ascites. 3. Small pleural effusions. Small Bowel X-Ray 02/13/18 00:00 IMPRESSION: At 0600 hours, oral contrast is seen throughout the gastrointestinal tract down to the rectum. There is distention of the stomach and small bowel out of proportion to colon. This could represent an ileus rather than a distal small bowel obstruction. Follow-up KUB in the morning may be useful. Venous Doppler Study 02/13/18 00:00 IMPRESSION: NO EVIDENCE DVT OR SVT IN EITHER LEG. Assessment & Plan - Diagnosis (1) Pulmonary embolism Qualifiers: Pulmonary embolism type: other Chronicity: chronic Acute cor pulmonale presence: without acute cor pulmonale Qualified Code(s): I27.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 Is this a current diagnosis for this admission?: Yes Plan: Patient with history of unprovoked pulmonary embolism, although he does have some elevated risk of repeat thrombosis, I believe his risk of bleeding in the next 4-6 weeks would outweigh the benefit from preventing thrombotic events. He has been treated fully for 6 months, so has completed a full treatment for unprovoked pulmonary embolism. So I agree with discontinuing anticoagulation completely, currently there is no known thrombosis in the bilateral lower extremity, we generally would not be routinely checking for residual PE, so I do not believe we have to do any sort of CT of the chest to look for pulmonary embolism. So this point discontinue anticoagulation. - Time Time Spent: 50 to 70 Minutes - Inpatient Certification Based on my medical assessment, after consideration of the patient's comorbidities, presenting symptoms, or acuity I expect that the services needed warrant INPATIENT care.: Yes I certify that my determination is in accordance with my understanding of Medicare's requirements for reasonable and necessary INPATIENT services [42 CFR 412.3e].: Yes Medical Necessity: Risk of Complication if Not Cared For in Hospital
--- NOTE | 2018-02-14 14:36 | PDOC PROGRESS REPORT ---
Subjective Progress Note for:: 02/14/18 Reason For Visit: ABD PAIN Physical Exam Vital Signs: Temp Pulse Resp BP Pulse Ox 98.0 F 71 16 98/61 L 100 02/14/18 12:00 02/14/18 12:00 02/14/18 12:00 02/14/18 12:00 02/14/18 12:00 Intake & Output 02/13/18 02/14/18 02/15/18 06:59 06:59 06:59 Intake Total 2604 1647 448 Output Total 2650 Balance 2604 -1003 448 Weight 114.7 kg 105.4 kg Results Laboratory Results: 02/14/18 04:18 02/14/18 04:18 02/13/18 02/13/18 02/13/18 17:49 17:49 20:40 WBC 7.5 RBC 4.01 L Hgb 12.6 L Hct 36.7 L MCV 92 MCH 31.4 MCHC 34.3 RDW 14.7 H Plt Count 637 H Seg Neutrophils % 72.4 Lymphocytes % 10.1 L Monocytes % 15.4 H Eosinophils % 1.5 Basophils % 0.6 Absolute Neutrophils 5.4 Absolute Lymphocytes 0.8 Absolute Monocytes 1.2 Absolute Eosinophils 0.1 Absolute Basophils 0.0 Sodium 138.7 Potassium 3.8 Chloride 105 Carbon Dioxide 25 Anion Gap 9 BUN 4 L Creatinine 0.74 Est GFR ( Amer) > 60 Est GFR (Non-Af Amer) > 60 Glucose 125 H Calcium 8.1 L Magnesium Stool Occult Blood NEGATIVE 02/14/18 02/14/18 04:18 04:18 WBC 8.1 RBC 3.77 L Hgb 11.8 L Hct 34.7 L MCV 92 MCH 31.2 MCHC 33.9 RDW 14.7 H Plt Count 654 H Seg Neutrophils % 65.2 Lymphocytes % 17.7 Monocytes % 15.4 H Eosinophils % 1.1 Basophils % 0.6 Absolute Neutrophils 5.3 Absolute Lymphocytes 1.4 Absolute Monocytes 1.2 Absolute Eosinophils 0.1 Absolute Basophils 0.0 Sodium 137.7 Potassium 3.9 Chloride 105 Carbon Dioxide 26 Anion Gap 7 BUN 4 L Creatinine 0.81 Est GFR ( Amer) > 60 Est GFR (Non-Af Amer) > 60 Glucose 117 H Calcium 7.9 L Magnesium 2.2 Stool Occult Blood Impressions: Chest X-Ray 02/02/18 20:47 IMPRESSION: No acute cardiopulmonary findings. KUB X-Ray 02/10/18 00:00 IMPRESSION: Nonspecific bowel gas pattern likely represents an ileus, with a air filled mildly distended small bowel loops in the mid abdomen, and oral contrast from prior CT exams in the colon on today's study. Abdomen/Pelvis CT 02/13/18 00:00 IMPRESSION: 1. Ileus or partial small bowel obstruction. 2. Sigmoid diverticulosis. Small amount of ascites. 3. Small pleural effusions. Small Bowel X-Ray 02/13/18 00:00 IMPRESSION: At 0600 hours, oral contrast is seen throughout the gastrointestinal tract down to the rectum. There is distention of the stomach and small bowel out of proportion to colon. This could represent an ileus rather than a distal small bowel obstruction. Follow-up KUB in the morning may be useful. Venous Doppler Study 02/13/18 00:00 IMPRESSION: NO EVIDENCE DVT OR SVT IN EITHER LEG. Assessment & Plan - Diagnosis (1) Acute perforated appendicitis Is this a current diagnosis for this admission?: Yes - Plan Summary Plan Summary: This is a 77-year-old male status post laparotomy for perforated appendicitis. The patient looks much improved today. He is sitting at the bedside, in a chair. The patient reports multiple bowel movements through last night and this morning. Patient denies nausea or vomiting. I will advance the patient to a full liquid diet. I will also order Ensure 3 times daily. Have encouraged him to get out of bed and ambulate. He should also continue with an aggressive pulmonary toilet. Recent x-rays have shown movement of contrast through the small intestine and into the colon, consistent with an ileus pattern. We will continue to monitor closely. The patient's care was discussed with his daughter today. Discharge planning.
--- NOTE | 2018-02-14 18:11 | PDOC PROGRESS REPORT ---
Subjective Progress Note for:: 02/14/18 Subjective:: Patient seen by the bedside, he complained of lower swelling and pain Reason For Visit: ABD PAIN Physical Exam Vital Signs: Temp Pulse Resp BP Pulse Ox 98.1 F 66 20 118/51 L 100 02/14/18 15:39 02/14/18 15:39 02/14/18 15:39 02/14/18 15:39 02/14/18 15:39 Intake & Output 02/13/18 02/14/18 02/15/18 06:59 06:59 06:59 Intake Total 2604 1647 448 Output Total 2650 Balance 2604 -1003 448 Weight 114.7 kg 105.4 kg General appearance: PRESENT: no acute distress Eye exam: PRESENT: PERRLA Respiratory exam: PRESENT: clear to auscultation [place] Cardiovascular exam: PRESENT: +S1, +S2 GI/Abdominal exam: PRESENT: soft Extremities exam: PRESENT: pedal edema Neurological exam: PRESENT: alert Results Laboratory Results: 02/14/18 04:18 02/14/18 04:18 02/13/18 02/13/18 02/13/18 17:49 17:49 20:40 WBC 7.5 RBC 4.01 L Hgb 12.6 L Hct 36.7 L MCV 92 MCH 31.4 MCHC 34.3 RDW 14.7 H Plt Count 637 H Seg Neutrophils % 72.4 Lymphocytes % 10.1 L Monocytes % 15.4 H Eosinophils % 1.5 Basophils % 0.6 Absolute Neutrophils 5.4 Absolute Lymphocytes 0.8 Absolute Monocytes 1.2 Absolute Eosinophils 0.1 Absolute Basophils 0.0 Sodium 138.7 Potassium 3.8 Chloride 105 Carbon Dioxide 25 Anion Gap 9 BUN 4 L Creatinine 0.74 Est GFR ( Amer) > 60 Est GFR (Non-Af Amer) > 60 Glucose 125 H Calcium 8.1 L Magnesium Stool Occult Blood NEGATIVE 02/14/18 02/14/18 04:18 04:18 WBC 8.1 RBC 3.77 L Hgb 11.8 L Hct 34.7 L MCV 92 MCH 31.2 MCHC 33.9 RDW 14.7 H Plt Count 654 H Seg Neutrophils % 65.2 Lymphocytes % 17.7 Monocytes % 15.4 H Eosinophils % 1.1 Basophils % 0.6 Absolute Neutrophils 5.3 Absolute Lymphocytes 1.4 Absolute Monocytes 1.2 Absolute Eosinophils 0.1 Absolute Basophils 0.0 Sodium 137.7 Potassium 3.9 Chloride 105 Carbon Dioxide 26 Anion Gap 7 BUN 4 L Creatinine 0.81 Est GFR ( Amer) > 60 Est GFR (Non-Af Amer) > 60 Glucose 117 H Calcium 7.9 L Magnesium 2.2 Stool Occult Blood Impressions: Chest X-Ray 02/02/18 20:47 IMPRESSION: No acute cardiopulmonary findings. KUB X-Ray 02/10/18 00:00 IMPRESSION: Nonspecific bowel gas pattern likely represents an ileus, with a air filled mildly distended small bowel loops in the mid abdomen, and oral contrast from prior CT exams in the colon on today's study. Abdomen/Pelvis CT 02/13/18 00:00 IMPRESSION: 1. Ileus or partial small bowel obstruction. 2. Sigmoid diverticulosis. Small amount of ascites. 3. Small pleural effusions. Small Bowel X-Ray 02/13/18 00:00 IMPRESSION: At 0600 hours, oral contrast is seen throughout the gastrointestinal tract down to the rectum. There is distention of the stomach and small bowel out of proportion to colon. This could represent an ileus rather than a distal small bowel obstruction. Follow-up KUB in the morning may be useful. Venous Doppler Study 02/13/18 00:00 IMPRESSION: NO EVIDENCE DVT OR SVT IN EITHER LEG. Assessment & Plan - Diagnosis (1) Diverticulitis large intestine w/o perforation or abscess w/o bleeding Is this a current diagnosis for this admission?: Yes (2) Hypertension Qualifiers: Hypertension type: essential hypertension Qualified Code(s): I10 - Essential (primary) hypertension Is this a current diagnosis for this admission?: Yes (3) Neuralgia, post-herpetic Is this a current diagnosis for this admission?: Yes (4) Pulmonary embolism Qualifiers: Pulmonary embolism type: other Chronicity: chronic Acute cor pulmonale presence: without acute cor pulmonale Qualified Code(s): I27.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 Is this a current diagnosis for this admission?: Yes (5) Acute perforated appendicitis Is this a current diagnosis for this admission?: Yes
[2018-02-15 05:57] LABS: ANION GAP 5 (5-19); BLOOD UREA NITROGEN 4 mg/dL (7-20); CALCIUM 7.8 mg/dL (8.4-10.2); CARBON DIOXIDE 26 mmol/L (22-30); CHLORIDE 105 mmol/L (98-107); GLUCOSE 107 mg/dL (75-110); POTASSIUM 3.4 mmol/L (3.6-5.0); SODIUM 136.1 mmol/L (137-145)
[2018-02-15] MEDS: FUROSEMIDE INJ/PF 20 MG/2 ML SDV IV SCH ×2 (09:29→22:35)
[2018-02-15] MEDS: FAMOTIDINE INJ/PF 20 MG/2 ML SDV IV SCH ×2 (09:30→22:38)
[2018-02-15] MEDS: CEFEPIME 1 GM/D5W RTU 1 GM/50 ML RTUPB IV SCH ×2 (09:30→22:40)
[2018-02-15] MEDS: TAMSULOSIN HCL 0.4 MG CAP.SR.24H PO SCH (09:30)
[2018-02-15] MEDS: AMLODIPINE BESYLATE 5 MG TABLET NG SCH (09:30)
[2018-02-15] MEDS: TIMOLOL MALEATE 0.5% OPH SOLN 5 ML OU SCH ×2 (09:30→18:32)
[2018-02-15] MEDS: BRIMONIDINE 0.15% OU SCH ×3 (09:32→19:05)
[2018-02-15] MEDS: DEXTROSE 5%-1/2 NORMAL SALINE 1,000 ML IV PRN (11:32)
--- NOTE | 2018-02-15 16:57 | PDOC PROGRESS REPORT ---
Subjective Progress Note for:: 02/15/18 Subjective:: Patient seen by the bedside, he complained of lower swelling and pain Reason For Visit: ABD PAIN Physical Exam Vital Signs: Temp Pulse Resp BP Pulse Ox 98.6 F 67 14 117/59 L 100 02/15/18 12:00 02/15/18 12:00 02/15/18 12:00 02/15/18 12:00 02/15/18 12:00 Intake & Output 02/14/18 02/15/18 02/16/18 06:59 06:59 06:59 Intake Total 1647 1008 1000 Output Total 2650 2650 Balance -1003 -1642 1000 Weight 105.4 kg 106.2 kg General appearance: PRESENT: no acute distress Eye exam: PRESENT: PERRLA Respiratory exam: PRESENT: rhonchi Cardiovascular exam: PRESENT: +S1, +S2 GI/Abdominal exam: PRESENT: soft Results Laboratory Results: 02/14/18 04:18 02/15/18 03:52 02/15/18 03:52 Sodium 136.1 L Potassium 3.4 L Chloride 105 Carbon Dioxide 26 Anion Gap 5 BUN 4 L Creatinine 0.73 Est GFR ( Amer) > 60 Est GFR (Non-Af Amer) > 60 Glucose 107 Calcium 7.8 L 02/13/18 10:05 Owen Catheter Urine Culture - Final Mixed Urogenital [place]oxanna Impressions: Chest X-Ray 02/02/18 20:47 IMPRESSION: No acute cardiopulmonary findings. KUB X-Ray 02/10/18 00:00 IMPRESSION: Nonspecific bowel gas pattern likely represents an ileus, with a air filled mildly distended small bowel loops in the mid abdomen, and oral contrast from prior CT exams in the colon on today's study. Abdomen/Pelvis CT 02/13/18 00:00 IMPRESSION: 1. Ileus or partial small bowel obstruction. 2. Sigmoid diverticulosis. Small amount of ascites. 3. Small pleural effusions. Small Bowel X-Ray 02/13/18 00:00 IMPRESSION: At 0600 hours, oral contrast is seen throughout the gastrointestinal tract down to the rectum. There is distention of the stomach and small bowel out of proportion to colon. This could represent an ileus rather than a distal small bowel obstruction. Follow-up KUB in the morning may be useful. Venous Doppler Study 02/13/18 00:00 IMPRESSION: NO EVIDENCE DVT OR SVT IN EITHER LEG. Assessment & Plan - Diagnosis (1) Diverticulitis large intestine w/o perforation or abscess w/o bleeding Is this a current diagnosis for this admission?: Yes (2) Hypertension Qualifiers: Hypertension type: essential hypertension Qualified Code(s): I10 - Essential (primary) hypertension Is this a current diagnosis for this admission?: Yes (3) Neuralgia, post-herpetic Is this a current diagnosis for this admission?: Yes (4) Pulmonary embolism Qualifiers: Pulmonary embolism type: other Chronicity: chronic Acute cor pulmonale presence: without acute cor pulmonale Qualified Code(s): I27.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 Is this a current diagnosis for this admission?: Yes (5) Acute perforated appendicitis Is this a current diagnosis for this admission?: Yes
[2018-02-15] MEDS ORDERED: CEFEPIME 1 GM/D5W RTU 1 GM/50 ML RTUPB IV ONE ×2 (22:34→22:45)
[2018-02-16 06:01] LABS: HEMATOCRIT 30.2 % (37.9-51.0); HEMOGLOBIN 10.7 g/dL (13.5-17.0); MEAN CORPUSCULAR HEMOGLOBIN 32.1 pg (27.0-33.4); MEAN CORPUSCULAR HGB CONC 35.4 g/dL (32.0-36.0); MEAN CORPUSCULAR VOLUME 91 fl (80-97); PLATELET COUNT 478 10^3/uL (150-450); RED BLOOD COUNT 3.33 10^6/uL (4.35-5.55); RED CELL DISTRIBUTION WIDTH 14.6 % (11.5-14.0); WHITE BLOOD COUNT 6.2 10^3/uL (4.0-10.5)
[2018-02-16 06:27] LABS: ANION GAP 7 (5-19); BLOOD UREA NITROGEN 4 mg/dL (7-20); CALCIUM 8.3 mg/dL (8.4-10.2); CARBON DIOXIDE 27 mmol/L (22-30); CHLORIDE 105 mmol/L (98-107); GLUCOSE 98 mg/dL (75-110); POTASSIUM 3.5 mmol/L (3.6-5.0)
[2018-02-16] MEDS: DEXTROSE 5%-1/2 NORMAL SALINE 1,000 ML IV PRN (06:38)
[2018-02-16] MEDS ORDERED: POTASSIUM CHLORIDE 10 MEQ CAPSULE.ER PO ONE (08:24)
--- NOTE | 2018-02-16 09:15 | PDOC PROGRESS REPORT ---
Subjective Progress Note for:: 02/16/18 Reason For Visit: ABD PAIN Patient did get up and ambulate over the weekend; Owen catheter came out this morning, patient feels like he needs to void. He is tolerating a diet. Physical Exam Vital Signs: Temp Pulse Resp BP Pulse Ox 98.9 F 80 16 116/62 97 02/16/18 08:00 02/16/18 08:00 02/16/18 08:00 02/16/18 08:00 02/16/18 08:00 Intake & Output 02/15/18 02/16/18 02/17/18 06:59 06:59 06:59 Intake Total 1008 2891 Output Total 2650 3300 Balance -1642 -409 Weight 106.2 kg 110.7 kg General appearance: PRESENT: no acute distress GI/Abdominal exam: PRESENT: other - Slightly distended; Infraumbilical approximated in several areas consistent with delayed primary closure; open areas granulating. Results Laboratory Results: 02/16/18 05:37 02/16/18 05:37 02/16/18 02/16/18 05:37 05:37 WBC 6.2 RBC 3.33 L Hgb 10.7 L Hct 30.2 L MCV 91 MCH 32.1 MCHC 35.4 RDW 14.6 H Plt Count 478 H Sodium 139.0 Potassium 3.5 L Chloride 105 Carbon Dioxide 27 Anion Gap 7 BUN 4 L Creatinine 0.73 Est GFR ( Amer) > 60 Est GFR (Non-Af Amer) > 60 Glucose 98 Calcium 8.3 L 02/13/18 10:05 Owen Catheter Urine Culture - Final Mixed Urogenital Roxanna Impressions: Chest X-Ray 02/02/18 20:47 IMPRESSION: No acute cardiopulmonary findings. KUB X-Ray 02/10/18 00:00 IMPRESSION: Nonspecific bowel gas pattern likely represents an ileus, with a air filled mildly distended small bowel loops in the mid abdomen, and oral contrast from prior CT exams in the colon on today's study. Abdomen/Pelvis CT 02/13/18 00:00 IMPRESSION: 1. Ileus or partial small bowel obstruction. 2. Sigmoid diverticulosis. Small amount of ascites. 3. Small pleural effusions. Small Bowel X-Ray 02/13/18 00:00 IMPRESSION: At 0600 hours, oral contrast is seen throughout the gastrointestinal tract down to the rectum. There is distention of the stomach and small bowel out of proportion to colon. This could represent an ileus rather than a distal small bowel obstruction. Follow-up KUB in the morning may be useful. Venous Doppler Study 02/13/18 00:00 IMPRESSION: NO EVIDENCE DVT OR SVT IN EITHER LEG. Assessment & Plan - Diagnosis (1) Acute perforated appendicitis Is this a current diagnosis for this admission?: Yes Plan: Impression: 2-week status post laparoscopic conversion to open appendectomy, slow return of GI function now succeeding Recommendations: 1. Local wound care with nursing staff; 2. Patient has chronic urinary retention, likely related to BPH; patient may have occult lower urinary tract pathology. Patient deserves a urologic evaluation 3. Discussed above with Dr. Cash (3) Hypertension Qualifiers: Hypertension type: essential hypertension Qualified Code(s): I10 - Essential (primary) hypertension Is this a current diagnosis for this admission?: Yes (4) Neuralgia, post-herpetic Is this a current diagnosis for this admission?: Yes (5) Pulmonary embolism Qualifiers: Pulmonary embolism type: other Chronicity: chronic Acute cor pulmonale presence: without acute cor pulmonale Qualified Code(s): I27.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 Is this a current diagnosis for this admission?: Yes
--- NOTE | 2018-02-16 09:26 | PDOC PROGRESS REPORT ---
Subjective Progress Note for:: 02/16/18 Subjective:: Patient is currently doing fair pt able to eat with a full liquid soft diet And has a some more loose stools and also have passing the gas Patient's Owen catheter was removed this morning Patient have a no blood in the urine Patient is having no fever no chills Patient's abdominal pain is much improved Seen by the Dr. Blancas and myself in the room Examined the patient's examined the wound Discussed with the family and the bedside Reason For Visit: ABD PAIN Physical Exam Vital Signs: Temp Pulse Resp BP Pulse Ox 98.9 F 80 16 116/62 97 02/16/18 08:00 02/16/18 08:00 02/16/18 08:00 02/16/18 08:00 02/16/18 08:00 Intake & Output 02/15/18 02/16/18 02/17/18 06:59 06:59 06:59 Intake Total 1008 2891 Output Total 2650 3300 Balance -1642 -409 Weight 106.2 kg 110.7 kg General appearance: PRESENT: no acute distress, well-developed, well-nourished Head exam: PRESENT: atraumatic, normocephalic Eye exam: PRESENT: conjunctiva pink, EOMI, PERRLA. ABSENT: scleral icterus Ear exam: PRESENT: normal external ear exam Mouth exam: PRESENT: moist, tongue midline Neck exam: PRESENT: full ROM. ABSENT: carotid bruit, JVD, lymphadenopathy, thyromegaly Respiratory exam: PRESENT: clear to auscultation [place]adwick Cardiovascular exam: PRESENT: RRR. ABSENT: diastolic murmur, rubs, systolic murmur Pulses: PRESENT: normal dorsalis pedis pul, +2 pedal pulses bilateral Vascular exam: PRESENT: normal capillary refill GI/Abdominal exam: PRESENT: normal bowel sounds, soft. ABSENT: distended, guarding, mass, organolmegaly, rebound, tenderness Additonal comments: The wound is healing Rectal exam: PRESENT: deferred Extremities exam: PRESENT: pedal edema Neurological exam: PRESENT: alert, awake, oriented to person, oriented to place , oriented to time, oriented to situation, CN II-XII grossly intact. ABSENT: motor sensory deficit Psychiatric exam: PRESENT: appropriate affect, normal mood. ABSENT: homicidal ideation, suicidal ideation Skin exam: PRESENT: dry, intact, warm. ABSENT: cyanosis, rash Results Laboratory Results: 02/16/18 05:37 02/16/18 05:37 02/16/18 02/16/18 05:37 05:37 WBC 6.2 RBC 3.33 L Hgb 10.7 L Hct 30.2 L MCV 91 MCH 32.1 MCHC 35.4 RDW 14.6 H Plt Count 478 H Sodium 139.0 Potassium 3.5 L Chloride 105 Carbon Dioxide 27 Anion Gap 7 BUN 4 L Creatinine 0.73 Est GFR ( Amer) > 60 Est GFR (Non-Af Amer) > 60 Glucose 98 Calcium 8.3 L 02/13/18 10:05 Owen Catheter Urine Culture - Final Mixed Urogenital Roxanna Impressions: Chest X-Ray 02/02/18 20:47 IMPRESSION: No acute cardiopulmonary findings. KUB X-Ray 02/10/18 00:00 IMPRESSION: Nonspecific bowel gas pattern likely represents an ileus, with a air filled mildly distended small bowel loops in the mid abdomen, and oral contrast from prior CT exams in the colon on today's study. Abdomen/Pelvis CT 02/13/18 00:00 IMPRESSION: 1. Ileus or partial small bowel obstruction. 2. Sigmoid diverticulosis. Small amount of ascites. 3. Small pleural effusions. Small Bowel X-Ray 02/13/18 00:00 IMPRESSION: At 0600 hours, oral contrast is seen throughout the gastrointestinal tract down to the rectum. There is distention of the stomach and small bowel out of proportion to colon. This could represent an ileus rather than a distal small bowel obstruction. Follow-up KUB in the morning may be useful. Venous Doppler Study 02/13/18 00:00 IMPRESSION: NO EVIDENCE DVT OR SVT IN EITHER LEG. Assessment & Plan - Diagnosis (1) Hypertension Qualifiers: Hypertension type: essential hypertension Qualified Code(s): I10 - Essential (primary) hypertension Is this a current diagnosis for this admission?: Yes Plan: Continues to current medications (2) Pulmonary embolism Qualifiers: Pulmonary embolism type: other Chronicity: chronic Acute cor pulmonale presence: without acute cor pulmonale Qualified Code(s): I27.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 Is this a current diagnosis for this admission?: Yes Plan: Is currently off the anticoagulations with patient ultrasound was all negative (3) Neuralgia, post-herpetic Is this a current diagnosis for this admission?: Yes Plan: Continues to gabapentin (4) Acute perforated appendicitis Is this a current diagnosis for this admission?: Yes Plan: Currently slowly improving discussed with the surgery (5) Hematuria Qualifiers: Hematuria type: unspecified type Qualified Code(s): R31.9 - Hematuria, unspecified Is this a current diagnosis for this admission?: Yes Plan: Will continues the Flomax and add the finasteride unfortunately no urologist available Owen catheter was out this morning patient unable to be patients was discharged with the Owen catheter and follow outpatients urology (6) UTI (urinary tract infection), bacterial Is this a current diagnosis for this admission?: Yes Plan: Will send the urine for the culture and start the patient on IV cefepime (7) Generalized weakness Is this a current diagnosis for this admission?: Yes Plan: Patients need a physical therapy evaluations - Time Time Spent with patient: 15-24 minutes Medications reviewed and adjusted accordingly: Yes Anticipated discharge: Other Within: Other - Inpatient Certification Based on my medical assessment, after consideration of the patient's comorbidities, presenting symptoms, or acuity I expect that the services needed warrant INPATIENT care.: Yes I certify that my determination is in accordance with my understanding of Medicare's requirements for reasonable and necessary INPATIENT services [42 CFR 412.3e].: Yes Medical Necessity: Need for IV Antibiotics Post Hospital Care: D/C Hospital Corpsman Documentation - Plan Summary Plan Summary: Will replace the potassiums DC the IV fluid reduce the Lasix continues to physical therapy
[2018-02-16] MEDS: FINASTERIDE 5 MG TABLET PO SCH (09:33)
[2018-02-16] MEDS: FAMOTIDINE 20 MG TABLET PO SCH ×2 (09:34→22:53)
[2018-02-16] MEDS: AMLODIPINE BESYLATE 5 MG TABLET NG SCH (09:34)
[2018-02-16] MEDS: TAMSULOSIN HCL 0.4 MG CAP.SR.24H PO SCH (09:34)
[2018-02-16] MEDS: CEFEPIME 1 GM/D5W RTU 1 GM/50 ML RTUPB IV SCH ×2 (09:38→22:53)
[2018-02-16] MEDS: TIMOLOL MALEATE 0.5% OPH SOLN 5 ML OU SCH ×2 (09:39→17:51)
[2018-02-16] MEDS: BRIMONIDINE 0.15% OU SCH ×3 (09:49→17:51)
[2018-02-16] MEDS ORDERED: FUROSEMIDE INJ/PF 20 MG/2 ML SDV IV SCH (10:00)
[2018-02-16] MEDS ORDERED: ACETAMINOPHEN 325 MG TABLET PO PRN (14:30)
[2018-02-17 05:03] LABS: BLOOD UREA NITROGEN 9 mg/dL (7-20); CALCIUM 8.2 mg/dL (8.4-10.2); CARBON DIOXIDE 28 mmol/L (22-30); CHLORIDE 106 mmol/L (98-107); GLUCOSE 97 mg/dL (75-110); POTASSIUM 3.6 mmol/L (3.6-5.0); SODIUM 137.2 mmol/L (137-145)
[2018-02-17 05:08] LABS: ANION GAP 3 (5-19)
--- NOTE | 2018-02-17 09:11 | PDOC PROGRESS REPORT ---
Subjective Progress Note for:: 02/17/18 Subjective:: Patient is currently doing much better Patient's to void the urine without any problems Patient is denied any abdominal pain no nausea no vomiting Patients tolerate food without any problems Patient's according to the surgery is okay to discharge Discussed with the senior oracle soa developer and suggest no need for anticoagulations continues to ambulatory Reason For Visit: ABD PAIN Physical Exam Vital Signs: Temp Pulse Resp BP Pulse Ox 99.0 F 73 18 123/58 L 98 02/17/18 07:32 02/17/18 07:32 02/17/18 07:32 02/17/18 07:32 02/17/18 07:32 Intake & Output 02/16/18 02/17/18 02/18/18 06:59 06:59 06:59 Intake Total 2891 1416 Output Total 3300 1565 Balance -409 -149 Weight 110.7 kg 100 kg General appearance: PRESENT: no acute distress, well-developed, well-nourished Head exam: PRESENT: atraumatic, normocephalic Eye exam: PRESENT: conjunctiva pink, EOMI, PERRLA. ABSENT: scleral icterus Ear exam: PRESENT: normal external ear exam Mouth exam: PRESENT: moist, tongue midline Neck exam: PRESENT: full ROM. ABSENT: carotid bruit, JVD, lymphadenopathy, thyromegaly Respiratory exam: PRESENT: clear to auscultation [place] Cardiovascular exam: PRESENT: RRR. ABSENT: diastolic murmur, rubs, systolic murmur Pulses: PRESENT: normal dorsalis pedis pul, +2 pedal pulses bilateral Vascular exam: PRESENT: normal capillary refill GI/Abdominal exam: PRESENT: normal bowel sounds, soft. ABSENT: distended, guarding, mass, organolmegaly, rebound, tenderness Additonal comments: Wound is clean and dry Rectal exam: PRESENT: deferred Musculoskeletal exam: PRESENT: ambulatory Neurological exam: PRESENT: alert, awake, oriented to person, oriented to place , oriented to time, oriented to situation, CN II-XII grossly intact. ABSENT: motor sensory deficit Psychiatric exam: PRESENT: appropriate affect, normal mood. ABSENT: homicidal ideation, suicidal ideation Skin exam: PRESENT: dry, intact, warm. ABSENT: cyanosis, rash Results Laboratory Results: 02/16/18 05:37 02/17/18 04:23 02/17/18 04:23 Sodium 137.2 Potassium 3.6 Chloride 106 Carbon Dioxide 28 Anion Gap 3 L BUN 9 Creatinine 0.75 Est GFR ( Amer) > 60 Est GFR (Non-Af Amer) > 60 Glucose 97 Calcium 8.2 L Impressions: Chest X-Ray 02/02/18 20:47 IMPRESSION: No acute cardiopulmonary findings. KUB X-Ray 02/10/18 00:00 IMPRESSION: Nonspecific bowel gas pattern likely represents an ileus, with a air filled mildly distended small bowel loops in the mid abdomen, and oral contrast from prior CT exams in the colon on today's study. Abdomen/Pelvis CT 02/13/18 00:00 IMPRESSION: 1. Ileus or partial small bowel obstruction. 2. Sigmoid diverticulosis. Small amount of ascites. 3. Small pleural effusions. Small Bowel X-Ray 02/13/18 00:00 IMPRESSION: At 0600 hours, oral contrast is seen throughout the gastrointestinal tract down to the rectum. There is distention of the stomach and small bowel out of proportion to colon. This could represent an ileus rather than a distal small bowel obstruction. Follow-up KUB in the morning may be useful. Venous Doppler Study 02/13/18 00:00 IMPRESSION: NO EVIDENCE DVT OR SVT IN EITHER LEG. Assessment & Plan - Diagnosis (1) Hypertension Qualifiers: Hypertension type: essential hypertension Qualified Code(s): I10 - Essential (primary) hypertension Is this a current diagnosis for this admission?: Yes Plan: Continues to current medications (2) Pulmonary embolism Qualifiers: Pulmonary embolism type: other Chronicity: chronic Acute cor pulmonale presence: without acute cor pulmonale Qualified Code(s): I27.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 Is this a current diagnosis for this admission?: Yes Plan: Patient's ultrasound for the venous Doppler is all negative's patient is not Indicated any anticoagulations due to the recent hematuria (3) Neuralgia, post-herpetic Is this a current diagnosis for this admission?: Yes Plan: Continues to gabapentin (4) Acute perforated appendicitis Is this a current diagnosis for this admission?: Yes Plan: Currently slowly improving discussed with the surgery (5) Hematuria Qualifiers: Hematuria type: unspecified type Qualified Code(s): R31.9 - Hematuria, unspecified Is this a current diagnosis for this admission?: Yes Plan: Currently all resolved (6) UTI (urinary tract infection), bacterial Is this a current diagnosis for this admission?: Yes Plan: Currently all resolved (7) Generalized weakness Is this a current diagnosis for this admission?: Yes Plan: Patients need a physical therapy evaluations - Time Time Spent with patient: 15-24 minutes Medications reviewed and adjusted accordingly: Yes Anticipated discharge: SNF Within: within 24 hours - Inpatient Certification Based on my medical assessment, after consideration of the patient's comorbidities, presenting symptoms, or acuity I expect that the services needed warrant INPATIENT care.: Yes I certify that my determination is in accordance with my understanding of Medicare's requirements for reasonable and necessary INPATIENT services [42 CFR 412.3e].: Yes Medical Necessity: Need Close Monitoring Due to Risk of Patient Decompensation Post Hospital Care: D/C Polysomnography Technologist Documentation - Plan Summary Plan Summary: Patient is currently doing stable discharge the patient's to the nursing facilities
[2018-02-17] MEDS: FINASTERIDE 5 MG TABLET PO SCH (10:39)
[2018-02-17] MEDS: TAMSULOSIN HCL 0.4 MG CAP.SR.24H PO SCH (10:39)
[2018-02-17] MEDS: AMLODIPINE BESYLATE 5 MG TABLET PO SCH (10:39)
[2018-02-17] MEDS: FAMOTIDINE 20 MG TABLET PO SCH ×2 (10:39→21:38)
[2018-02-17] MEDS: TIMOLOL MALEATE 0.5% OPH SOLN 5 ML OU SCH ×2 (10:40→17:33)
[2018-02-17] MEDS: BRIMONIDINE 0.15% OU SCH ×3 (10:41→17:39)
--- NOTE | 2018-02-17 13:35 | PDOC PROGRESS REPORT ---
Subjective Progress Note for:: 02/17/18 Subjective:: comfortable, Tolerating soft diet.Has BM and voiding on his own without discomfort Incision partially closed with sutures . Interval areas between surures with good granulation tissue D/W Dr Cash. For possible discharge tomorrow to Rehab. May cover incision with a layer of xeroform gauze daily Reason For Visit: ABD PAIN Physical Exam Vital Signs: Temp Pulse Resp BP Pulse Ox 98.9 F 80 16 110/65 99 02/17/18 11:37 02/17/18 11:37 02/17/18 11:37 02/17/18 11:37 02/17/18 11:37 Intake & Output 02/16/18 02/17/18 02/18/18 06:59 06:59 06:59 Intake Total 2891 1416 Output Total 3300 1565 Balance -409 -149 Weight 110.7 kg 100 kg Results Laboratory Results: 02/16/18 05:37 02/17/18 04:23 02/17/18 04:23 Sodium 137.2 Potassium 3.6 Chloride 106 Carbon Dioxide 28 Anion Gap 3 L BUN 9 Creatinine 0.75 Est GFR ( Amer) > 60 Est GFR (Non-Af Amer) > 60 Glucose 97 Calcium 8.2 L Impressions: Chest X-Ray 02/02/18 20:47 IMPRESSION: No acute cardiopulmonary findings. KUB X-Ray 02/10/18 00:00 IMPRESSION: Nonspecific bowel gas pattern likely represents an ileus, with a air filled mildly distended small bowel loops in the mid abdomen, and oral contrast from prior CT exams in the colon on today's study. Abdomen/Pelvis CT 02/13/18 00:00 IMPRESSION: 1. Ileus or partial small bowel obstruction. 2. Sigmoid diverticulosis. Small amount of ascites. 3. Small pleural effusions. Small Bowel X-Ray 02/13/18 00:00 IMPRESSION: At 0600 hours, oral contrast is seen throughout the gastrointestinal tract down to the rectum. There is distention of the stomach and small bowel out of proportion to colon. This could represent an ileus rather than a distal small bowel obstruction. Follow-up KUB in the morning may be useful. Venous Doppler Study 02/13/18 00:00 IMPRESSION: NO EVIDENCE DVT OR SVT IN EITHER LEG. Assessment & Plan - Diagnosis (1) Postoperative ileus Is this a current diagnosis for this admission?: Yes
--- NOTE | 2018-02-17 13:40 | PDOC PROGRESS REPORT ---
Subjective Subjective:: comfortable. Had BM and voiding well. Reason For Visit: ABD PAIN Physical Exam Vital Signs: Temp Pulse Resp BP Pulse Ox 98.9 F 80 16 110/65 99 02/17/18 11:37 02/17/18 11:37 02/17/18 11:37 02/17/18 11:37 02/17/18 11:37 Intake & Output 02/16/18 02/17/18 02/18/18 06:59 06:59 06:59 Intake Total 2891 1416 Output Total 3300 1565 Balance -409 -149 Weight 110.7 kg 100 kg Exam: Incision has good granulation tissue in between sutures Results Laboratory Results: 02/16/18 05:37 02/17/18 04:23 02/17/18 04:23 Sodium 137.2 Potassium 3.6 Chloride 106 Carbon Dioxide 28 Anion Gap 3 L BUN 9 Creatinine 0.75 Est GFR ( Amer) > 60 Est GFR (Non-Af Amer) > 60 Glucose 97 Calcium 8.2 L Impressions: Chest X-Ray 02/02/18 20:47 IMPRESSION: No acute cardiopulmonary findings. KUB X-Ray 02/10/18 00:00 IMPRESSION: Nonspecific bowel gas pattern likely represents an ileus, with a air filled mildly distended small bowel loops in the mid abdomen, and oral contrast from prior CT exams in the colon on today's study. Abdomen/Pelvis CT 02/13/18 00:00 IMPRESSION: 1. Ileus or partial small bowel obstruction. 2. Sigmoid diverticulosis. Small amount of ascites. 3. Small pleural effusions. Small Bowel X-Ray 02/13/18 00:00 IMPRESSION: At 0600 hours, oral contrast is seen throughout the gastrointestinal tract down to the rectum. There is distention of the stomach and small bowel out of proportion to colon. This could represent an ileus rather than a distal small bowel obstruction. Follow-up KUB in the morning may be useful. Venous Doppler Study 02/13/18 00:00 IMPRESSION: NO EVIDENCE DVT OR SVT IN EITHER LEG. Assessment & Plan - Diagnosis (1) Postoperative ileus Is this a current diagnosis for this admission?: Yes - Time Time Spent with patient: 15-24 minutes - Plan Summary Plan Summary: D/W Dr Cash. Plan is to discharge him tomorrow to rehab
[2018-02-18 05:17] LABS: HEMATOCRIT 28.5 % (37.9-51.0); HEMOGLOBIN 9.9 g/dL (13.5-17.0); MEAN CORPUSCULAR HEMOGLOBIN 31.9 pg (27.0-33.4); MEAN CORPUSCULAR HGB CONC 34.8 g/dL (32.0-36.0); MEAN CORPUSCULAR VOLUME 92 fl (80-97); PLATELET COUNT 398 10^3/uL (150-450); RED BLOOD COUNT 3.12 10^6/uL (4.35-5.55); RED CELL DISTRIBUTION WIDTH 14.6 % (11.5-14.0); WHITE BLOOD COUNT 7.1 10^3/uL (4.0-10.5)
[2018-02-18 05:36] LABS: ANION GAP 5 (5-19); BLOOD UREA NITROGEN 8 mg/dL (7-20); CALCIUM 8.1 mg/dL (8.4-10.2); CARBON DIOXIDE 27 mmol/L (22-30); CHLORIDE 106 mmol/L (98-107); GLUCOSE 95 mg/dL (75-110); POTASSIUM 3.9 mmol/L (3.6-5.0); SODIUM 138.1 mmol/L (137-145)
--- NOTE | 2018-02-18 08:13 | PDOC TRANSFER SUMMARY ---
General - Admit/Disc Date/PCP Admission Date/Primary Care Provider: 01/30/18 03:33 YVON STANTON MD Discharge Date: 02/18/18 - Discharge Diagnosis (1) Hypertension Is this a current diagnosis for this admission?: Yes Summary: Continues to Norvasc 5 mg p.o. daily (2) Pulmonary embolism Is this a current diagnosis for this admission?: Yes Summary: Patient's currently as per customer pricing manager patients does not require any Xarelto due to recent hematuria and patient's PE was in the May is more than 9 months treatment is done (3) Neuralgia, post-herpetic Is this a current diagnosis for this admission?: Yes Summary: Continues to gabapentin (4) Acute perforated appendicitis Is this a current diagnosis for this admission?: Yes Summary: Status post laparotomy currently all stable per surgery (5) Hematuria Is this a current diagnosis for this admission?: Yes Summary: Currently all resolved (6) UTI (urinary tract infection), bacterial Is this a current diagnosis for this admission?: Yes Summary: Currently all resolved (7) Generalized weakness Is this a current diagnosis for this admission?: Yes Summary: Currently all stableShe does need a rehab - Additional Information Resuscitation Status: Full Code Discharge Diet: Cardiac Discharge Activity: Activity As Tolerated Prescriptions: Acetaminophen [Tylenol 325 mg Tablet] 650 mg PO Q4HP PRN #20 tablet PRN Reason: Famotidine [Pepcid 20 mg Tablet] 20 mg PO Q12 #60 tablet Finasteride [Proscar 5 mg Tablet] 5 mg PO DAILY #30 tablet Tamsulosin HCl [Flomax 0.4 mg Cap.sr] 0.4 mg PO DAILY #30 cap.sr.24h Home Medications: Amlodipine Besylate [Norvasc 5 mg Tablet] 5 mg PO DAILY 01/30/18 Ergocalciferol (Vitamin D2) [Vitamin D2] 50,000 unit PO MO@1000 01/30/18 Timolol Maleate [Timoptic 0.5% Oph Soln 5 ml] 1 drop OU BID 01/30/18 Brimonidine Tartrate [Alphagan P] 1 drp OU TID 02/09/18 Acetaminophen [Tylenol 325 mg Tablet] 650 mg PO Q4HP PRN #20 tablet 02/17/18 Famotidine [Pepcid 20 mg Tablet] 20 mg PO Q12 #60 tablet 02/17/18 Finasteride [Proscar 5 mg Tablet] 5 mg PO DAILY #30 tablet 02/17/18 Tamsulosin HCl [Flomax 0.4 mg Cap.sr] 0.4 mg PO DAILY #30 cap.sr.24h 02/17/18 History of Present Illness Admission Date/PCP: 01/30/18 03:33 YVON STANTON MD History of Present Illness: EMELI DAMON is a 77 year old male This is a 77-year-old male with the history of the hypertensions history of postherpetic chronic pain and a history of the pulmonary embolism diagnosed in the May 2017 with Unprovoked Currently on Xarelto 20 mg p.o. dailyCame to the emergency department with a complaint of right lower quadrant pain started yesterday denied any nausea no vomiting denied any blood in the stools or any black stools Initial workup in the emergency department the CT abdomen and pelvis with a possible cecum diverticulitis no Sign of any acute appendicitis as per discussed with your physicians to the Dr. Stvoall Suggest no need any surgical intervention at this point When I saw the patient in the emergency department patient was feeling better still having some pain but controlled with the pain medications denied any nausea no vomiting Patient's denied any chest pain denied any shortness of the breath Patient's denied any history of coronary disease in the past Since last colonoscopy was done 3 years back was all stable Hospital Course Hospital Course: This is a 77-year-old male presenting the emergency department with right lower quadrant pain and patient will start an IV antibiotic initial CT scan was suggested diverticulitis and the repeat CT scan suggests a perforated appendix and patient's underwent for the laparotomy and remove the appendix and remove the abscess he has also developed postop ileus and postop urinary retention's and also developed hematuria Patient's was initially on Xarelto due to the patient have a pulmonary embolism back in May patient was put on Lovenox in the hospital but patient started developing hematuria and need to be stopped the medications Patient's had ultrasound of the lower extremity was done was negative for any DVT and hematology was consulted and suggest no need for any anticoagulation due to the recent hematuria and recent surgery Patient is otherwise denied any short of breath denied any chest pain Is postop ileus and postop urinary retention is all resolved Patient's otherwise p.o. intake is fair patients there was some lengthy hospitalizations due to the postop complications requiring rehab Patients need aggressive physical therapy Discussed with the patient and the family were extensively regarding the patient 's chronic conditions and follow-up Patients need a Xeroform dressing on the wound and follow-up with the [place] [facility] Physical Exam Vital Signs: Temp Pulse Resp BP Pulse Ox 99.5 F 82 18 105/68 99 02/17/18 15:17 02/17/18 15:17 02/17/18 15:17 02/17/18 15:17 02/17/18 15:17 Intake & Output 02/16/18 02/17/18 02/18/18 06:59 06:59 06:59 Intake Total 2891 1416 Output Total 3300 1565 Balance -409 -149 Weight 110.7 kg 100 kg General appearance: PRESENT: no acute distress, well-developed, well-nourished Head exam: PRESENT: atraumatic, normocephalic Eye exam: PRESENT: conjunctiva pink, EOMI, PERRLA. ABSENT: scleral icterus Ear exam: PRESENT: normal external ear exam Mouth exam: PRESENT: moist, tongue midline Neck exam: ABSENT: carotid bruit, JVD, lymphadenopathy, thyromegaly Respiratory exam: PRESENT: clear to auscultation [place]. ABSENT: rales, rhonchi, wheezes Cardiovascular exam: PRESENT: RRR. ABSENT: diastolic murmur, rubs, systolic murmur Pulses: PRESENT: normal dorsalis pedis pul Vascular exam: PRESENT: normal capillary refill GI/Abdominal exam: PRESENT: normal bowel sounds, soft. ABSENT: distended, guarding, mass, organolmegaly, rebound, tenderness Rectal exam: PRESENT: deferred Extremities exam: PRESENT: full ROM. ABSENT: calf tenderness, clubbing, pedal edema Neurological exam: PRESENT: alert, awake, oriented to person, oriented to place , oriented to time, oriented to situation, CN II-XII grossly intact. ABSENT: motor sensory deficit Psychiatric exam: PRESENT: appropriate affect, normal mood. ABSENT: homicidal ideation, suicidal ideation Skin exam: PRESENT: dry, intact, warm. ABSENT: cyanosis, rash Results Laboratory Results: 02/16/18 05:37 02/17/18 04:23 02/17/18 04:23 Sodium 137.2 Potassium 3.6 Chloride 106 Carbon Dioxide 28 Anion Gap 3 L BUN 9 Creatinine 0.75 Est GFR ( Amer) > 60 Est GFR (Non-Af Amer) > 60 Glucose 97 Calcium 8.2 L Impressions: Chest X-Ray 02/02/18 20:47 IMPRESSION: No acute cardiopulmonary findings. KUB X-Ray 02/10/18 00:00 IMPRESSION: Nonspecific bowel gas pattern likely represents an ileus, with a air filled mildly distended small bowel loops in the mid abdomen, and oral contrast from prior CT exams in the colon on today's study. Abdomen/Pelvis CT 02/13/18 00:00 IMPRESSION: 1. Ileus or partial small bowel obstruction. 2. Sigmoid diverticulosis. Small amount of ascites. 3. Small pleural effusions. Small Bowel X-Ray 02/13/18 00:00 IMPRESSION: At 0600 hours, oral contrast is seen throughout the gastrointestinal tract down to the rectum. There is distention of the stomach and small bowel out of proportion to colon. This could represent an ileus rather than a distal small bowel obstruction. Follow-up KUB in the morning may be useful. Venous Doppler Study 02/13/18 00:00 IMPRESSION: NO EVIDENCE DVT OR SVT IN EITHER LEG. Transfer Plan - Time Spent with Patient Time spent with patient: Greater than 30 Minutes Qualifiers - * PATIENT BEING DISCHARGED WITH ANY OF THE FOLLOWING DIAGNOSIS: No VTE patient discharged on overlapping Therapy?: Yes Plan Time Spent: Greater than 30 Minutes - Check a CBC and Chem-7 in 1 week Follow outpatient general surgery Continues physical therapy and fall precautions
[2018-02-18] MEDS: TAMSULOSIN HCL 0.4 MG CAP.SR.24H PO SCH (10:22)
[2018-02-18] MEDS: AMLODIPINE BESYLATE 5 MG TABLET PO SCH (10:22)
[2018-02-18] MEDS: TIMOLOL MALEATE 0.5% OPH SOLN 5 ML OU SCH ×2 (10:23→17:54)
[2018-02-18] MEDS: BRIMONIDINE 0.15% OU SCH ×3 (10:24→17:54)
[2018-02-18] MEDS: FAMOTIDINE 20 MG TABLET PO SCH (10:24)
[2018-02-18] MEDS: FINASTERIDE 5 MG TABLET PO SCH (10:24)
[2018-02-18 12:16] VITALS: BP 124/65
== END 2018-02-18 20:30 | DRG 339 ==
LOC: ER 22:33 → EH 01-30 03:33 → 5 01-30 16:30
PROVIDERS: ADMIT Family Medicine; ATTEND Surgery
PROC: 0DJD4ZZ Inspection of Lower Intestinal Tract, Percutaneous Endoscopic Approach (ICD-10-PCS; 2018-02-03)
PROC: 0DTJ0ZZ Resection of Appendix, Open Approach (ICD-10-PCS; principal; 2018-02-03 13:45)
PROC: 0WQFXZZ Repair Abdominal Wall, External Approach (ICD-10-PCS; 2018-02-10)
DX: K35.33 Acute appendicitis with perforation, localized peritonitis, and gangrene, with abscess (principal); B02.29 Other postherpetic nervous system involvement; K56.7 Ileus, unspecified; N39.0 Urinary tract infection, site not specified; B96.5 Pseudomonas (aeruginosa) (mallei) (pseudomallei) as the cause of diseases classified elsewhere; B95.4 Other streptococcus as the cause of diseases classified elsewhere; B96.89 Other specified bacterial agents as the cause of diseases classified elsewhere; B96.20 Unspecified Escherichia coli [E. coli] as the cause of diseases classified elsewhere; R31.9 Hematuria, unspecified; N99.89 Other postprocedural complications and disorders of genitourinary system; R33.8 Other retention of urine; K57.30 Diverticulosis of large intestine without perforation or abscess without bleeding; I10 Essential (primary) hypertension; J45.909 Unspecified asthma, uncomplicated; H54.7 Unspecified visual loss; Z86.711 Personal history of pulmonary embolism; Z79.01 Long term (current) use of anticoagulants
CPT/HCPCS: 00840; 36415; 71045; 74018; 74176; 74177; 74250; 80048; 80053; 81001; 82272; 83735; 85025; 85027; 87040; 87070; 87075; 87077; 87086; 87088; 87186; 87205; 88304; 93005; 93010; 93970; 94799; 96361; 96374; 96375; 99285; G8978-GP; G8979-GP; J0131; J0330; J0692; J0744; J1170; J1644; J1650; J1885; J1940; J1956; J2001; J2250; J2270; J2405; J2704; J3010; J3480; J3490; S0028

== ENCOUNTER 2018-12-16 08:15 | Day surgery (SDC) | payer MEDICARE, OTHER ==
[2018-12-09 10:17] LABS: ABSOLUTE EOSINOPHILS # (AUTO) 0.1 10^3/uL (0.0-0.6); ABSOLUTE LYMPHOCYTES (AUTO) 1.9 10^3/uL (0.5-4.7); ABSOLUTE MONOCYTES (AUTO) 0.7 10^3/uL (0.1-1.4); ABSOLUTE NEUT (AUTO) 1.8 10^3/uL (1.7-8.2); BASOPHILS % (AUTO) 0.8 % (0-2); EOSINOPHILS % (AUTO) 2.3 % (0-6); HEMATOCRIT 42.8 % (37.9-51.0); HEMOGLOBIN 14.6 g/dL (13.5-17.0); LYMPHOCYTES % (AUTO) 41.6 % (13-45); MEAN CORPUSCULAR HEMOGLOBIN 31.3 pg (27.0-33.4); MEAN CORPUSCULAR VOLUME 92 fl (80-97); MONOCYTES % (AUTO) 14.6 % (3-13); PLATELET COUNT 223 10^3/uL (150-450); RED BLOOD COUNT 4.64 10^6/uL (4.35-5.55); RED CELL DISTRIBUTION WIDTH 13.4 % (11.5-14.0); SEGMENTED NEUTROPHILS % (AUTO) 40.7 % (42-78); TOTAL CELLS COUNTED % (AUTO) 100 %; WHITE BLOOD COUNT 4.5 10^3/uL (4.0-10.5)
[2018-12-09 10:30] LABS: ANION GAP 8 (5-19); BLOOD UREA NITROGEN 15 mg/dL (7-20); CALCIUM 9.7 mg/dL (8.4-10.2); CARBON DIOXIDE 30 mmol/L (22-30); CHLORIDE 101 mmol/L (98-107); GLUCOSE 100 mg/dL (75-110)
--- NOTE | 2018-12-10 08:08 | EKG REPORT ---
SEVERITY:- ABNORMAL ECG - SINUS RHYTHM VENTRICULAR PREMATURE COMPLEX INFERIOR INFARCT, OLD : Confirmed by: Keri Dixon MD 09-Dec-2018 21:32:00
[~2018-12-16 08:15] MED LIST: CEFAZOLIN 1 GM/D5W RTU 1 GM/50 ML RTUPB IV ONE; CEFAZOLIN 1 GM/D5W RTU 1 GM/50 ML RTUPB IV PRN; LACTATED RINGERS 1000 ML IV PRN; LIDOCAINE 0.5% INJ-PF (5 MG/ML) 50 ML SDV SUBCUT PRN
[2018-12-16] MEDS ORDERED: BUPIVACAINE HCL 0.25 % INJ/PF (2.5 MG/1 ML) 30 ML VIAL ONE (09:06)
[2018-12-16] MEDS ORDERED: BUPIVACAINE INJ/PF LIPOSOME/PF 266 MG/20 ML SDV ONE (10:08)
[2018-12-16] MEDS ORDERED: FENTANYL CITRATE INJ/PF 250 MCG/5 ML AMPULE ONE (10:50)
[2018-12-16] MEDS ORDERED: PROPOFOL INJ 200 MG/20 ML VIAL IV ONE (10:51)
[2018-12-16] MEDS ORDERED: MIDAZOLAM 2 MG/2 ML INJ ONE (10:51)
[2018-12-16] MEDS ORDERED: BUPIVACAINE HCL 0.25 % INJ/PF (2.5 MG/1 ML) 30 ML VIAL INJ ONE (11:18)
[2018-12-16] MEDS ORDERED: MEPERIDINE HCL/PF INJ 25 MG/1 ML DISP.SYRIN IV PRN (11:27)
[2018-12-16] MEDS ORDERED: MORPHINE SULFATE 10 MG/ML INJ IV PRN (11:27)
[2018-12-16] MEDS ORDERED: FENTANYL CITRATE INJ/PF 100 MCG/2 ML AMPUL IV PRN ×3 (11:27)
[2018-12-16] MEDS ORDERED: OXYCODONE-ACETAMINOPHEN 5-325 MG TABLET PO PRN ×2 (11:27)
[2018-12-16] MEDS ORDERED: DIPHENHYDRAMINE HCL 50 MG/ML VIAL IV PRN (11:27)
[2018-12-16] MEDS ORDERED: PROMETHAZINE HCL INJ 25 MG/1 ML VIAL IV PRN ×2 (11:27)
--- NOTE | 2018-12-16 12:29 | Discharge Summary ---
Discharge Summary (SDC) - Discharge Final Diagnosis: Abdominal wall hernia, nonincarcerated, non-strangulated Date of Surgery: 12/16/18 Discharge Date: 12/16/18 Condition: Good Treatment or Instructions: [facility] [address] [place] [id number] Discharge Instructions: Open Abdominal Procedures (Hernia, Bowel Surgery) 1.General Information: a. DO NOT DRIVE a car or operative machinery for 1-2 weeks or as long as taking Narcotic pain medication. b. DO NOT consume alcohol, tranquilizers, sleeping medication, or any non- prescribed medication for 24 hours unless approved by your doctor or as long as taking pain medication. c. DO NOT make important decisions or sign any important papers for the first 24 hours after surgery. d. When discharged home the same day as surgery have a responsible person with you the first night. 2.Activity Restriction: 8 weeks; a. Avoid heavy lifting (> 10-15 lbs), straining abdominal muscles and sports, mowing lawn, vacuum plate cleaner and bending over a lot. b. Walking is important to avoid blood clots in the legs and deep breathing can prevent pneumonia. c. If it fine to go for walks, up and down steps, and ride in a car. 3.Treatment: a. You may remove dressing or Band-Aids the day after surgery and shower then daily is fine, but you should not bathe in a tub or go swimming for 2 weeks. b. If you have paper strips (steri strips) on the skin, do not remove them as they will fall off in the coming weeks. Pat them dry after your shower. Sutures beneath the paper strips dissolve. If you have skin sutures or metal rosendo they will be removed on your follow up visit. They may also get wet with a shower. c. Do not use oils, powders, or lotion on your incision. 4.Medications: a. b. Stop the narcotic when able since you cannot take it and drive and they cause constipation. You may switch to plain Tylenol, Advil, or Aleve as you transition from the narcotic. Many adults find good pain relief with Advil 600-800 mg three times a day with meal to work well and avoid narcotic use. High dose Advil should only be used for short courses since it can cause indigestion, ulcer bleeding in the stomach and kidney problems. c. You may resume all normal medications unless a change is specified by your doctors. d. a. If going home the same day as surgery start with clear liquids, and if you do well then advance to normal foods low inf fat and protein. Smaller portion size may be burrell the first night. b. When discharged after hospital stay you may resume a normal diet. 6.Notify Physician If: a. Pain is not relieved by pain medication b. Persistent nausea and vomiting c. Chills, fever (above 101) d. Persistent bleeding or swelling at the operative site e. Unable to urinate for 6-8 hours f. Increased redness, drainage, or foul smelling discharge from incision Please have patient wear abdominal binder when upright 7. Follow Up Care: a. Please call our office to schedule an appointment with your doctor for 2 weeks. In the event of any postoperative problems or questions you may call our office during business hours or the On-Call surgeon through the dough cutting machine operator at [facility]. [facility] [phone] [facility] [phone] (Ask for the surgeon telecommunications support) b. I understand the instructions for my postoperative care as described above and a copy has been given to me. Witness Patient/Significant Other Date Referrals: YVON STANTON MD [Primary Care Provider] - Discharge Diet: As Tolerated Discharge Activity: No Lifting Over 10 Pounds, No Lifting/Push/Pulling Home Care Assistance: None Needed Report the Following to Your Physician Immediately: Shortness of Breath, Increase in Pain, Fever over 101 Degrees
--- NOTE | 2018-12-16 12:37 | Operative Report ---
Operative Report DATE OF SURGERY: 12/16/18 PREOPERATIVE DIAGNOSIS: 1. History of appendectomy. 2. Moderate-sized midline ventral wall hernia, nonincarcerated, non-strangulated POSTOPERATIVE DIAGNOSIS: Same OPERATION: Open ventral wall hernia repair with ventralite ST mesh placed in the extraperitoneal position SURGEON: ANGELES LOCKETT ANESTHESIA: GA TISSUE REMOVED OR ALTERED: None COMPLICATIONS: None ESTIMATED BLOOD LOSS: 30 cc INTRAOPERATIVE FINDINGS: See below PROCEDURE: The patient was seen in the preoperative holding area then taken to the main operating room where general anesthesia was induced. He had voided prior to induction. So abducted, the abdomen was then prepped and draped in sterile fashion with Betadine. Surgical plan surgical timeout were conducted her graph findings were significant for a palpable supraumbilical fascial defect. The patient had a previous midline scar above and primarily below the umbilicus. The skin was anesthetized with quarter percent Marcaine. Approximately 9 cm incision was made in the midline. The underlying moderately large hernia sac was dissected free of all subcutaneous tissue down to the fascia. Fascial defect was approximately 6 to 7 cm diameter. My approach was to stay extraperitoneal, and dissected the hernia sac and associated peritoneum off of the retroperitoneal space, creating a pocket to place the mesh. This was done in a fairly successful fashion. Several entries into the hernia sac were made and subse quently closed with running and interrupted 3-0 Vicryl suture. We are able dissect the sac in continuity with the peritoneum off of the transversalis fascia in a circumferential fashion for several centimeters. The defect in the fascia was oriented in a oblong configuration, transversely. The defect was strictly above the umbilicus. I palpated the tissue below the umbilicus from nail cavity and there were adhesions so no further dissection was pursued caudad. We brought onto the field a [address] mesh and trimmed it by several centimeters in an oblong shape with a final fulguration of approximately 8 x 6 cm. I then used 4 interrupted 0 PDS sutures at the 12, 3, 6, 9:00 positions to fix the mesh into the extraperitoneal space. This worked out reasonably well with some redundancy of the mesh. All knots were secured. We now brought the fascial defect closed transversely with 2 running 0 PDS sutures again orienting the closure horizontally. There is satisfied with the closure. Bleeding was negligible throughout the case. Subcutaneous tissue approximated 2-0 Vicryl, and skin closed with rosendo. Quarter percent Marcaine was injected into the subcutaneous space, abdominal binder applied after comb web dressing applied. Patient tolerated procedure well, extubated, taken recovery room in stable condition.
[2018-12-16] MEDS: FENTANYL CITRATE INJ/PF 100 MCG/2 ML AMPUL ONE ×2 (12:40→12:50)
[2018-12-16] MEDS ORDERED: OXYCODONE-ACETAMINOPHEN 5-325 MG TABLET ONE (13:54)
[2018-12-16] MEDS ORDERED: LIDOCAINE 2% INJ-PF (20 MG/ML) 2 ML AMPUL ONE (14:50)
[2018-12-16] MEDS ORDERED: SUCCINYLCHOLINE CHLORIDE INJ 200 MG/10 ML VIAL ONE (14:50)
[2018-12-16] MEDS ORDERED: GLYCOPYRROLATE 1 MG/5 ML VIAL ONE (14:50)
[2018-12-16] MEDS ORDERED: ROCURONIUM BROMIDE INJ 50 MG/5 ML VIAL IV ONE (14:50)
[2018-12-16] MEDS ORDERED: DEXAMETHASONE SOD PHOSPHATE INJ 4 MG/1 ML VIAL ONE (14:50)
[2018-12-16] MEDS ORDERED: NEOSTIGMINE METHYLSULFATE 10 MG/10 ML VIAL ONE (14:50)
[2018-12-16] MEDS ORDERED: ONDANSETRON HCL INJ/PF 4 MG/2 ML SDV ONE (14:50)
[2018-12-16 14:54] VITALS: BP 142/79
== END 2018-12-16 14:35 | disposition home or self-care (01) ==
LOC: OROUT 08:15
PROVIDERS: ATTEND Surgery
DX: K43.9 Ventral hernia without obstruction or gangrene (principal); J45.909 Unspecified asthma, uncomplicated; I10 Essential (primary) hypertension; E55.9 Vitamin D deficiency, unspecified; N23 Unspecified renal colic; Z87.891 Personal history of nicotine dependence; Z99.89 Dependence on other enabling machines and devices; Z01.818 Encounter for other preprocedural examination; Z86.711 Personal history of pulmonary embolism; Z79.899 Other long term (current) drug therapy
CPT/HCPCS: 93005; 36415 ×2; 84132; 85025; 80048; 93010; 00752; 49560; 49568; C1781; J2250; J0690; J3490 ×3; J1100; J3010 ×2; J2710; A9270; J0330; J2405; J2704; C9290; 752